=== PATIENT | female | born 1935 | race Hispanic/Latino ===

== ENCOUNTER 2018-08-10 13:44 | Inpatient (IN) | payer MEDICARE ==
[2018-08-10] MEDS ORDERED: NACL 0.9% 250ML 500 ML IV ONE (14:09)
[2018-08-10] MEDS ORDERED: TYLENOL PO PRN ×2 (14:09→17:42)
[2018-08-10 14:39] LABS: Basophils # (Auto) 0.1 K/mm3 (0.0-0.1); Basophils % (Auto) 0.7 % (0.0-1.8); Eosinophils # (Auto) 0.1 K/mm3 (0.0-0.4); Eosinophils % (Auto) 1.4 % (0.0-4.3); Hematocrit 38.5 % (30.3-42.9); Hemoglobin 13.3 gm/dl (10.1-14.3); Lymphocytes % (Auto) 10.5 % (13.4-35.0); Mean Corpuscular HGB Conc 35 % (30-34); Mean Corpuscular Volume 94 fl (79-97); Monocytes # (Auto) 1.1 K/mm3 (0.0-0.8); Platelet Count 375 K/mm3 (140-440); Red Blood Count 4.09 M/mm3 (3.65-5.03); Red Cell Distribution Width 13.7 % (13.2-15.2)
[2018-08-10 15:06] LABS: Bacteria,Urine 3+ /HPF (Negative); Bilirubin,Urine NEG (Negative); Blood,Urine SM (Negative); Color,Urine Yellow (Yellow); Mucus,Urine FEW /HPF; Protein,Urine <15 mg/dL mg/dL (Negative); Urobilinogen,Urine < 2.0 mg/dL (<2.0)
[2018-08-10 15:07] LABS: Alanine Aminotransferase 7 units/L (7-56); BUN/Creatinine Ratio 10; Blood Urea Nitrogen 9 mg/dL (7-17); Calcium 8.5 mg/dL (8.4-10.2); Hemolysis Index 13
--- NOTE | 2018-08-10 15:22 | XRay Report ---
CHEST 1 VIEW 08/10/2018 2:40 PM INDICATION / CLINICAL INFORMATION: hypoxia fever. COMPARISON: None available. FINDINGS: SUPPORT DEVICES: None. HEART / MEDIASTINUM: No significant abnormality. LUNGS / PLEURA: Bilateral increased interstitial prominence likely secondary to interstitial fibrosis . No pneumothorax. ADDITIONAL FINDINGS: No significant additional findings. IMPRESSION: 1. No acute findings. 2. Probable chronic interstitial fibrosis. Signer Name: Armando Barriga MD Signed: 08/10/2018 2:18 PM Workstation Name: [id number]
--- NOTE | 2018-08-10 15:23 | XRay Report ---
AP PELVIS INDICATION / CLINICAL INFORMATION: fall weak. COMPARISON: None available. FINDINGS: No fracture or dislocation is seen within the pelvis or either hip. Moderate left and advanced right hip degenerative arthrosis is present. Signer Name: Armando Barriga MD Signed: 08/10/2018 2:19 PM Workstation Name: [id number]
[2018-08-10] MEDS ORDERED: PROVENTIL IH ONE (15:58)
[2018-08-10] MEDS ORDERED: K-DUR PO ONE (15:59)
[2018-08-10] MEDS ORDERED: LEVAQUIN 500MG/100ML 500 MG/100 ML BAG IV ONE (15:59)
[2018-08-10] MEDS ORDERED: SOLU-Medrol IV ONE (16:00)
--- NOTE | 2018-08-10 16:00 | Emergency Department Report ---
ED General Adult HPI - General Chief complaint: Weakness Stated complaint: WEAKNESS Time Seen by Provider: 08/10/18 14:02 Source: patient, EMS (ems notes not available at time of chart dictation), RN notes reviewed Mode of arrival: Stretcher Limitations: Physical Limitation - History of Present Illness Initial comments: This is a pleasant 82-year-old female. The patient is not known to this provider previously. Apparently has a past history of obesity, diabetes, and indicates that her primary care doctor is Dr. Miller She also indicates that she has chronic lower extremity lymphedema, and probable venous stasis. Patient presents to the ER today with a complaint of weakness. Apparently, she fell, and could not get up. She endorses a dry cough, and shortness of breath, malaise and fatigue. Symptoms are constant, worse with physical exertion and decreased with rest. She does not have physical pain at this time that she is aware of. She is unable to describe exacerbating or relieving factors. -: unknown Severity scale (0 -10): 0 Consistency: constant Improves with: none Worsens with: none - Related Data Home Medications Medication Instructions Recorded Confirmed Last Taken Anastrozole 1 mg PO DAILY 06/19/14 06/22/14 06/21/14 Brimonidine Tartrate [Brimonidine 1 drop OU BID 06/19/14 06/22/14 06/21/14 Tartrate 0.15%] Epinastine HCl 1 drop OU BID 06/19/14 06/22/14 06/21/14 Glimepiride 4 mg PO DAILY 06/19/14 06/22/14 06/21/14 LORazepam [Ativan] 0.5 mg PO QHS 06/19/14 06/22/14 06/21/14 Latanoprost 1 drop OU HS 06/19/14 06/22/14 06/21/14 Levothyroxine [Synthroid] 125 mcg PO QAM 06/19/14 06/22/14 06/22/14 Melatonin/Pyridoxine HCl (B6) 1 each PO HS 06/19/14 06/22/14 06/21/14 [Melatonin 1 mg Tablet] Metformin HCl 500 mg PO BID 06/19/14 06/22/14 06/21/14 Potassium Chloride [K-Tab ER] 10 meq PO DAILY 06/19/14 06/22/14 06/21/14 Valsartan/Hydrochlorothiazide 1 tab PO DAILY 06/19/14 06/22/14 06/22/14 [Valsartan-Hctz 80-12.5 mg] Allergies Allergy/AdvReac Type Severity Reaction Status Date / Time cefaclor [From [facility]] Allergy Hives Verified 06/19/14 11:51 BLOOD PRESSURE MED AdvReac Itching Uncoded 06/19/14 11:51 ED Review of Systems ROS: Stated complaint: WEAKNESS Other details as noted in HPI Constitutional: malaise, weakness Eyes: denies: other ENT: denies: epistaxis Respiratory: denies: wheezing Cardiovascular: denies: syncope Gastrointestinal: denies: abdominal pain, nausea, vomiting Genitourinary: denies: dysuria Musculoskeletal: arthralgia, myalgia Skin: rash, lesions Neurological: weakness. denies: headache ED Past Medical Hx - Past Medical History Previous Medical History?: Yes Hx Hypertension: Yes Hx Diabetes: Yes Hx Renal Disease: No - Surgical History Past Surgical History?: Yes Hx Breast Surgery: Yes (RIGHT LUMPECTOMY) - Social History Smoking Status: Former Smoker Substance Use Type: None - Medications Home Medications: Home Medications Medication Instructions Recorded Confirmed Last Taken Type Anastrozole 1 mg PO DAILY 06/19/14 06/22/14 06/21/14 History Brimonidine Tartrate [Brimonidine 1 drop OU BID 06/19/14 06/22/14 06/21/14 History Tartrate 0.15%] Epinastine HCl 1 drop OU BID 06/19/14 06/22/14 06/21/14 History Glimepiride 4 mg PO DAILY 06/19/14 06/22/14 06/21/14 History LORazepam [Ativan] 0.5 mg PO QHS 06/19/14 06/22/14 06/21/14 History Latanoprost 1 drop OU HS 06/19/14 06/22/14 06/21/14 History Levothyroxine [Synthroid] 125 mcg PO QAM 06/19/14 06/22/14 06/22/14 History Melatonin/Pyridoxine HCl (B6) 1 each PO HS 06/19/14 06/22/14 06/21/14 History [Melatonin 1 mg Tablet] Metformin HCl 500 mg PO BID 06/19/14 06/22/14 06/21/14 History Potassium Chloride [K-Tab ER] 10 meq PO DAILY 06/19/14 06/22/14 06/21/14 History Valsartan/Hydrochlorothiazide 1 tab PO DAILY 06/19/14 06/22/14 06/22/14 History [Valsartan-Hctz 80-12.5 mg] ED Physical Exam - General Limitations: Physical Limitation General appearance: alert, in no apparent distress - Head Head exam: Present: atraumatic, normocephalic - Eye Eye exam: Present: normal appearance, EOMI. Absent: nystagmus - ENT ENT exam: Present: normal exam, normal orophraynx, mucous membranes dry, normal external ear exam - Neck Neck exam: Present: normal inspection, full ROM. Absent: tenderness, meningismus - Respiratory Respiratory exam: Present: rhonchi. Absent: respiratory distress, wheezes, rales, chest wall tenderness, accessory muscle use - Cardiovascular Cardiovascular Exam: Present: regular rate, normal rhythm, normal heart sounds. Absent: bradycardia, tachycardia, irregular rhythm, systolic murmur, diastolic murmur, rubs, gallop - GI/Abdominal GI/Abdominal exam: Present: soft. Absent: distended, tenderness, guarding, rebound, rigid, pulsatile mass - Extremities Exam Extremities exam: Present: full ROM, pedal edema, other (2+ pulses noted in the bilateral upper, lower extremities. Compartments soft. No long bony tenderness. The pelvis is stable.). Absent: normal inspection (chronic appearing circumferential nontender erythema noted on the bilateral lower extremity is. This is likely venous stasis. Also has encrusted lesions, chronic appearing, with no tenderness.), tenderness, calf tenderness - Back Exam Back exam: Present: normal inspection, full ROM. Absent: tenderness, CVA tenderness (R), CVA tenderness (L), paraspinal tenderness, vertebral tenderness - Neurological Exam Neurological exam: Present: alert, oriented X3, other (Extraocular movements intact. Tongue midline. No facial droop. Facial sensation intact to light touch in the V1, V2, V3 distribution bilaterally. 5 and 5 strength in 4 extremities.. Sensation is intact to light touch in 4 extremities.). Absent: motor sensory deficit - Psychiatric Psychiatric exam: Present: normal affect, normal mood - Skin Skin exam: Present: warm. Absent: rash ED Course Vital Signs 08/10/18 08/10/18 08/10/18 13:57 14:00 14:03 Temperature 99.3 F Pulse Rate 84 Respiratory 20 Rate Blood Pressure 157/44 154/44 O2 Sat by Pulse 85 90 85 Oximetry 08/10/18 08/10/18 08/10/18 14:16 14:30 14:46 Temperature Pulse Rate 80 84 77 Respiratory 10 L 25 H 32 H Rate Blood Pressure 157/44 157/44 157/44 O2 Sat by Pulse 94 88 96 Oximetry 08/10/18 08/10/18 08/10/18 14:49 14:52 15:00 Temperature 99.5 F Pulse Rate 79 Respiratory 32 H 19 Rate Blood Pressure 148/52 O2 Sat by Pulse 96 92 Oximetry 08/10/18 16:00 Temperature Pulse Rate Respiratory Rate Blood Pressure 157/44 O2 Sat by Pulse 94 Oximetry - Reevaluation(s) Reevaluation #1: 08/10/18 16:05 Differential diagnosis, including but not limited to: Intracranial injury, cervical spine injury, pneumonia, reactive airway disease, COPD, interstitial lung disease, urinary tract infection, physical deconditioning Assessment and plan: 82-year-old female with low-grade temperature, rhonchi, hypoxic on room air, arterial blood gas confirms hypoxemic respiratory failure, CT scan of the chest looks suspicious for interstitial lung disease, question pneumonia, and urinalysis suggests urinary tract infection. Patient will be treated with nebulizers, steroids, antibiotics and IV fluids. Hospital physician has been paged to arrange admission. Reevaluation #2: 08/10/18 16:29 CT scan of the brain and cervical spine negative for acute traumatic disease. Age related expected findings are noted. CT scan of the chest suggests multi lobar pneumonia. The Hospital physician, Dr. Richardson, has accepted the patient to his service. ED Medical Decision Making - Lab Data Result diagrams: 08/10/18 14:20 08/10/18 14:20 Vital Signs 08/10/18 08/10/18 08/10/18 13:57 14:00 14:03 Temperature 99.3 F Pulse Rate 84 Respiratory 20 Rate Blood Pressure 157/44 154/44 O2 Sat by Pulse 85 90 85 Oximetry 08/10/18 08/10/18 08/10/18 14:16 14:30 14:46 Temperature Pulse Rate 80 84 77 Respiratory 10 L 25 H 32 H Rate Blood Pressure 157/44 157/44 157/44 O2 Sat by Pulse 94 88 96 Oximetry 08/10/18 08/10/18 08/10/18 14:49 14:52 15:00 Temperature 99.5 F Pulse Rate 79 Respiratory 32 H 19 Rate Blood Pressure 148/52 O2 Sat by Pulse 96 92 Oximetry Lab Results 08/10/18 08/10/18 08/10/18 Range/Units 14:20 14:20 14:20 WBC 9.5 (4.5-11.0) K/mm3 RBC 4.09 (3.65-5.03) M/mm3 Hgb 13.3 (10.1-14.3) gm/dl Hct 38.5 (30.3-42.9) % MCV 94 (79-97) fl MCH 33 H (28-32) pg MCHC 35 H (30-34) % RDW 13.7 (13.2-15.2) % Plt Count 375 (140-440) K/mm3 Lymph % (Auto) 10.5 L (13.4-35.0) % Mayes % (Auto) 11.0 H (0.0-7.3) % Eos % (Auto) 1.4 (0.0-4.3) % Baso % (Auto) 0.7 (0.0-1.8) % Lymph # 1.0 L (1.2-5.4) K/mm3 Mayes # 1.1 H (0.0-0.8) K/mm3 Eos # 0.1 (0.0-0.4) K/mm3 Baso # 0.1 (0.0-0.1) K/mm3 Seg Neutrophils % 76.4 H (40.0-70.0) % Seg Neutrophils # 7.3 (1.8-7.7) K/mm3 APTT 43.6 H (24.2-36.6) Sec. POC ABG pH (7.35-7.45) POC ABG pCO2 (35-45) POC ABG pO2 (80-105) POC ABG HCO3 (22-26 mml/L) POC ABG Total CO2 (23-27mmol/L) POC ABG O2 Sat POC ABG Base Excess ((-2) - (+3)mmol/L) FiO2 % Sodium 144 (137-145) mmol/L Potassium 2.9 L* (3.6-5.0) mmol/L Chloride 102.6 (98-107) mmol/L Carbon Dioxide 28 (22-30) mmol/L Anion Gap 16 mmol/L BUN 9 (7-17) mg/dL Creatinine 0.9 (0.7-1.2) mg/dL Estimated GFR > 60 ml/min BUN/Creatinine Ratio 10 % Glucose 131 H (65-100) mg/dL Lactic Acid (0.7-2.0) mmol/L Calcium 8.5 (8.4-10.2) mg/dL Magnesium (1.7-2.3) mg/dL Total Bilirubin 1.00 (0.1-1.2) mg/dL AST 16 (5-40) units/L ALT 7 (7-56) units/L Alkaline Phosphatase 87 (35-129) units/L Total Creatine Kinase (30-135) units/L Troponin T < 0.010 (0.00-0.029) ng/mL NT-Pro-B Natriuret Pep (0-900) pg/mL Total Protein 6.5 (6.3-8.2) g/dL Albumin 3.0 L (3.9-5) g/dL Albumin/Globulin Ratio 0.9 % TSH (0.270-4.200) mlU/mL Urine Color (Yellow) Urine Turbidity (Clear) Urine pH (5.0-7.0) Ur Specific [place] (1.003-1.030) Urine Protein (Negative) mg/dL Urine Glucose (UA) (Negative) mg/dL Urine Ketones (Negative) mg/dL Urine Blood (Negative) Urine Nitrite (Negative) Urine Bilirubin (Negative) Urine Urobilinogen (<2.0) mg/dL Ur Leukocyte Esterase (Negative) Urine WBC (Auto) (0.0-6.0) /HPF Urine RBC (Auto) (0.0-6.0) /HPF U Epithel Cells (Auto) (0-13.0) /HPF Urine Bacteria (Auto) (Negative) /HPF Urine Mucus /HPF 08/10/18 08/10/18 08/10/18 Range/Units 14:20 14:20 14:20 WBC (4.5-11.0) K/mm3 RBC (3.65-5.03) M/mm3 Hgb (10.1-14.3) gm/dl Hct (30.3-42.9) % MCV (79-97) fl MCH (28-32) pg MCHC (30-34) % RDW (13.2-15.2) % Plt Count (140-440) K/mm3 Lymph % (Auto) (13.4-35.0) % Mayes % (Auto) (0.0-7.3) % Eos % (Auto) (0.0-4.3) % Baso % (Auto) (0.0-1.8) % Lymph # (1.2-5.4) K/mm3 Mayes # (0.0-0.8) K/mm3 Eos # (0.0-0.4) K/mm3 Baso # (0.0-0.1) K/mm3 Seg Neutrophils % (40.0-70.0) % Seg Neutrophils # (1.8-7.7) K/mm3 APTT (24.2-36.6) Sec. POC ABG pH (7.35-7.45) POC ABG pCO2 (35-45) POC ABG pO2 (80-105) POC ABG HCO3 (22-26 mml/L) POC ABG Total CO2 (23-27mmol/L) POC ABG O2 Sat POC ABG Base Excess ((-2) - (+3)mmol/L) FiO2 % Sodium (137-145) mmol/L Potassium (3.6-5.0) mmol/L Chloride (98-107) mmol/L Carbon Dioxide (22-30) mmol/L Anion Gap mmol/L BUN (7-17) mg/dL Creatinine (0.7-1.2) mg/dL Estimated GFR ml/min BUN/Creatinine Ratio % Glucose (65-100) mg/dL Lactic Acid 1.30 (0.7-2.0) mmol/L Calcium (8.4-10.2) mg/dL Magnesium 2.00 (1.7-2.3) mg/dL Total Bilirubin (0.1-1.2) mg/dL AST (5-40) units/L ALT (7-56) units/L Alkaline Phosphatase (35-129) units/L Total Creatine Kinase 78 (30-135) units/L Troponin T (0.00-0.029) ng/mL NT-Pro-B Natriuret Pep 598.3 (0-900) pg/mL Total Protein (6.3-8.2) g/dL Albumin (3.9-5) g/dL Albumin/Globulin Ratio % TSH 1.380 (0.270-4.200) mlU/mL Urine Color (Yellow) Urine Turbidity (Clear) Urine pH (5.0-7.0) Ur Specific [place] (1.003-1.030) Urine Protein (Negative) mg/dL Urine Glucose (UA) (Negative) mg/dL Urine Ketones (Negative) mg/dL Urine Blood (Negative) Urine Nitrite (Negative) Urine Bilirubin (Negative) Urine Urobilinogen (<2.0) mg/dL Ur Leukocyte Esterase (Negative) Urine WBC (Auto) (0.0-6.0) /HPF Urine RBC (Auto) (0.0-6.0) /HPF U Epithel Cells (Auto) (0-13.0) /HPF Urine Bacteria (Auto) (Negative) /HPF Urine Mucus /HPF 08/10/18 08/10/18 08/10/18 Range/Units 14:30 14:49 15:06 WBC (4.5-11.0) K/mm3 RBC (3.65-5.03) M/mm3 Hgb (10.1-14.3) gm/dl Hct (30.3-42.9) % MCV (79-97) fl MCH (28-32) pg MCHC (30-34) % RDW (13.2-15.2) % Plt Count (140-440) K/mm3 Lymph % (Auto) (13.4-35.0) % Mayes % (Auto) (0.0-7.3) % Eos % (Auto) (0.0-4.3) % Baso % (Auto) (0.0-1.8) % Lymph # (1.2-5.4) K/mm3 Mayes # (0.0-0.8) K/mm3 Eos # (0.0-0.4) K/mm3 Baso # (0.0-0.1) K/mm3 Seg Neutrophils % (40.0-70.0) % Seg Neutrophils # (1.8-7.7) K/mm3 APTT (24.2-36.6) Sec. POC ABG pH 7.483 H (7.35-7.45) POC ABG pCO2 38.2 (35-45) POC ABG pO2 50 L (80-105) POC ABG HCO3 28.6 (22-26 mml/L) POC ABG Total CO2 30 (23-27mmol/L) POC ABG O2 Sat 88 POC ABG Base Excess 5 ((-2) - (+3)mmol/L) FiO2 21 % Sodium (137-145) mmol/L Potassium (3.6-5.0) mmol/L Chloride (98-107) mmol/L Carbon Dioxide (22-30) mmol/L Anion Gap mmol/L BUN (7-17) mg/dL Creatinine (0.7-1.2) mg/dL Estimated GFR ml/min BUN/Creatinine Ratio % Glucose (65-100) mg/dL Lactic Acid (0.7-2.0) mmol/L Calcium (8.4-10.2) mg/dL Magnesium (1.7-2.3) mg/dL Total Bilirubin (0.1-1.2) mg/dL AST (5-40) units/L ALT (7-56) units/L Alkaline Phosphatase (35-129) units/L Total Creatine Kinase (30-135) units/L Troponin T (0.00-0.029) ng/mL NT-Pro-B Natriuret Pep 571.8 (0-900) pg/mL Total Protein (6.3-8.2) g/dL Albumin (3.9-5) g/dL Albumin/Globulin Ratio % TSH (0.270-4.200) mlU/mL Urine Color Yellow (Yellow) Urine Turbidity Slightly-cloudy (Clear) Urine pH 7.0 (5.0-7.0) Ur Specific [place] 1.016 (1.003-1.030) Urine Protein <15 mg/dl (Negative) mg/dL Urine Glucose (UA) Neg (Negative) mg/dL Urine Ketones Neg (Negative) mg/dL Urine Blood Sm (Negative) Urine Nitrite Pos (Negative) Urine Bilirubin Neg (Negative) Urine Urobilinogen < 2.0 (<2.0) mg/dL Ur Leukocyte Esterase Tr (Negative) Urine WBC (Auto) 19.0 H (0.0-6.0) /HPF Urine RBC (Auto) 4.0 (0.0-6.0) /HPF U Epithel Cells (Auto) 3.0 (0-13.0) /HPF Urine Bacteria (Auto) 3+ (Negative) /HPF Urine Mucus Few /HPF - EKG Data -: EKG Interpreted by Nm EKG shows normal: sinus rhythm Rate: normal - EKG Data When compared to previous EKG there are: previous EKG unavailable 08/10/18 16:07 This is a sinus rhythm, 80 beats per minute, normal axis, QTC prolonged, low voltage, motion artifact, axis, abnormal EKG, no prior for comparison, this EKG is not consistent with ST elevation myocardial infarction - Radiology Data Radiology results: pending, report reviewed, image reviewed X-ray the chest shows no traumatic findings. Chronic probable interstitial fibrosis is suggested. X-ray of the pelvis negative for acute disease. Chronic arthritic changes suggestive. Report Referring Physician: ELIUD MEDRANO Patient Name: JUNIOR SADLER Date of : 1935 Sex: Female Report Date: 2018-08-10 Report Status: [place] [address] Cat Scan Report Signed Patient: JUNIOR SADLER MR#: [id number] : 1935 Acct:[id number] Age/Sex: 82 / F ADM Date: 08/10/18 Loc: ED Attending Dr: Ordering Physician: ELIUD MEDRANO MD Date of Service: 08/10/18 Procedure(s): CT head/brain wo con Accession Number(s): [id number] cc: ELIUD MEDRANO MD CT HEAD WITHOUT CONTRAST HISTORY: Acute head trauma, pain, fall today. TECHNIQUE: Axial imaging performed from the skull apex through the skull base without the use of contrast. All CT scans at this location are performed using CT dose reduction for ALARA by means of automated exposure control. COMPARISON: None FINDINGS: Parenchyma: No acute intracranial hemorrhage or parenchymal abnormality. Mild chronic ischemic changes are noted in the white matter. Ventricles: There is mild diffuse brain atrophy with commensurate ventricular enlargement which is likely age appropriate. Soft tissues: Soft tissues including the orbits appear normal. Bones: No acute osseous abnormality. Sinuses: Sinuses and mastoid air cells are clear. IMPRESSION: No acute abnormality. Volume loss and chronic ischemic changes in the white matter. CT CERVICAL SPINE WITHOUT CONTRAST INDICATION: Acute neck pain, trauma, fall today. TECHNIQUE: Axial imaging performed through the cervical without the use of contrast. Sagittal and coronal reconstructed images were also reviewed. All CT scans at this location are performed using CT dose reduction for ALARA by means of automated exposure control. COMPARISON: None FINDINGS: Alignment: Spinal alignment is normal. Bones: There is no acute osseous abnormality. Mild multilevel discogenic DJD is present. Minimal diffuse facet arthropathy is appreciated. Mild osteopenia is noted. Soft tissues: No acute or significant incidental soft tissue abnormality. IMPRESSION: No acute abnormality. Mild multilevel cervical spondylosis. Mild osteopenia. CT CHEST WITHOUT CONTRAST INDICATION : Hypoxia, right-sided rhonchi, status post fall today, productive cough for 2 weeks. TECHNIQUE: Axial imaging performed through the chest without the use of intravenous contrast. All CT scans at this location are performed us ing CT dose reduction for ALARA by means of automated exposure control. COMPARISON: None FINDINGS: The thyroid gland is atrophic. The tracheobronchial tree and esophagus are within normal limits. Heart size is borderline with moderate coronary artery calcifications. The aorta is normal caliber. Normal pericardium. Mild underlying diffuse groundglass infiltration is present in both lungs. There is patchy airspace disease in the posterior right upper lobe and superior right lower lobe. An infectious infiltrate could be considered. There is no evidence for consolidation, mass, pleural effusion or pneumothorax. The bony structures are demineralized but intact. Moderate multilevel thoracic spondylosis is noted. IMPRESSION: Patchy infiltrate in the right lung as described. Correlate for pneumonia. Borderline to mild cardiomegaly. Degenerative changes in the spine. Signer Name: Quang Conn Jr, MD Signed: 08/10/2018 3:22 PM Workstation Name: [id number] Transcribed By: REF Dictated By: MOE ATKINSON MD Electronically Authenticated By: MOE ATKINSON MD Signed Date/Time: 08/10/18 1522 Critical care attestation.: If time is entered above; I have spent that time in minutes in the direct care of this critically ill patient, excluding procedure time. ED Disposition Clinical Impression: Acute respiratory failure with hypoxemia, Debility Urinary tract infection Qualifiers: Indwelling urinary catheter type: unspecified Encounter type: initial encounter Disposition: OP ADMIT IP TO THIS HOSP Is pt being admited?: Yes Condition: Fair Referrals: JESSICA WAYNE [Other] - 3-5 Days
--- NOTE | 2018-08-10 16:26 | Cat Scan Report ---
CT HEAD WITHOUT CONTRAST HISTORY: Acute head trauma, pain, fall today. TECHNIQUE: Axial imaging performed from the skull apex through the skull base without the use of con trast. All CT scans at this location are performed using CT dose reduction for ALARA by means of aut omated exposure control. COMPARISON: None FINDINGS: Parenchyma: No acute intracranial hemorrhage or parenchymal abnormality. Mild chronic ischemic ho es are noted in the white matter. Ventricles: There is mild diffuse brain atrophy with commensurate ventricular enlargement which is l ikely age appropriate. Soft tissues: Soft tissues including the orbits appear normal. Bones: No acute osseous abnormality. Sinuses: Sinuses and mastoid air cells are clear. IMPRESSION: No acute abnormality. Volume loss and chronic ischemic changes in the white matter. CT CERVICAL SPINE WITHOUT CONTRAST INDICATION: Acute neck pain, trauma, fall today. TECHNIQUE: Axial imaging performed through the cervical without the use of contrast. Sagittal and c oronal reconstructed images were also reviewed. All CT scans at this location are performed using CT dose reduction for ALARA by means of automated exposure control. COMPARISON: None FINDINGS: Alignment: Spinal alignment is normal. Bones: There is no acute osseous abnormality. Mild multilevel discogenic DJD is present. Minimal d iffuse facet arthropathy is appreciated. Mild osteopenia is noted. Soft tissues: No acute or significant incidental soft tissue abnormality. IMPRESSION: No acute abnormality. Mild multilevel cervical spondylosis. Mild osteopenia. CT CHEST WITHOUT CONTRAST INDICATION : Hypoxia, right-sided rhonchi, status post fall today, productive cough for 2 weeks. TECHNIQUE: Axial imaging performed through the chest without the use of intravenous contrast. All C T scans at this location are performed using CT dose reduction for ALARA by means of automated exposu re control. COMPARISON: None FINDINGS: The thyroid gland is atrophic. The tracheobronchial tree and esophagus are within normal l imits. Heart size is borderline with moderate coronary artery calcifications. The aorta is normal shaina iber. Normal pericardium. Mild underlying diffuse groundglass infiltration is present in both lungs. There is patchy airspace d isease in the posterior right upper lobe and superior right lower lobe. An infectious infiltrate coul d be considered. There is no evidence for consolidation, mass, pleural effusion or pneumothorax. The bony structures are demineralized but intact. Moderate multilevel thoracic spondylosis is noted. IMPRESSION: Patchy infiltrate in the right lung as described. Correlate for pneumonia. Borderline to mild cardiomegaly. Degenerative changes in the spine. Signer Name: Quang Conn Jr, MD Signed: 08/10/2018 3:22 PM Workstation Name: [id number]
[2018-08-10] MEDS ORDERED: NACL 0.9% 500 ML 500 ML IV ONE (16:30)
[2018-08-10] MEDS: KCL 10MEQ/100ML 10 MEQ/100 ML BAG IV SCH ×5 (16:52→21:39)
[2018-08-10] MEDS ORDERED: PROVENTIL IH PRN (17:41)
[2018-08-10] MEDS ORDERED: IBUPROFEN PO PRN (17:42)
[2018-08-10] MEDS ORDERED: SODIUM CHLORIDE FLUSH SYRINGE 10 ML IV PRN (17:42)
[2018-08-10] MEDS ORDERED: DILAUDID IV PRN (17:42)
[2018-08-10] MEDS ORDERED: ZOFRAN IV PRN (17:42)
[2018-08-10] MEDS ORDERED: KCL 10MEQ/100ML 10 MEQ/100 ML BAG IV ONE (17:46)
[2018-08-10] MEDS ORDERED: NON-FORMULARY (Levothyroxine Sodium [Synthroid] 137 MCG) PO SCH (18:00)
[2018-08-10] MEDS ORDERED: NON-FORMULARY (Potassium Chloride [K-Tab Er] 10 MEQ) PO SCH (18:00)
[2018-08-10] MEDS ORDERED: NON-FORMULARY (Telmisartan [Telmisartan] 40 MG) PO SCH (18:00)
--- NOTE | 2018-08-10 18:23 | History and Physical Report ---
History of Present Illness Date of examination: 08/10/18 Date of admission: 08/10/18 16:30 Chief complaint: Fall with the neck pain and weakness and difficulty getting up Cough and shortness of breath for 3 days. History of present illness: 82-year-old female with history of type 2 diabetes hypothyroidism and hypertension comes in for a fall from which she could not get up. Patient has some neck pain. Patient also has been coughing and short of breath for the last 3-4 days. Dry cough. Nonproductive. No fever or chills. Becomes short of breath with very minimal exertion. Also some wheezing present. Patient also has swelling of the of both lower extremities. No pain. No recent travel. No exacerbating or relieving factors. No history of COPD in the past. Past Medical History Previous Medical History?: Yes Hypertension: Yes Diabetes: Yes Hypothyroidism Glaucoma Breast cancer by history Recurrent hypokalemia Surgical History Past Surgical History?: Yes Breast Surgery: Yes (RIGHT LUMPECTOMY) Social History Smoking Status: Former Smoker Substance Use Type: None Family history Htn Medications Home Medications: Home Medications Medication Instructions Recorded Confirmed Last Taken Type Anastrozole 1 mg PO DAILY 06/19/14 06/22/14 06/21/14 History Brimonidine Tartrate [Brimonidine 1 drop OU BID 06/19/14 06/22/14 06/21/14 History Tartrate 0.15%] Epinastine HCl 1 drop OU BID 06/19/14 06/22/14 06/21/14 History Glimepiride 4 mg PO DAILY 06/19/14 06/22/14 06/21/14 History LORazepam [Ativan] 0.5 mg PO QHS 06/19/14 06/22/14 06/21/14 History Latanoprost 1 drop OU HS 06/19/14 06/22/14 06/21/14 History Levothyroxine [Synthroid] 125 mcg PO QAM 06/19/14 06/22/14 06/22/14 History Melatonin/Pyridoxine HCl (B6) 1 each PO HS 06/19/14 06/22/14 06/21/14 History [Melatonin 1 mg Tablet] Metformin HCl 500 mg PO BID 06/19/14 06/22/14 06/21/14 History Potassium Chloride [K-Tab ER] 10 meq PO DAILY 06/19/14 06/22/14 06/21/14 History Valsartan/Hydrochlorothiazide 1 tab PO DAILY 06/19/14 06/22/14 06/22/14 History [Valsartan-Hctz 80-12.5 mg] Review of systems ROS: Stated complaint: WEAKNESS Other details as noted in HPI Constitutional: malaise, weakness Eyes: denies: other ENT: denies: epistaxis Respiratory: wheezing, cough and shortness of breath Cardiovascular: denies: syncope Gastrointestinal: denies: abdominal pain, nausea, vomiting Genitourinary: denies: dysuria Musculoskeletal: arthralgia, myalgia Skin: rash, lesions Neurological: weakness. denies: headache 14 point review of systems done--- otherwise negative Medications and Allergies Allergies Allergy/AdvReac Type Severity Reaction Status Date / Time cefaclor [From Ceclor] Allergy Hives Verified 06/19/14 11:51 ciprofloxacin [From Cipro] Allergy Unknown Verified 08/10/18 16:56 levofloxacin [From Levaquin] Allergy Unknown Verified 08/10/18 16:56 Sulfa (Sulfonamide Allergy Unknown Verified 08/10/18 16:56 Antibiotics) lisinopril AdvReac Unknown Verified 08/10/18 16:56 usinadol Allergy Unknown Uncoded 08/10/18 16:56 BLOOD PRESSURE MED AdvReac Itching Uncoded 06/19/14 11:51 Home Medications Medication Instructions Recorded Confirmed Last Taken Type Latanoprost 1 drop OU HS 06/19/14 08/10/18 06/21/14 History Potassium Chloride [K-Tab ER] 10 meq PO DAILY 06/19/14 08/10/18 06/21/14 History Levothyroxine Sodium [Synthroid] 137 mcg PO QDAY 08/10/18 08/10/18 Unknown History Telmisartan 40 mg PO QDAY 08/10/18 08/10/18 Unknown History metFORMIN XR [Glucophage XR] 500 mg PO BID 08/10/18 08/10/18 Unknown History Active Meds: Active Medications Acetaminophen (Tylenol) 650 mg PO Q6H PRN PRN Reason: Pain, Mild (1-3) Acetaminophen (Tylenol) 650 mg PO Q4H PRN PRN Reason: Pain MILD(1-3)/Fever >100.5/BAKER Albuterol (Proventil) 2.5 mg IH Q4HRT PRN PRN Reason: Shortness Of Breath Albuterol/Ipratropium (Duoneb *Not For Prn Use*) 1 ampul IH QIDRT [facility] Famotidine (Pepcid) 20 mg IV BID [facility] Hydromorphone HCl (Dilaudid) 0.5 mg IV Q3H PRN PRN Reason: Pain , Severe (7-10) Ceftriaxone Sodium (Rocephin/Ns 2 Gm/100 Ml) 2 gm in 100 mls @ 200 mls/hr IV Q24HR [facility]; Protocol Azithromycin 500 mg/ Sodium (Chloride) 250 mls @ 250 mls/hr IV Q24HR [facility]; Protocol Potassium Chloride (Kcl 10meq/100ml) 10 meq in 100 mls @ 100 mls/hr IV Q1H [facility] Stop: 08/10/18 21:59 Ibuprofen (Ibuprofen) 600 mg PO Q6H PRN PRN Reason: Pain, Mild (1-3) Insulin Human Lispro (Humalog) 0 unit SUB-Q ACHS [facility]; Protocol Latanoprost (Latanoprost 0.005%) 1 drops OU HS [facility] Levothyroxine Sodium (Synthroid) 112 mcg PO DAILY@0600 [facility] Levothyroxine Sodium (Synthroid) 25 mcg PO DAILY@0600 [facility] Losartan Potassium (Cozaar) 50 mg PO QDAY [facility] Metformin HCl (Glucophage Xr) 500 mg PO BID [facility] Methylprednisolone Sodium Succinate (Solu-Medrol) 80 mg IV Q8HR [facility] Ondansetron HCl (Zofran) 4 mg IV Q8H PRN PRN Reason: Nausea And Vomiting Potassium Chloride (K-Dur) 10 meq PO QDAY [facility] Sodium Chloride (Sodium Chloride Flush Syringe 10 Ml) 10 ml IV BID [facility] Sodium Chloride (Sodium Chloride Flush Syringe 10 Ml) 10 ml IV PRN PRN PRN Reason: LINE FLUSH Exam - Constitutional Vitals: Temp Pulse Resp BP Pulse Ox 99.5 F 87 11 L 145/59 91 08/10/18 14:49 08/10/18 18:00 08/10/18 18:00 08/10/18 18:00 08/10/18 18:00 General appearance: Present: severe distress, well-nourished - EENT Eyes: Present: PERRL ENT: hearing intact, clear oral mucosa - Neck Neck: Present: supple, normal ROM - Respiratory Respiratory effort: normal Respiratory: bilateral: diminished, rhonchi - Cardiovascular Heart rate: 78 Rhythm: regular Heart Sounds: Present: S1 & S2. Absent: rub, click - Extremities Extremities: no ischemia, pulses intact, pulses symmetrical, No edema Peripheral Pulses: within normal limits - Abdominal General gastrointestinal: Present: soft, non-tender, non-distended, normal bowel sounds Female genitourinary: Present: normal - Rectal Rectal Exam: deferred - Integumentary Integumentary: Present: clear, warm, dry - Musculoskeletal Musculoskeletal: gait normal, strength equal bilaterally - Psychiatric Psychiatric: appropriate mood/affect, intact judgment & insight - Neurologic Neurologic: CNII-XII intact, moves all extremities - Allied Health Allied health notes reviewed: nursing, case management Results - Labs CBC & Chem 7: 08/10/18 14:20 08/10/18 14:20 Labs: Laboratory Last Values WBC 9.5 K/mm3 (4.5-11.0) 08/10/18 14:20 RBC 4.09 M/mm3 (3.65-5.03) 08/10/18 14:20 Hgb 13.3 gm/dl (10.1-14.3) 08/10/18 14:20 Hct 38.5 % (30.3-42.9) 08/10/18 14:20 MCV 94 fl (79-97) 08/10/18 14:20 MCH 33 pg (28-32) H 08/10/18 14:20 MCHC 35 % (30-34) H 08/10/18 14:20 RDW 13.7 % (13.2-15.2) 08/10/18 14:20 Plt Count 375 K/mm3 (140-440) 08/10/18 14:20 Lymph % (Auto) 10.5 % (13.4-35.0) L 08/10/18 14:20 [place] % (Auto) 11.0 % (0.0-7.3) H 08/10/18 14:20 Eos % (Auto) 1.4 % (0.0-4.3) 08/10/18 14:20 Baso % (Auto) 0.7 % (0.0-1.8) 08/10/18 14:20 Lymph # 1.0 K/mm3 (1.2-5.4) L 08/10/18 14:20 [place] # 1.1 K/mm3 (0.0-0.8) H 08/10/18 14:20 Eos # 0.1 K/mm3 (0.0-0.4) 08/10/18 14:20 Baso # 0.1 K/mm3 (0.0-0.1) 08/10/18 14:20 Seg Neutrophils % 76.4 % (40.0-70.0) H 08/10/18 14:20 Seg Neutrophils # 7.3 K/mm3 (1.8-7.7) 08/10/18 14:20 APTT 43.6 Sec. (24.2-36.6) H 08/10/18 14:20 POC ABG pH 7.483 (7.35-7.45) H 08/10/18 15:06 POC ABG pCO2 38.2 (35-45) 08/10/18 15:06 POC ABG pO2 50 (80-105) L 08/10/18 15:06 POC ABG HCO3 28.6 (22-26 mml/L) 08/10/18 15:06 POC ABG Total CO2 30 (23-27mmol/L) 08/10/18 15:06 POC ABG O2 Sat 88 08/10/18 15:06 POC ABG Base Excess 5 ((-2) - (+3)mmol/L) 08/10/18 15:06 21 % 08/10/18 15:06 Sodium 144 mmol/L (137-145) 08/10/18 14:20 Potassium 2.9 mmol/L (3.6-5.0) L* 08/10/18 14:20 Chloride 102.6 mmol/L (98-107) 08/10/18 14:20 Carbon Dioxide 28 mmol/L (22-30) 08/10/18 14:20 16 mmol/L 08/10/18 14:20 BUN 9 mg/dL (7-17) 08/10/18 14:20 0.9 mg/dL (0.7-1.2) 08/10/18 14:20 Estimated GFR > 60 ml/min 08/10/18 14:20 10 % 08/10/18 14:20 Glucose 131 mg/dL (65-100) H 08/10/18 14:20 Lactic Acid 1.30 mmol/L (0.7-2.0) 08/10/18 14:20 Calcium 8.5 mg/dL (8.4-10.2) 08/10/18 14:20 Magnesium 2.00 mg/dL (1.7-2.3) 08/10/18 14:20 1.00 mg/dL (0.1-1.2) 08/10/18 14:20 AST 16 units/L (5-40) 08/10/18 14:20 ALT 7 units/L (7-56) 08/10/18 14:20 87 units/L (35-129) 08/10/18 14:20 78 units/L (30-135) 08/10/18 14:20 < 0.010 ng/mL (0.00-0.029) 08/10/18 14:20 NT-Pro-B Natriuret Pep 571.8 pg/mL (0-900) 08/10/18 14:30 6.5 g/dL (6.3-8.2) 08/10/18 14:20 3.0 g/dL (3.9-5) L 08/10/18 14:20 0.9 % 08/10/18 14:20 TSH 1.380 mlU/mL (0.270-4.200) 08/10/18 14:20 Yellow (Yellow) 08/10/18 14:49 Slightly-cloudy (Clear) 08/10/18 14:49 7.0 (5.0-7.0) 08/10/18 14:49 Ur Specific [place] 1.016 (1.003-1.030) 08/10/18 14:49 <15 mg/dl mg/dL (Negative) 08/10/18 14:49 Neg mg/dL (Negative) 08/10/18 14:49 Neg mg/dL (Negative) 08/10/18 14:49 Sm (Negative) 08/10/18 14:49 Pos (Negative) 08/10/18 14:49 Neg (Negative) 08/10/18 14:49 < 2.0 mg/dL (<2.0) 08/10/18 14:49 Ur Leukocyte Esterase Tr (Negative) 08/10/18 14:49 19.0 /HPF (0.0-6.0) H 08/10/18 14:49 4.0 /HPF (0.0-6.0) 08/10/18 14:49 U Epithel Cells (Auto) 3.0 /HPF (0-13.0) 08/10/18 14:49 3+ /HPF (Negative) 08/10/18 14:49 Few /HPF 08/10/18 14:49 Short CBC 08/10/18 Range/Units 14:20 WBC 9.5 (4.5-11.0) K/mm3 Hgb 13.3 (10.1-14.3) gm/dl Hct 38.5 (30.3-42.9) % Plt Count 375 (140-440) K/mm3 BMP 08/10/18 14:20 Sodium 144 Potassium 2.9 L* Chloride 102.6 Carbon Dioxide 28 BUN 9 Creatinine 0.9 Glucose 131 H Calcium 8.5 Cardiac Enzymes 08/10/18 08/10/18 Range/Units 14:20 14:20 Total Creatine Kinase 78 (30-135) units/L Troponin T < 0.010 (0.00-0.029) ng/mL Liver Function 08/10/18 Range/Units 14:20 Total Bilirubin 1.00 (0.1-1.2) mg/dL AST 16 (5-40) units/L ALT 7 (7-56) units/L Alkaline Phosphatase 87 (35-129) units/L Albumin 3.0 L (3.9-5) g/dL Urine 08/10/18 Range/Units 14:49 Urine Color Yellow (Yellow) Urine pH 7.0 (5.0-7.0) Ur Specific [place] 1.016 (1.003-1.030) Urine Protein <15 mg/dl (Negative) mg/dL Urine Glucose (UA) Neg (Negative) mg/dL - Imaging and Cardiology EKG: report reviewed Chest x-ray: report reviewed CT scan - chest: report reviewed CT Scan - head: report reviewed CT scan - pelvis: report reviewed Imaging and Cardiology: CXR IMPRESSION: 1. No acute findings. 2. Probable chronic interstitial fibrosis. Pelvic x-rays FINDINGS: No fracture or dislocation is seen within the pelvis or either hip. Moderate left and advanced right hip degenerative arthrosis is present. Chest CT IMPRESSION: Patchy infiltrate in the right lung as described. Correlate for pneumonia. Borderline to mild cardiomegaly. Degenerative changes in the spine. Head CT and C-spine CT IMPRESSION: No acute abnormality. Volume loss and chronic ischemic changes in the white matter. CT CERVICAL SPINE WITHOUT CONTRAST INDICATION: Acute neck pain, trauma, fall today. FINDINGS: Alignment: Spinal alignment is normal. Bones: There is no acute osseous abnormality. Mild multilevel discogenic DJD is present. Minimal diffuse facet arthropathy is appreciated. Mild osteopenia is noted. Soft tissues: No acute or significant incidental soft tissue abnormality IMPRESSION: No acute abnormality. Mild multilevel cervical spondylosis. Mild osteopenia. Assessment and Plan Advance Directives: Yes (full code) VTE prophylaxis?: Chemical Plan of care discussed with patient/family: Yes - Patient Problems (1) Acute respiratory failure with hypoxemia Current Visit: Yes Status: Acute Plan to address problem: Patient is hypoxic Patient may be having underlying pulmonary fibrosis Pulmonary consultation requested Continue high flow oxygen and BiPAP if necessary Duonebs [id number] IV Solu-Medrol IV Rocephin and Zithromax Patient is allergic to quinolones and cefaclor (2) Hypokalemia Current Visit: Yes Status: Acute Plan to address problem: Etiology unclear Patient not on any diuretics Potassium being supplemented by intravenous and orally Check potassium level (3) Interstitial lung disease Current Visit: Yes Status: Chronic Plan to address problem: Highly possible We will defer to pulmonary consult (4) Right lower lobe pneumonia Current Visit: Yes Status: Acute Qualifiers: Aspiration pneumonia type: unspecified Plan to address problem: Patchy infiltrate on the CT chest IV antibiotics for now Aspiration unlikely (5) Type 2 diabetes mellitus Current Visit: Yes Status: Chronic Qualifiers: Diabetes mellitus director long term care insulin use: without half-way use Plan to address problem: Check hemoglobin A1c Continue metformin Insulin coverage for now (6) Glaucoma Current Visit: Yes Status: Chronic Qualifiers: Glaucoma type: unspecified Laterality: bilateral Qualified Code(s): H40.9 - Unspecified glaucoma Plan to address problem: Continue latanoprost eyedrops (7) Hypothyroidism Current Visit: Yes Status: Chronic Qualifiers: Hypothyroidism type: acquired Qualified Code(s): E03.9 - Hypothyroidism, unspecified Plan to address problem: Check TSH Continue Synthroid (8) Urinary tract infection Current Visit: Yes Status: Acute Qualifiers: Indwelling urinary catheter type: unspecified Encounter type: initial encounter Plan to address problem: Patient on ceftriaxone for pneumonia which should cover the urinary tract infection (9) Hypertension Current Visit: Yes Status: Chronic Qualifiers: Hypertension type: essential hypertension Qualified Code(s): I10 - Essential (primary) hypertension Plan to address problem: Hypertension well controlled Continue antihypertensives Monitor blood pressure every shift (10) Fall Current Visit: Yes Status: Acute Qualifiers: Encounter type: initial encounter Qualified Code(s): W19.XXXA - Unspecified fall, initial encounter Plan to address problem: Probably secondary to hypokalemia and debility Physical therapy consulted (11) Advanced care planning/counseling discussion Current Visit: Yes Status: Acute Plan to address problem: Discussed No decision made (12) DVT prophylaxis Current Visit: Yes Status: Acute Plan to address problem: Patient on Lovenox and GI prophylaxis
[2018-08-10] MEDS: ZITHROMAX 500 MG in NACL 0.9% 250ML 250 ML IV SCH (20:55)
[2018-08-10] MEDS: DUONEB *Not for PRN Use IH SCH (21:04)
[2018-08-10] MEDS: PEPCID IV SCH (21:34)
[2018-08-10] MEDS: SOLU-Medrol IV SCH ×3 (21:34→21:41)
[2018-08-10] MEDS: LOVENOX SUB-Q SCH (21:34)
[2018-08-10] MEDS: COZAAR PO SCH (21:35)
[2018-08-10] MEDS: GLUCOPHAGE XR PO SCH (21:35)
[2018-08-10] MEDS: SYNTHROID PO SCH ×2 (21:35)
[2018-08-10] MEDS: K-DUR PO SCH (21:35)
[2018-08-10] MEDS: ROCEPHIN/NS 2 GM/100 ML 2 GM/100 ML BAG IV SCH (21:36)
[2018-08-10] MEDS: LATANOPROST 0.005% OU SCH (21:36)
[2018-08-10] MEDS: SODIUM CHLORIDE FLUSH SYRINGE 10 ML IV SCH (21:36)
[2018-08-10] MEDS: HumaLOG SUB-Q SCH (21:42)
[2018-08-11] MEDS: KCL 10MEQ/100ML 10 MEQ/100 ML BAG IV SCH (00:08)
--- NOTE | 2018-08-11 05:02 | Consultation ---
History of Present Illness Consult date: 08/11/18 Requesting physician: JESSY CRUZ Reason for consult: pneumonia, other (Acute Hypoxemic Resp Failure) History of present illness: PULMONARY CONSULT NOTE (Full dictation # [id number]) Please see dictated notes for full details Medications and Allergies Allergies Allergy/AdvReac Type Severity Reaction Status Date / Time cefaclor [From Ceclor] Allergy Hives Verified 06/19/14 11:51 ciprofloxacin [From Cipro] Allergy Unknown Verified 08/10/18 16:56 levofloxacin [From Levaquin] Allergy Unknown Verified 08/10/18 16:56 Sulfa (Sulfonamide Allergy Unknown Verified 08/10/18 16:56 Antibiotics) lisinopril AdvReac Unknown Verified 08/10/18 16:56 usinadol Allergy Unknown Uncoded 08/10/18 16:56 BLOOD PRESSURE MED AdvReac Itching Uncoded 06/19/14 11:51 Home Medications Medication Instructions Recorded Confirmed Last Taken Type Latanoprost 1 drop OU HS 06/19/14 08/10/18 06/21/14 History Potassium Chloride [K-Tab ER] 10 meq PO DAILY 06/19/14 08/10/18 06/21/14 History Levothyroxine Sodium [Synthroid] 137 mcg PO QDAY 08/10/18 08/10/18 Unknown History Telmisartan 40 mg PO QDAY 08/10/18 08/10/18 Unknown History metFORMIN XR [Glucophage XR] 500 mg PO BID 08/10/18 08/10/18 Unknown History Active Meds: Active Medications Acetaminophen (Tylenol) 650 mg PO Q6H PRN PRN Reason: Pain, Mild (1-3) Last Admin: 08/11/18 02:38 Dose: 650 mg Documented by: Acetaminophen (Tylenol) 650 mg PO Q4H PRN PRN Reason: Pain MILD(1-3)/Fever >100.5/BAKER Albuterol (Proventil) 2.5 mg IH Q4HRT PRN PRN Reason: Shortness Of Breath Albuterol/Ipratropium (Duoneb *Not For Prn Use*) 1 ampul IH QIDRT [facility] Last Admin: 08/10/18 21:04 Dose: Not Given Documented by: Enoxaparin Sodium (Lovenox) 40 mg SUB-Q QDAY@2200 [facility] Last Admin: 08/10/18 21:34 Dose: 40 mg Documented by: Famotidine (Pepcid) 20 mg IV BID [facility] Last Admin: 08/10/18 21:34 Dose: 20 mg Documented by: Hydromorphone HCl (Dilaudid) 0.5 mg IV Q3H PRN PRN Reason: Pain , Severe (7-10) Ceftriaxone Sodium (Rocephin/Ns 2 Gm/100 Ml) 2 gm in 100 mls @ 200 mls/hr IV Q24HR [facility]; Protocol Last Admin: 08/10/18 21:36 Dose: 200 mls/hr Documented by: Azithromycin 500 mg/ Sodium (Chloride) 250 mls @ 250 mls/hr IV Q24HR [facility]; Protocol Last Admin: 08/10/18 20:55 Dose: 250 mls/hr Documented by: Ibuprofen (Ibuprofen) 600 mg PO Q6H PRN PRN Reason: Pain, Mild (1-3) Insulin Human Lispro (Humalog) 0 unit SUB-Q ACHS [facility]; Protocol Last Admin: 08/10/18 21:42 Dose: Not Given Documented by: Latanoprost (Latanoprost 0.005%) 1 drops OU HS [facility] Last Admin: 08/10/18 21:36 Dose: 1 drops Documented by: Levothyroxine Sodium (Synthroid) 112 mcg PO DAILY@0600 [facility] Last Admin: 08/10/18 21:35 Dose: 112 mcg Documented by: Levothyroxine Sodium (Synthroid) 25 mcg PO DAILY@0600 [facility] Last Admin: 08/10/18 21:35 Dose: 25 mcg Documented by: Losartan Potassium (Cozaar) 50 mg PO QDAY [facility] Last Admin: 08/10/18 21:35 Dose: 50 mg Documented by: Metformin HCl (Glucophage Xr) 500 mg PO BID [facility] Last Admin: 08/10/18 21:35 Dose: 500 mg Documented by: Methylprednisolone Sodium Succinate (Solu-Medrol) 80 mg IV Q8HR [facility] Last Admin: 08/10/18 21:41 Dose: Not Given Documented by: Ondansetron HCl (Zofran) 4 mg IV Q8H PRN PRN Reason: Nausea And Vomiting Potassium Chloride (K-Dur) 10 meq PO QDAY [facility] Last Admin: 08/10/18 21:35 Dose: 10 meq Documented by: Sodium Chloride (Sodium Chloride Flush Syringe 10 Ml) 10 ml IV BID [facility] Last Admin: 08/10/18 21:36 Dose: 10 ml Documented by: Sodium Chloride (Sodium Chloride Flush Syringe 10 Ml) 10 ml IV PRN PRN PRN Reason: LINE FLUSH Physical Examination Vital signs: Vital Signs Pulse Ox 85 08/10/18 13:57 Results - Laboratory Findings CBC and BMP: 08/11/18 04:09 08/11/18 04:09 ABG POC ABG pH 7.483 (7.35-7.45) H 08/10/18 15:06 POC ABG pCO2 38.2 (35-45) 08/10/18 15:06 POC ABG pO2 50 (80-105) L 08/10/18 15:06 POC ABG HCO3 28.6 (22-26 mml/L) 08/10/18 15:06 POC ABG Total CO2 30 (23-27mmol/L) 08/10/18 15:06 POC ABG O2 Sat 88 08/10/18 15:06 Abnormal lab findings: Abnormal Labs 08/10/18 08/10/18 08/10/18 14:20 14:20 14:20 MCH 33 H MCHC 35 H Lymph % (Auto) 10.5 L [place] % (Auto) 11.0 H Lymph # 1.0 L [place] # 1.1 H Seg Neutrophils % 76.4 H APTT 43.6 H POC ABG pH POC ABG pO2 Potassium 2.9 L* Glucose 131 H POC Glucose Lactic Acid Albumin 3.0 L Urine WBC (Auto) 08/10/18 08/10/18 08/10/18 14:49 15:06 20:41 MCH MCHC Lymph % (Auto) [place] % (Auto) Lymph # [place] # Seg Neutrophils % APTT POC ABG pH 7.483 H POC ABG pO2 50 L Potassium Glucose POC Glucose Lactic Acid 2.20 H* Albumin Urine WBC (Auto) 19.0 H 08/10/18 21:43 MCH MCHC Lymph % (Auto) [place] % (Auto) Lymph # [place] # Seg Neutrophils % APTT POC ABG pH POC ABG pO2 Potassium Glucose POC Glucose 236 H Lactic Acid Albumin Urine WBC (Auto)
[2018-08-11] MEDS: SYNTHROID PO SCH ×2 (05:11)
[2018-08-11] MEDS: SOLU-Medrol IV SCH ×3 (05:16→22:44)
[2018-08-11 05:34] LABS: Hematocrit 37.3 % (30.3-42.9); Hemoglobin 12.9 gm/dl (10.1-14.3); Mean Corpuscular HGB Conc 35 % (30-34); Mean Corpuscular Volume 94 fl (79-97); Platelet Count 376 K/mm3 (140-440); Red Blood Count 3.96 M/mm3 (3.65-5.03); Red Cell Distribution Width 13.9 % (13.2-15.2)
[2018-08-11 05:57] LABS: Alanine Aminotransferase 8 units/L (7-56); Albumin 3.1 g/dL (3.9-5); BUN/Creatinine Ratio 11; Blood Urea Nitrogen 10 mg/dL (7-17); Calcium 8.5 mg/dL (8.4-10.2); Hemolysis Index 0
[2018-08-11 06:33] LABS: Band Neutrophils # (Manual) 0.1 K/mm3; Basophils % (Manual) 0 % (0.0-1.8); Eosinophils % (Manual) 0 % (0.0-4.3); Monocytes % (Manual) 0 % (0.0-7.3); Total Cells Counted 100
[2018-08-11 06:38] LABS: Anisocytosis 1+; Platelet Estimate Consistent w Auto
[2018-08-11] MEDS: HumaLOG SUB-Q SCH ×4 (08:49→23:08)
[2018-08-11] MEDS: DUONEB *Not for PRN Use IH SCH ×4 (09:05→19:49)
[2018-08-11] MEDS: K-DUR PO SCH (10:35)
[2018-08-11] MEDS: PEPCID IV SCH ×2 (10:35→22:44)
[2018-08-11] MEDS: COZAAR PO SCH (10:36)
[2018-08-11] MEDS: ROCEPHIN/NS 2 GM/100 ML 2 GM/100 ML BAG IV SCH (10:36)
[2018-08-11] MEDS: ZITHROMAX 500 MG in NACL 0.9% 250ML 250 ML IV SCH (10:37)
[2018-08-11] MEDS: GLUCOPHAGE XR PO SCH (10:37)
[2018-08-11] MEDS: SODIUM CHLORIDE FLUSH SYRINGE 10 ML IV SCH ×2 (10:37→22:45)
[2018-08-11] MEDS: LASIX IV SCH (14:44)
--- NOTE | 2018-08-11 15:07 | Progress Note ---
Assessment and Plan Assessment and plan: Patient is 82 yo lady with a history of Chronic BLE venous leg stasis with lymphedema, Glaucoma, NIDDM, hypothyroidism, hypertension, COPD who presented to [facility] ED after a mechanical fall at home with inability to get up due to generalized weakness. Brother David and sister Juliana helped with the history. * pCXR IMPRESSION: 1. No acute findings. 2. Probable chronic interstitial fibrosis. * Pelvic x-rays FINDINGS: No fracture or dislocation is seen within the pelvis or either hip. Moderate left and advanced right hip degenerative arthrosis is present. * Chest CT without IMPRESSION: Patchy infiltrate in the right lung as described. Correlate for pneumonia. Borderline to mild cardiomegaly. Degenerative changes in the spine. * Head CT and C-spine CT: IMPRESSION: No acute abnormality. Volume loss and chronic ischemic changes in the white matter. * CT CERVICAL SPINE WITHOUT CONTRAST INDICATION: Acute neck pain, trauma, fall today. FINDINGS: Alignment: Spinal alignment is normal. Bones: There is no acute osseous abnormality. Mild multilevel discogenic DJD is present. Minimal diffuse facet arthropathy is appreciated. Mild osteopenia is noted. Soft tissues: No acute or significant incidental soft tissue abnormality, IMPRESSION: No acute abnormality. Mild multilevel cervical spondylosis. Mild osteopenia. Acute hypoxic respiratory failure: treat with O2 and pneumonia AE COPD: treat with steroids, abx, nebs Hypokalemia: replete and monitor bmp closely ILD suspected: consulted Pulmonology RLL Aspiration pneumonia: treat with abx Type 2 diabetes mellitus: SSI, ada Glaucoma: continue eye drops Hypothyroidism: Continue Synthroid Urinary tract infection: Patient on ceftriaxone for pneumonia which should cover the urinary tract infection Hypertension: Continue antihypertensives, Monitor blood pressure every shift Fall: Probably secondary to underlying illness Physical therapy consulted Advanced care planning/counseling discussion DVT prophylaxis: Patient on Lovenox and GI prophylaxis Elevated D-Dimer==> get CTA chest History Interval history: Patient was seen and examined. Follow-up on current diagnosis of PNA. No overnight events reported to me. Patient denies any chest pain, shortness breath, nausea/vomiting or severe headaches. Imaging, nursing note, chart, labs and old chart reviewed. Discussed with patient. Hospitalist Physical - Physical exam Narrative exam: Gen: WDWN, NAD, Awake, Alert, Orientated HEENT: NCAT, EOMI, PERRL, OP Clear Neck: supple, no adenopathy, no thyromegaly, no JVD CVS/Heart: RRR, normal S1S2, pulses present bilaterally Chest/Lungs: diminished bs, rhonchi bilaterally, coarse bs on rll, Symmetrical chest expansion, good air entry bilaterally GI/Abdomen: soft, NTND, good bowel sounds, no guarding or rebound /Bladder: no suprapubic tenderness, no CVA or paraspinal tenderness Extermity/Skin: chronic appearing circumferential nontender erythema noted on the bilateral lower extremity is. This is likely venous stasis. Also has encrusted lesions, chronic appearing, with no tenderness MSK: FROM x 4 Neuro: CN 2-12 grossly intact, no new focal deficits Psych: calm - Constitutional Vitals: Temp Pulse Resp BP Pulse Ox 97.7 F 78 20 156/82 94 08/11/18 09:45 08/11/18 09:45 08/11/18 09:45 08/11/18 09:45 08/11/18 09:10 General appearance: Present: well-nourished. Absent: severe distress Results - Labs CBC & Chem 7: 08/11/18 04:09 08/11/18 04:09 Labs: Laboratory Last Values WBC 8.4 K/mm3 (4.5-11.0) 08/11/18 04:09 RBC 3.96 M/mm3 (3.65-5.03) 08/11/18 04:09 Hgb 12.9 gm/dl (10.1-14.3) 08/11/18 04:09 Hct 37.3 % (30.3-42.9) 08/11/18 04:09 MCV 94 fl (79-97) 08/11/18 04:09 MCH 33 pg (28-32) H 08/11/18 04:09 MCHC 35 % (30-34) H 08/11/18 04:09 RDW 13.9 % (13.2-15.2) 08/11/18 04:09 Plt Count 376 K/mm3 (140-440) 08/11/18 04:09 Lymph % (Auto) 10.5 % (13.4-35.0) L 08/10/18 14:20 [place] % (Auto) 11.0 % (0.0-7.3) H 08/10/18 14:20 Eos % (Auto) 1.4 % (0.0-4.3) 08/10/18 14:20 Baso % (Auto) 0.7 % (0.0-1.8) 08/10/18 14:20 Lymph # 1.0 K/mm3 (1.2-5.4) L 08/10/18 14:20 [place] # 1.1 K/mm3 (0.0-0.8) H 08/10/18 14:20 Eos # 0.1 K/mm3 (0.0-0.4) 08/10/18 14:20 Baso # 0.1 K/mm3 (0.0-0.1) 08/10/18 14:20 Add Manual Diff Complete 08/11/18 04:09 Total Counted 100 08/11/18 04:09 Seg Neutrophils % 76.4 % (40.0-70.0) H 08/10/18 14:20 Seg Neuts % (Manual) 95.0 % (40.0-70.0) H 08/11/18 04:09 1.0 % 08/11/18 04:09 3.0 % (13.4-35.0) L 08/11/18 04:09 Reactive Lymphs % (Man) 0 % 08/11/18 04:09 0 % (0.0-7.3) 08/11/18 04:09 0 % (0.0-4.3) 08/11/18 04:09 0 % (0.0-1.8) 08/11/18 04:09 1.0 % 08/11/18 04:09 0 % 08/11/18 04:09 0 % 08/11/18 04:09 0 % 08/11/18 04:09 Nucleated RBC % Not Reportable 08/11/18 04:09 Seg Neutrophils # 7.3 K/mm3 (1.8-7.7) 08/10/18 14:20 Seg Neutrophils # Man 8.0 K/mm3 (1.8-7.7) H 08/11/18 04:09 Band Neutrophils # 0.1 K/mm3 08/11/18 04:09 0.3 K/mm3 (1.2-5.4) L 08/11/18 04:09 Abs React Lymphs (Man) 0.0 K/mm3 08/11/18 04:09 0.0 K/mm3 (0.0-0.8) 08/11/18 04:09 0.0 K/mm3 (0.0-0.4) 08/11/18 04:09 0.0 K/mm3 (0.0-0.1) 08/11/18 04:09 0.1 K/mm3 08/11/18 04:09 0.0 K/mm3 08/11/18 04:09 0.0 K/mm3 08/11/18 04:09 Blast Cells # 0.0 K/mm3 08/11/18 04:09 WBC Morphology Not Reportable 08/11/18 04:09 Hypersegmented Neuts Not Reportable 08/11/18 04:09 Hyposegmented Neuts Not Reportable 08/11/18 04:09 Hypogranular Neuts Not Reportable 08/11/18 04:09 Not Reportable 08/11/18 04:09 Not Reportable 08/11/18 04:09 Not Reportable 08/11/18 04:09 Not Reportable 08/11/18 04:09 Not Reportable 08/11/18 04:09 Not Reportable 08/11/18 04:09 Consistent w auto 08/11/18 04:09 Not Reportable 08/11/18 04:09 Plt Clumps, EDTA Not Reportable 08/11/18 04:09 Not Reportable 08/11/18 04:09 Not Reportable 08/11/18 04:09 Not Reportable 08/11/18 04:09 Plt Morphology Comment Not Reportable 08/11/18 04:09 RBC Morphology Not Reportable 08/11/18 04:09 Dimorphic RBCs Not Reportable 08/11/18 04:09 Not Reportable 08/11/18 04:09 Not Reportable 08/11/18 04:09 Not Reportable 08/11/18 04:09 1+ 08/11/18 04:09 Not Reportable 08/11/18 04:09 Not Reportable 08/11/18 04:09 Not Reportable 08/11/18 04:09 Not Reportable 08/11/18 04:09 Not Reportable 08/11/18 04:09 Not Reportable 08/11/18 04:09 Not Reportable 08/11/18 04:09 Not Reportable 08/11/18 04:09 Not Reportable 08/11/18 04:09 Not Reportable 08/11/18 04:09 Not Reportable 08/11/18 04:09 Not Reportable 08/11/18 04:09 Not Reportable 08/11/18 04:09 Not Reportable 08/11/18 04:09 Not Reportable 08/11/18 04:09 Acanthocytes (Spur) Not Reportable 08/11/18 04:09 Rouleaux Not Reportable 08/11/18 04:09 Not Reportable 08/11/18 04:09 Not Reportable 08/11/18 04:09 Not Reportable 08/11/18 04:09 Not Reportable 08/11/18 04:09 Hem Pathologist Commnt No 08/11/18 04:09 APTT 43.6 Sec. (24.2-36.6) H 08/10/18 14:20 624.38 ng/mlDDU (0-234) H 08/11/18 13:08 POC ABG pH 7.483 (7.35-7.45) H 08/10/18 15:06 POC ABG pCO2 38.2 (35-45) 08/10/18 15:06 POC ABG pO2 50 (80-105) L 08/10/18 15:06 POC ABG HCO3 28.6 (22-26 mml/L) 08/10/18 15:06 POC ABG Total CO2 30 (23-27mmol/L) 08/10/18 15:06 POC ABG O2 Sat 88 08/10/18 15:06 POC ABG Base Excess 5 ((-2) - (+3)mmol/L) 08/10/18 15:06 21 % 08/10/18 15:06 Sodium 146 mmol/L (137-145) H 08/11/18 04:09 Potassium 3.9 mmol/L (3.6-5.0) D 08/11/18 04:09 Chloride 107.9 mmol/L (98-107) H 08/11/18 04:09 Carbon Dioxide 25 mmol/L (22-30) 08/11/18 04:09 17 mmol/L 08/11/18 04:09 BUN 10 mg/dL (7-17) 08/11/18 04:09 0.9 mg/dL (0.7-1.2) 08/11/18 04:09 Estimated GFR > 60 ml/min 08/11/18 04:09 11 % 08/11/18 04:09 Glucose 152 mg/dL (65-100) H 08/11/18 04:09 POC Glucose 210 (70-105) H 08/11/18 11:46 5.9 % (4-6) 08/10/18 20:41 Lactic Acid 2.80 mmol/L (0.7-2.0) H* 08/11/18 11:32 Calcium 8.5 mg/dL (8.4-10.2) 08/11/18 04:09 Magnesium 2.00 mg/dL (1.7-2.3) 08/10/18 14:20 0.60 mg/dL (0.1-1.2) 08/11/18 04:09 AST 17 units/L (5-40) 08/11/18 04:09 ALT 8 units/L (7-56) 08/11/18 04:09 88 units/L (35-129) 08/11/18 04:09 78 units/L (30-135) 08/10/18 14:20 < 0.010 ng/mL (0.00-0.029) 08/10/18 14:20 NT-Pro-B Natriuret Pep 571.8 pg/mL (0-900) 08/10/18 14:30 5.6 g/dL (6.3-8.2) L 08/11/18 04:09 3.1 g/dL (3.9-5) L 08/11/18 04:09 1.2 % 08/11/18 04:09 TSH 1.380 mlU/mL (0.270-4.200) 08/10/18 14:20 Yellow (Yellow) 08/10/18 14:49 Slightly-cloudy (Clear) 08/10/18 14:49 7.0 (5.0-7.0) 08/10/18 14:49 Ur Specific [place] 1.016 (1.003-1.030) 08/10/18 14:49 <15 mg/dl mg/dL (Negative) 08/10/18 14:49 Neg mg/dL (Negative) 08/10/18 14:49 Neg mg/dL (Negative) 08/10/18 14:49 Sm (Negative) 08/10/18 14:49 Pos (Negative) 08/10/18 14:49 Neg (Negative) 08/10/18 14:49 < 2.0 mg/dL (<2.0) 08/10/18 14:49 Ur Leukocyte Esterase Tr (Negative) 08/10/18 14:49 19.0 /HPF (0.0-6.0) H 08/10/18 14:49 4.0 /HPF (0.0-6.0) 08/10/18 14:49 U Epithel Cells (Auto) 3.0 /HPF (0-13.0) 08/10/18 14:49 3+ /HPF (Negative) 08/10/18 14:49 Few /HPF 08/10/18 14:49 Active Medications - Current Medications Current Medications: Generic Name Dose Route Start Last Admin Trade Name Freq PRN Reason Stop Dose Admin Acetaminophen 650 mg 08/10/18 17:42 Tylenol PO Q4H PRN Pain MILD(1-3)/Fever >100.5/BAKER Albuterol 2.5 mg 08/10/18 17:41 Proventil IH Q4HRT PRN Shortness Of Breath Albuterol/Ipratropium 1 ampul 08/10/18 20:00 08/11/18 09:05 Duoneb *Not For Prn Use* IH 1 ampul QIDRT LOVE Administration Arformoterol Tartrate 15 mcg 08/11/18 20:00 Brovana Nebu Q12HRT LOVE Budesonide 0.5 mg 08/11/18 20:00 Pulmicort IH Q12HRT LOVE Enoxaparin Sodium 40 mg 08/10/18 22:00 08/10/18 21:34 Lovenox SUB-Q 40 mg QDAY@2200 LOVE Administration Famotidine 20 mg 08/10/18 22:00 08/11/18 10:35 Pepcid IV 20 mg BID LOVE Administration Furosemide 20 mg 08/11/18 13:00 08/11/18 14:44 Lasix IV 08/12/18 10:01 20 mg QDAY LOVE Administration Hydromorphone HCl 0.5 mg 08/10/18 17:42 Dilaudid IV Q3H PRN Pain , Severe (7-10) Ceftriaxone Sodium 2 gm in 100 mls @ 200 mls/hr 08/10/18 18:00 08/11/18 10:36 Rocephin/Ns 2 Gm/100 Ml IV 200 mls/hr Q24HR LOVE Administration Protocol Azithromycin 500 mg/ Sodium 250 mls @ 250 mls/hr 08/10/18 18:00 08/11/18 10:37 Chloride IV 250 mls/hr Q24HR LOVE Administration Protocol Ibuprofen 600 mg 08/10/18 17:42 Ibuprofen PO Q6H PRN Pain, Mild (1-3) Insulin Human Lispro 0 unit 08/10/18 22:00 08/11/18 14:31 Humalog SUB-Q Not Given ACHS LOVE Protocol Latanoprost 1 drops 08/10/18 22:00 08/10/18 21:36 Latanoprost 0.005% OU 1 drops HS LOVE Administration Levothyroxine Sodium 112 mcg 08/10/18 18:00 08/11/18 05:11 Synthroid PO 112 mcg DAILY@0600 LOVE Administration Levothyroxine Sodium 25 mcg 08/10/18 18:00 08/11/18 05:11 Synthroid PO 25 mcg DAILY@0600 LOVE Administration Losartan Potassium 50 mg 08/10/18 18:00 08/11/18 10:36 Cozaar PO 50 mg QDAY LOVE Administration Metformin HCl 500 mg 08/10/18 22:00 08/11/18 10:37 Glucophage Xr PO 500 mg BID LOVE Administration Methylprednisolone Sodium Succinate 80 mg 08/10/18 18:00 08/11/18 14:44 Solu-Medrol IV 80 mg Q8HR LOVE Administration Ondansetron HCl 4 mg 08/10/18 17:42 Zofran IV Q8H PRN Nausea And Vomiting Potassium Chloride 10 meq 08/10/18 18:00 08/11/18 10:35 K-Dur PO 10 meq QDAY LOVE Administration Sodium Chloride 10 ml 08/10/18 22:00 08/11/18 10:37 Sodium Chloride Flush Syringe 10 Ml IV 10 ml BID LOVE Administration Sodium Chloride 10 ml 08/10/18 17:42 Sodium Chloride Flush Syringe 10 Ml IV PRN PRN LINE FLUSH
--- NOTE | 2018-08-11 16:31 | Vascular Lab Report ---
DUPLEX DOPPLER BILATERAL LOWER EXTREMITY VEINS INDICATION: leg swelling and SOB FINDINGS: There is no thrombus within the deep veins of either lower extremity from the common femoral to the c correction veins. There is normal compression and augmentation on spectral analysis. IMPRESSION: No sonographic evidence for DVT in either lower extremity. Signer Name: Todd Ann MD Signed: 08/11/2018 4:27 PM Workstation Name: [id number]
[2018-08-11] MEDS: PULMICORT IH SCH (19:44)
[2018-08-11] MEDS: BROVANA NEBU IH SCH (19:44)
[2018-08-11] MEDS ORDERED: NACL 0.9% 1000 ML 1,000 ML IV SCH (21:00)
[2018-08-11] MEDS: LATANOPROST 0.005% OU SCH (22:44)
[2018-08-11] MEDS: LOVENOX SUB-Q SCH (22:45)
--- NOTE | 2018-08-11 23:34 | Consultation ---
CONSULTING PHYSICIAN: Dr. Richardson. REASON FOR CONSULTATION: Acute respiratory failure. CHIEF COMPLAINT AND HISTORY OF PRESENT ILLNESS: The patient is a pleasant 82-year-old female with past medical history of perhaps most significant amongst other things for a 10+ pack year tobacco smoking history, but quit smoking over the past few years, but also a history of breast cancer that was treated with radiation therapy, right breast cancer about 6 years ago according to the patient and family in the room, who according to her sister has really been having trouble with shortness of breath, dyspnea on exertion, but she just never could get her to come to the hospital. On the day of presentation, she stated that she was walking around in the dark apartment and she fell down. She denies loss of consciousness. She denies prior headaches. She denies prior focal weakness or any neurological type symptoms. She fell and she ultimately got herself up according to her, although the records say she could not get up. She denied any pain anywhere, but she ended up in the hospital. As part of the evaluation, she was found to be hypoxemic and amongst other things, essentially with an element of failure to thrive. We are asked to assist with management. When I stopped by to see her, she was sitting up in a chair. She was on supplemental oxygen off about 3 liters nasal cannula with O2 sats around 95%. She denied any chest pain. She admitted to chronic phlegm production and in particular in the preceding days to her presentation, she denies any gross or streaky hemoptysis. It has really been clear phlegm according to her. She denies any known history of congestive heart failure, never used any diuretics. She has chronic bilateral lower extremity edema that has been going on for a while according to her. She denied any sick contacts. She denied any prodromal flu type symptoms. She denies any rash. She denied any sore throat. She denied any diarrhea. She denied any blood loss that she could notice, denied melena. Denies hematochezia. Denied hematemesis. This really is as much of the history of presentation as I have. PAST MEDICAL HISTORY: Obesity, diabetes, and breast cancer. PAST SURGICAL HISTORY: She has had a right lumpectomy. MEDICATIONS: She was on at the time I stopped by to see were reviewed. Pertinent medications include the following: Tylenol 650 mg p.o. q. 4 hours p.r.n. mild pain or fevers, DuoNeb nebulizer treatments q.i.d. p.r.n., albuterol 2.5 mg nebulized q. 4 hours, azithromycin 500 mg IV daily, Rocephin 2 g IV daily, Lovenox 40 mg subcutaneous daily, Pepcid 20 mg IV b.i.d., Dilaudid 0.5 mg IV q. 3 hours p.r.n. severe pain, ibuprofen 600 mg p.o. q. 6 hours p.r.n. mild pain, insulin via sliding scale, latanoprost 0.005% eye drops to both eyes, Levoxyl 112 mcg p.o. daily as well as 25 mcg p.o. daily for a total of 137 mcg p.o. daily, Cozaar 50 mg p.o. daily, metformin 500 mg p.o. b.i.d., Solu-Medrol 80 mg IV q. 8 hours scheduled, Zofran 4 mg IV q. 8 hours p.r.n. nausea and vomiting, potassium chloride 10 mEq p.o. daily. ALLERGIES: CEFACLOR, CIPROFLOXACIN, LEVOFLOXACIN. Nature of this allergy is unknown. DIET: Obese lady. Denies acute weight loss or gain in the preceding few weeks to months. FAMILY AND SOCIAL HISTORY: Lives in the community, has a 10+ pack year tobacco smoking history, quit smoking over 5 years ago. Denies alcohol, illicit drug use or abuse. Family history is otherwise noncontributory. REVIEW OF SYSTEMS: She did have loss of consciousness/syncopal episode. Denied gross hematochezia. Denies any new onset focal weakness. Denies any new onset seizures. She denies any new onset numbness. She denies any polydipsia or polyuria. Denies heat or cold intolerance. She admits to nonrestorative sleep. She is not sure if she snores at night. She denied any new rash on her body. Complete 13-system review of systems obtained. Pertinent positives and/or negatives as in body of history above, otherwise they are noncontributory. PHYSICAL EXAMINATION: VITAL SIGNS: On examination at presentation, she had a low-grade fever, temperature 99.3 degrees Fahrenheit, respiratory rate initially was 0/10, pulse 84, blood pressure 157/44, O2 sats were 90%, inspired oxygen concentration at that time was not recorded. When I saw her, she was 95% on 3 liters nasal cannula. GENERAL: Elderly looking obese female, normocephalic atraumatic, talking to me in slightly interrupted sentences with mildly increased respiratory effort at rest. HEAD, EYES, EARS, NOSE AND THROAT: She is anicteric. No conjunctival erythema. Oropharynx is moist, is a Mallampati #3 oropharynx. No gross jugular venous distention, no thyromegaly. Grossly, no palpable lymph nodes in the supraclavicular, submandibular, or axillary lymph node chains. LUNGS: Auscultation of both lung ortiz, diminished bilateral breath sounds. Inspiratory bilateral rales in the bases. No wheezing. HEART: Heart sounds 1 and 2 are heard. Regular rate and rhythm at time of my evaluation without overt rubs or murmurs. ABDOMEN: Soft, full, bowel sounds are positive, nontender. No palpable hepatosplenomegaly. EXTREMITIES: Without overt digital clubbing, no cyanosis. She has 1-2+ bipedal pedal edema, no significant digital clubbing or cyanosis. Pedal pulses are palpable bilaterally 2+. NEUROLOGIC: Pupils are equal, round, about 4 mm, reactive to light. Extraocular muscle movements are intact. She moves all 4 extremities spontaneously. The skin is of poor turgor. She has stasis dermatitis type rash to both lower extremities, the legs. No overt cellulitis or rash. PSYCHIATRY: Mood was normal. Affect was appropriate. LABORATORY DATA: From my review are as follows: Admission white cell count 9500, hemoglobin 13.3, hematocrit 38.5, platelet count was 375. No manual differential. No band forms. Arterial blood gas showed a pH of 7.48, pCO2 of 38, and pO2 of 50 that was on room air. Serum sodium was 144 at presentation. Potassium was 2.9, chloride 103, bicarbonate 28, BUN 9, creatinine 0.9, glucose 131. Lactic acid level was within normal limits at initial presentation, it did go as high as 2.2, is back to normal range. Liver function tests essentially within normal limits. Albumin was low at 3.1. TSH within normal limits. Urinalysis positive for nitrites as well as leukocyte esterase, white cells 19 per high power field. Urine bacteria 3+. Urine culture growing gram-negative rods at this time. Blood cultures no growth to date. Radiographic studies have been reviewed. I have also reviewed the radiologist's interpretation. A CT scan of the head was done without contrast, no acute abnormality, just chronic changes. CT of the spine showed a normal spinal alignment without acute fracture. X-ray of the pelvis was done and it was negative for any fracture or dislocation in either of the hips. A chest x-ray done at presentation showed hyperinflation with flattening of the right hemidiaphragm, borderline to gross cardiomegaly, increased bilateral interstitial markings consistent with mild interstitial edema, perhaps chronic component to the right lung ortiz, the film appears to be slightly rotated to the right. No gross pneumothorax, no gross bony fracture that I can see and then a CT scan of the chest was done, noncontrast, no significant mediastinal adenopathy that I can see. Bilateral ground glass opacification bullous emphysema, particularly involving the upper lobes, patchy alveolar type infiltrate and areas of likely fibrotic change involving mostly the right lung and no pleural effusions that I can see. ASSESSMENT AND PLAN: 1. Acute hypoxemic respiratory failure. 2. Likely acute chronic obstructive pulmonary disease exacerbation. 3. Probable pulmonary edema. 4. Pneumonia. 5. Pulmonary fibrotic or post-radiation changes in the right lung. 6. Diabetes type 2. 7. Syncope. 8. Hypokalemia at presentation 9. Adult failure to thrive. 10. Urinary tract infection. PLAN: I do feel that there is a chronic component to her that her pulmonary pathology; however, this certainly does seem to be an acute component. I will go ahead and get sputum cultures and send it for cultures and sensitivities. I do feel there may be an element of pulmonary edema also play here with some of the ground glass opacifications that I do see with her BUN and creatinine level. I do feel she would tolerate gentle diuresis. I will go ahead and give her 20 mg of Lasix IV and do that daily for about 3 days, reevaluate. Continue to wean supplemental oxygen to keep O2 sats greater than or equal to about 90%. Continue empiric antibiotics, Rocephin and Zithromax to cover community-acquired pneumonia. A 2D echocardiogram will be in order in this lady. Troponin was within normal limits at presentation as was the BNP, but again, like I said, I would just do a trial of diuretics. I will give her just 20 IV x 1 and reevaluate in the morning. The lactic acidosis is noted. 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 She is appropriately on GI and DVT prophylaxis. Having said that much, D-dimer will be done in this lady, who is relatively sedentary and had a syncopal episode. I would also get bilateral lower extremity Dopplers. If the D-dimer is elevated and the lower extremity Dopplers are negative, I will go ahead and shoot for either a V/Q scan tomorrow post-diuresis today or just get a CT angiogram to better evaluate the mediastinum, especially with her history of breast cancer. She is appropriately like I said on GI and DVT prophylaxis. Flu and pneumonia vaccination will be addressed per protocol. I will also add Brovana and Pulmicort with a tentative diagnosis of chronic COPD. Thank you very much for the consult. We will follow along. We will make further recommendations as picture progresses/becomes clearer. I should say finally she will benefit from Sleep Clinic evaluation. JOB# [id number] IVÁN/LISA WELDON
[2018-08-12] MEDS: SOLU-Medrol IV SCH ×3 (05:16→22:19)
[2018-08-12] MEDS: SYNTHROID PO SCH ×2 (05:18)
[2018-08-12 05:52] LABS: Hematocrit 36.9 % (30.3-42.9); Hemoglobin 12.6 gm/dl (10.1-14.3); Mean Corpuscular HGB Conc 34 % (30-34); Mean Corpuscular Volume 95 fl (79-97); Platelet Count 403 K/mm3 (140-440); Red Cell Distribution Width 13.9 % (13.2-15.2)
[2018-08-12 06:16] LABS: BUN/Creatinine Ratio 18; Blood Urea Nitrogen 16 mg/dL (7-17); Calcium 9.1 mg/dL (8.4-10.2); Hemolysis Index 2
--- NOTE | 2018-08-12 08:09 | Progress Note ---
Assessment and Plan Acute hypoxic respiratory failure -differentials include post radiation lung disease, pneumonia, AE-COPD, ILD AE COPD Hypokalemia RLL Aspiration pneumonia Type 2 diabetes mellitus Glaucoma Hypothyroidism Urinary tract infection Hypertension Fall -Reviewed CT chest and CXR, evidence of GGO with small pleural effusions. No pulmonary embolism, the radiographic findings are not consistent with radiation pneumonitis. The echocardiogram shows grade 1 diastolic dysfunction, otherwise preserved EF without documentation of pulmonary HTN. Will recommend to continue with bronchodilators,gentle diuresis as tolerated by renal function and her hemodynamics and a short course of steroids. - Blood pressure control -PT/OT/Mobility -Bronchodilaotrs -Supplemental oxygen to keep O2 sats>90% -Outpatient sleep study -Out patient follow up of imaging post antibiotic therapy and diuresis. If the GGO persist may need further evaluation to r/o metastatic breast disease Subjective Date of service: 08/12/18 Interval history: Patient is 82 yo lady with a history of Chronic BLE venous leg stasis with lymphedema, Glaucoma, NIDDM, hypothyroidism, hypertension, COPD who presented to [facility] ED after a mechanical fall at home with inability to get up due to generalized weakness Patient is seen today for: Pneumonia, Dyspnea, ILD Seen and examined at bedside; 24hour events reviewed; nursing and respiratory care staff consulted; no adverse overnight events reported to me; No acute overnight events, getting ready to get CT scan of the chest. On 3L supplemental oxygen. She denies any chest pain, no fevers or chills, no nausea or vomiting, no jessica rrhea. On going exertional dyspnea Objective - Exam Narrative Exam: Gen: WDWN, NAD, Awake, Alert, Orientated HEENT: NCAT, EOMI, PERRL, OP Clear Neck: supple, no adenopathy, no thyromegaly, no JVD CVS/Heart: RRR, normal S1S2, pulses present bilaterally Chest/Lungs: diminished bs, rhonchi bilaterally, coarse bs on rll, Symmetrical chest expansion, good air entry bilaterally GI/Abdomen: soft, NTND, good bowel sounds, no guarding or rebound /Bladder: no suprapubic tenderness, no CVA or paraspinal tenderness Extermity/Skin: chronic appearing circumferential non tender erythema noted on the bilateral lower extremity This is likely venous stasis. Also has encrusted lesions, chronic appearing, with no tenderness MSK: FROM x 4 Neuro: CN 2-12 grossly intact, no new focal deficits Psych: calm Vital Signs - 12hr 08/11/18 08/12/18 22:00 01:46 Temperature 95.3 F L Pulse Rate 92 H Respiratory 18 18 Rate Blood Pressure 161/80 O2 Sat by Pulse 96 96 Oximetry CBC and BMP: 08/13/18 06:13 08/13/18 06:13 ABG, PT/INR, D-dimer: ABG POC ABG pH 7.483 (7.35-7.45) H 08/10/18 15:06 POC ABG pCO2 38.2 (35-45) 08/10/18 15:06 POC ABG pO2 50 (80-105) L 08/10/18 15:06 POC ABG HCO3 28.6 (22-26 mml/L) 08/10/18 15:06 POC ABG Total CO2 30 (23-27mmol/L) 08/10/18 15:06 POC ABG O2 Sat 88 08/10/18 15:06 PT/INR, D-dimer 624.38 ng/mlDDU (0-234) H 08/11/18 13:08 Abnormal lab findings: Abnormal Labs 08/10/18 08/10/18 08/10/18 14:20 14:20 14:20 WBC MCH 33 H MCHC 35 H Lymph % (Auto) 10.5 L Greene % (Auto) 11.0 H Lymph # 1.0 L Greene # 1.1 H Seg Neutrophils % 76.4 H Seg Neuts % (Manual) Lymphocytes % (Manual) Seg Neutrophils # Man Lymphocytes # (Manual) APTT 43.6 H D-Dimer POC ABG pH POC ABG pO2 Sodium Potassium 2.9 L* Chloride Glucose 131 H POC Glucose Lactic Acid Total Protein Albumin 3.0 L Urine WBC (Auto) 08/10/18 08/10/18 08/10/18 14:49 15:06 20:41 WBC MCH MCHC Lymph % (Auto) Greene % (Auto) Lymph # Greene # Seg Neutrophils % Seg Neuts % (Manual) Lymphocytes % (Manual) Seg Neutrophils # Man Lymphocytes # (Manual) APTT D-Dimer POC ABG pH 7.483 H POC ABG pO2 50 L Sodium Potassium Chloride Glucose POC Glucose Lactic Acid 2.20 H* Total Protein Albumin Urine WBC (Auto) 19.0 H 08/10/18 08/11/18 08/11/18 21:43 04:09 04:09 WBC MCH 33 H MCHC 35 H Lymph % (Auto) Greene % (Auto) Lymph # Greene # Seg Neutrophils % Seg Neuts % (Manual) 95.0 H Lymphocytes % (Manual) 3.0 L Seg Neutrophils # Man 8.0 H Lymphocytes # (Manual) 0.3 L APTT D-Dimer POC ABG pH POC ABG pO2 Sodium Potassium Chloride Glucose POC Glucose 236 H Lactic Acid 2.10 H* Total Protein Albumin Urine WBC (Auto) 08/11/18 08/11/18 08/11/18 04:09 08:11 11:32 WBC MCH MCHC Lymph % (Auto) Greene % (Auto) Lymph # Greene # Seg Neutrophils % Seg Neuts % (Manual) Lymphocytes % (Manual) Seg Neutrophils # Man Lymphocytes # (Manual) APTT D-Dimer POC ABG pH POC ABG pO2 Sodium 146 H Potassium Chloride 107.9 H Glucose 152 H POC Glucose 174 H Lactic Acid 2.80 H* Total Protein 5.6 L Albumin 3.1 L Urine WBC (Auto) 08/11/18 08/11/18 08/11/18 11:46 13:08 15:42 WBC MCH MCHC Lymph % (Auto) Greene % (Auto) Lymph # Greene # Seg Neutrophils % Seg Neuts % (Manual) Lymphocytes % (Manual) Seg Neutrophils # Man Lymphocytes # (Manual) APTT D-Dimer 624.38 H POC ABG pH POC ABG pO2 Sodium Potassium Chloride Glucose POC Glucose 210 H Lactic Acid 4.00 H* Total Protein Albumin Urine WBC (Auto) 08/11/18 08/11/18 08/11/18 16:38 19:34 21:09 WBC MCH MCHC Lymph % (Auto) Greene % (Auto) Lymph # Greene # Seg Neutrophils % Seg Neuts % (Manual) Lymphocytes % (Manual) Seg Neutrophils # Man Lymphocytes # (Manual) APTT D-Dimer POC ABG pH POC ABG pO2 Sodium Potassium Chloride Glucose POC Glucose 213 H 270 H Lactic Acid 4.70 H* Total Protein Albumin Urine WBC (Auto) 08/11/18 08/11/18 08/12/18 21:56 23:41 05:29 WBC 15.3 H MCH MCHC Lymph % (Auto) Greene % (Auto) Lymph # Greene # Seg Neutrophils % Seg Neuts % (Manual) Lymphocytes % (Manual) Seg Neutrophils # Man Lymphocytes # (Manual) APTT D-Dimer POC ABG pH POC ABG pO2 Sodium Potassium Chloride Glucose POC Glucose Lactic Acid 5.20 H* 4.40 H* Total Protein Albumin Urine WBC (Auto) 08/12/18 08/12/18 05:29 05:29 WBC MCH MCHC Lymph % (Auto) Greene % (Auto) Lymph # Greene # Seg Neutrophils % Seg Neuts % (Manual) Lymphocytes % (Manual) Seg Neutrophils # Man Lymphocytes # (Manual) APTT D-Dimer POC ABG pH POC ABG pO2 Sodium Potassium 3.3 L Chloride Glucose 178 H POC Glucose Lactic Acid 2.40 H* Total Protein Albumin Urine WBC (Auto) Chest x-ray: image reviewed CT scan - chest: image reviewed Allied health notes reviewed: RT
[2018-08-12] MEDS: HumaLOG SUB-Q SCH ×4 (08:40→22:19)
[2018-08-12] MEDS: PULMICORT IH SCH ×2 (09:41→20:33)
[2018-08-12] MEDS: BROVANA NEBU IH SCH ×2 (09:41→20:33)
[2018-08-12] MEDS: DUONEB *Not for PRN Use IH SCH ×3 (09:41→20:36)
--- NOTE | 2018-08-12 10:05 | Cat Scan Report ---
CTA of the chest with 3D Reconstruction Indication: ,hypoxic rule in PE Technique: TECHNIQUE: Axial CT images were obtained through the chest after injection of [ ] IV contrast. 3 petey ne MIP reconstructions were produced. All CT scans at this location are performed using CT dose reduc tion for ALARA by means of automated exposure control. COMPARISON: CT scan dated 08/10/2018 Automatic exposure control was utilized in an attempt to reduce radiation dose. Findings: Pulmonary arteries: The main pulmonary artery and right and left pulmonary artery branches fill satis factorily with contrast. No pulmonary embolus is seen. Lungs: There is diffuse groundglass opacity appears unchanged. There are patchy bilateral airspace op acities similar to the prior study. Mediastinum: Unchanged Aorta: Normal in diameter. No dissection seen within limits of this exam. There is a very small right pleural effusion. Impression: No pulmonary embolus is seen There is a very small right pleural effusion. Lungs appear similar to the recent chest CT There is some narrowing of the trachea on today's exam suggesting tracheomalacia. Signer Name: Sang Connors MD Signed: 08/12/2018 10:01 AM Workstation Name: [id number]
[2018-08-12] MEDS: ZITHROMAX 500 MG in NACL 0.9% 250ML 250 ML IV SCH (10:45)
[2018-08-12] MEDS: ROCEPHIN/NS 2 GM/100 ML 2 GM/100 ML BAG IV SCH (10:56)
[2018-08-12] MEDS: SODIUM CHLORIDE FLUSH SYRINGE 10 ML IV SCH ×2 (10:57→22:19)
[2018-08-12] MEDS: PEPCID IV SCH ×2 (11:02→22:18)
[2018-08-12] MEDS: K-DUR PO SCH (11:02)
[2018-08-12] MEDS: COZAAR PO SCH (11:26)
[2018-08-12] MEDS: LASIX IV SCH (11:26)
[2018-08-12] MEDS ORDERED: POTASSIUM CHLORIDE PO ONE ×2 (12:16→15:12)
--- NOTE | 2018-08-12 12:16 | Progress Note ---
Assessment and Plan Assessment and plan: Patient is 82 yo lady with a history of Chronic BLE venous leg stasis with lymphedema, Glaucoma, NIDDM, hypothyroidism, hypertension, COPD who presented to [facility] ED after a mechanical fall at home with inability to get up due to generalized weakness. Brother David and sister Juliana helped with the history. * pCXR IMPRESSION: 1. No acute findings. 2. Probable chronic interstitial fibrosis. * Pelvic x-rays FINDINGS: No fracture or dislocation is seen within the pelvis or either hip. Moderate left and advanced right hip degenerative arthrosis is present. * Chest CT without IMPRESSION: Patchy infiltrate in the right lung as described. Correlate for pneumonia. Borderline to mild cardiomegaly. Degenerative changes in the spine. * Head CT and C-spine CT: IMPRESSION: No acute abnormality. Volume loss and chronic ischemic changes in the white matter. * CT CERVICAL SPINE WITHOUT CONTRAST INDICATION: Acute neck pain, trauma, fall today. FINDINGS: Alignment: Spinal alignment is normal. Bones: There is no acute osseous abnormality. Mild multilevel discogenic DJD is present. Minimal diffuse facet arthropathy is appreciated. Mild osteopenia is noted. Soft tissues: No acute or significant incidental soft tissue abnormality, IMPRESSION: No acute abnormality. Mild multilevel cervical spondylosis. Mild osteopenia. * CTA chest Impression: No pulmonary embolus is seen. There is a very small right pleural effusion. Lungs appear similar to the recent chest CT (without contrast). There is some narrowing of the trachea on today's exam suggesting tracheomalacia Acute hypoxic respiratory failure: treat with O2 and pneumonia AE COPD: treat with steroids, abx, nebs Hypokalemia: replete and monitor bmp closely ILD suspected: consulted Pulmonology RLL Aspiration pneumonia: treat with abx Type 2 diabetes mellitus: SSI, ada Glaucoma: continue eye drops Hypothyroidism: Continue Synthroid Urinary tract infection: Patient on ceftriaxone for pneumonia which should cover the urinary tract infection Hypertension: Continue antihypertensives, Monitor blood pressure every shift Fall: Probably secondary to underlying illness Physical therapy consulted Advanced care planning/counseling discussion DVT prophylaxis: Patient on Lovenox and GI prophylaxis Elevated D-Dimer, CTA chest negative for PE Leukocytosis most likely from steroids. History Interval history: Patient was seen and examined. Follow-up on current diagnosis of PNA. No overnight events reported to me. Patient denies any chest pain, shortness b reath, nausea/vomiting or severe headaches. Imaging, nursing note, chart, labs and old chart reviewed. Discussed with patient. Brother David and his Karol at bedside. She is on 3 liters O3 with pulse ox of 93% at rest. Hospitalist Physical - Physical exam Narrative exam: Gen: WDWN, NAD, Awake, Alert, Orientated HEENT: NCAT, EOMI, PERRL, OP Clear Neck: supple, no adenopathy, no thyromegaly, no JVD CVS/Heart: RRR, normal S1S2, pulses present bilaterally Chest/Lungs: diminished bs, rhonchi bilaterally, coarse bs on rll, Symmetrical chest expansion, good air entry bilaterally GI/Abdomen: soft, NTND, good bowel sounds, no guarding or rebound /Bladder: no suprapubic tenderness, no CVA or paraspinal tenderness Extermity/Skin: chronic appearing circumferential nontender erythema noted on the bilateral lower extremity is. This is likely venous stasis. Also has encrusted lesions, chronic appearing, with no tenderness MSK: FROM x 4 Neuro: CN 2-12 grossly intact, no new focal deficits Psych: calm - Constitutional Vitals: Temp Pulse Resp BP Pulse Ox 97.7 F 81 20 143/98 96 08/12/18 11:05 08/12/18 11:26 08/12/18 11:05 08/12/18 11:26 08/12/18 11:05 General appearance: Present: well-nourished. Absent: severe distress Results - Labs CBC & Chem 7: 08/12/18 05:29 08/12/18 05:29 Labs: Laboratory Last Values WBC 15.3 K/mm3 (4.5-11.0) H 08/12/18 05:29 RBC 3.90 M/mm3 (3.65-5.03) 08/12/18 05:29 Hgb 12.6 gm/dl (10.1-14.3) 08/12/18 05:29 Hct 36.9 % (30.3-42.9) 08/12/18 05:29 MCV 95 fl (79-97) 08/12/18 05:29 MCH 32 pg (28-32) 08/12/18 05:29 MCHC 34 % (30-34) 08/12/18 05:29 RDW 13.9 % (13.2-15.2) 08/12/18 05:29 Plt Count 403 K/mm3 (140-440) 08/12/18 05:29 Lymph % (Auto) 10.5 % (13.4-35.0) L 08/10/18 14:20 [place] % (Auto) 11.0 % (0.0-7.3) H 08/10/18 14:20 Eos % (Auto) 1.4 % (0.0-4.3) 08/10/18 14:20 Baso % (Auto) 0.7 % (0.0-1.8) 08/10/18 14:20 Lymph # 1.0 K/mm3 (1.2-5.4) L 08/10/18 14:20 [place] # 1.1 K/mm3 (0.0-0.8) H 08/10/18 14:20 Eos # 0.1 K/mm3 (0.0-0.4) 08/10/18 14:20 Baso # 0.1 K/mm3 (0.0-0.1) 08/10/18 14:20 Add Manual Diff Complete 08/11/18 04:09 Total Counted 100 08/11/18 04:09 Seg Neutrophils % 76.4 % (40.0-70.0) H 08/10/18 14:20 Seg Neuts % (Manual) 95.0 % (40.0-70.0) H 08/11/18 04:09 1.0 % 08/11/18 04:09 3.0 % (13.4-35.0) L 08/11/18 04:09 Reactive Lymphs % (Man) 0 % 08/11/18 04:09 0 % (0.0-7.3) 08/11/18 04:09 0 % (0.0-4.3) 08/11/18 04:09 0 % (0.0-1.8) 08/11/18 04:09 1.0 % 08/11/18 04:09 0 % 08/11/18 04:09 0 % 08/11/18 04:09 0 % 08/11/18 04:09 Nucleated RBC % Not Reportable 08/11/18 04:09 Seg Neutrophils # 7.3 K/mm3 (1.8-7.7) 08/10/18 14:20 Seg Neutrophils # Man 8.0 K/mm3 (1.8-7.7) H 08/11/18 04:09 Band Neutrophils # 0.1 K/mm3 08/11/18 04:09 0.3 K/mm3 (1.2-5.4) L 08/11/18 04:09 Abs React Lymphs (Man) 0.0 K/mm3 08/11/18 04:09 0.0 K/mm3 (0.0-0.8) 08/11/18 04:09 0.0 K/mm3 (0.0-0.4) 08/11/18 04:09 0.0 K/mm3 (0.0-0.1) 08/11/18 04:09 0.1 K/mm3 08/11/18 04:09 0.0 K/mm3 08/11/18 04:09 0.0 K/mm3 08/11/18 04:09 Blast Cells # 0.0 K/mm3 08/11/18 04:09 WBC Morphology Not Reportable 08/11/18 04:09 Hypersegmented Neuts Not Reportable 08/11/18 04:09 Hyposegmented Neuts Not Reportable 08/11/18 04:09 Hypogranular Neuts Not Reportable 08/11/18 04:09 Not Reportable 08/11/18 04:09 Not Reportable 08/11/18 04:09 Not Reportable 08/11/18 04:09 Not Reportable 08/11/18 04:09 Not Reportable 08/11/18 04:09 Not Reportable 08/11/18 04:09 Consistent w auto 08/11/18 04:09 Not Reportable 08/11/18 04:09 Plt Clumps, EDTA Not Reportable 08/11/18 04:09 Not Reportable 08/11/18 04:09 Not Reportable 08/11/18 04:09 Not Reportable 08/11/18 04:09 Plt Morphology Comment Not Reportable 08/11/18 04:09 RBC Morphology Not Reportable 08/11/18 04:09 Dimorphic RBCs Not Reportable 08/11/18 04:09 Not Reportable 08/11/18 04:09 Not Reportable 08/11/18 04:09 Not Reportable 08/11/18 04:09 1+ 08/11/18 04:09 Not Reportable 08/11/18 04:09 Not Reportable 08/11/18 04:09 Not Reportable 08/11/18 04:09 Not Reportable 08/11/18 04:09 Not Reportable 08/11/18 04:09 Not Reportable 08/11/18 04:09 Not Reportable 08/11/18 04:09 Not Reportable 08/11/18 04:09 Not Reportable 08/11/18 04:09 Not Reportable 08/11/18 04:09 Not Reportable 08/11/18 04:09 Not Reportable 08/11/18 04:09 Not Reportable 08/11/18 04:09 Not Reportable 08/11/18 04:09 Not Reportable 08/11/18 04:09 Acanthocytes (Spur) Not Reportable 08/11/18 04:09 Rouleaux Not Reportable 08/11/18 04:09 Not Reportable 08/11/18 04:09 Not Reportable 08/11/18 04:09 Not Reportable 08/11/18 04:09 Not Reportable 08/11/18 04:09 Hem Pathologist Commnt No 08/11/18 04:09 APTT 43.6 Sec. (24.2-36.6) H 08/10/18 14:20 624.38 ng/mlDDU (0-234) H 08/11/18 13:08 POC ABG pH 7.483 (7.35-7.45) H 08/10/18 15:06 POC ABG pCO2 38.2 (35-45) 08/10/18 15:06 POC ABG pO2 50 (80-105) L 08/10/18 15:06 POC ABG HCO3 28.6 (22-26 mml/L) 08/10/18 15:06 POC ABG Total CO2 30 (23-27mmol/L) 08/10/18 15:06 POC ABG O2 Sat 88 08/10/18 15:06 POC ABG Base Excess 5 ((-2) - (+3)mmol/L) 08/10/18 15:06 21 % 08/10/18 15:06 Sodium 145 mmol/L (137-145) 08/12/18 05:29 Potassium 3.3 mmol/L (3.6-5.0) L 08/12/18 05:29 Chloride 106.4 mmol/L (98-107) 08/12/18 05:29 Carbon Dioxide 27 mmol/L (22-30) 08/12/18 05:29 15 mmol/L 08/12/18 05:29 BUN 16 mg/dL (7-17) 08/12/18 05:29 0.9 mg/dL (0.7-1.2) 08/12/18 05:29 Estimated GFR > 60 ml/min 08/12/18 05:29 18 % 08/12/18 05:29 Glucose 178 mg/dL (65-100) H 08/12/18 05:29 POC Glucose 182 (70-105) H 08/12/18 08:07 5.9 % (4-6) 08/10/18 20:41 Lactic Acid 2.90 mmol/L (0.7-2.0) H* 08/12/18 09:57 Calcium 9.1 mg/dL (8.4-10.2) 08/12/18 05:29 Magnesium 2.00 mg/dL (1.7-2.3) 08/10/18 14:20 0.60 mg/dL (0.1-1.2) 08/11/18 04:09 AST 17 units/L (5-40) 08/11/18 04:09 ALT 8 units/L (7-56) 08/11/18 04:09 88 units/L (35-129) 08/11/18 04:09 78 units/L (30-135) 08/10/18 14:20 < 0.010 ng/mL (0.00-0.029) 08/10/18 14:20 NT-Pro-B Natriuret Pep 571.8 pg/mL (0-900) 08/10/18 14:30 5.6 g/dL (6.3-8.2) L 08/11/18 04:09 3.1 g/dL (3.9-5) L 08/11/18 04:09 1.2 % 08/11/18 04:09 TSH 1.380 mlU/mL (0.270-4.200) 08/10/18 14:20 Yellow (Yellow) 08/10/18 14:49 Slightly-cloudy (Clear) 08/10/18 14:49 7.0 (5.0-7.0) 08/10/18 14:49 Ur Specific [place] 1.016 (1.003-1.030) 08/10/18 14:49 <15 mg/dl mg/dL (Negative) 08/10/18 14:49 Neg mg/dL (Negative) 08/10/18 14:49 Neg mg/dL (Negative) 08/10/18 14:49 Sm (Negative) 08/10/18 14:49 Pos (Negative) 08/10/18 14:49 Neg (Negative) 08/10/18 14:49 < 2.0 mg/dL (<2.0) 08/10/18 14:49 Ur Leukocyte Esterase Tr (Negative) 08/10/18 14:49 19.0 /HPF (0.0-6.0) H 08/10/18 14:49 4.0 /HPF (0.0-6.0) 08/10/18 14:49 U Epithel Cells (Auto) 3.0 /HPF (0-13.0) 08/10/18 14:49 3+ /HPF (Negative) 08/10/18 14:49 Few /HPF 08/10/18 14:49 Active Medications - Current Medications Current Medications: Generic Name Dose Route Start Last Admin Trade Name Freq PRN Reason Stop Dose Admin Acetaminophen 650 mg 08/10/18 17:42 Tylenol PO Q4H PRN Pain MILD(1-3)/Fever >100.5/BAKER Albuterol 2.5 mg 08/10/18 17:41 Proventil IH Q4HRT PRN Shortness Of Breath Albuterol/Ipratropium 1 ampul 08/10/18 20:00 08/12/18 09:41 Duoneb *Not For Prn Use* IH Not Given QIDRT LOVE Arformoterol Tartrate 15 mcg 08/11/18 20:00 08/12/18 09:41 Brovana Nebu IH Not Given Q12HRT LOVE Budesonide 0.5 mg 08/11/18 20:00 08/12/18 09:41 Pulmicort IH Not Given Q12HRT LOVE Enoxaparin Sodium 40 mg 08/10/18 22:00 08/11/18 22:45 Lovenox SUB-Q 40 mg QDAY@2200 LOVE Administration Famotidine 20 mg 08/10/18 22:00 08/12/18 11:02 Pepcid IV 20 mg BID LOVE Administration Hydromorphone HCl 0.5 mg 08/10/18 17:42 Dilaudid IV Q3H PRN Pain , Severe (7-10) Ceftriaxone Sodium 2 gm in 100 mls @ 200 mls/hr 08/10/18 18:00 08/12/18 10:56 Rocephin/Ns 2 Gm/100 Ml IV 200 mls/hr Q24HR LOVE Administration Protocol Azithromycin 500 mg/ Sodium 250 mls @ 250 mls/hr 08/10/18 18:00 08/12/18 10:45 Chloride IV 250 mls/hr Q24HR LOVE Administration Protocol Insulin Human Lispro 0 unit 08/10/18 22:00 08/12/18 11:57 Humalog SUB-Q 2 unit ACHS LOVE Administration Protocol Latanoprost 1 drops 08/10/18 22:00 08/11/18 22:44 Latanoprost 0.005% OU 1 drops HS LOVE Administration Levothyroxine Sodium 112 mcg 08/10/18 18:00 08/12/18 05:18 Synthroid PO 112 mcg DAILY@0600 LOVE Administration Levothyroxine Sodium 25 mcg 08/10/18 18:00 08/12/18 05:18 Synthroid PO 25 mcg DAILY@0600 LOVE Administration Losartan Potassium 50 mg 08/10/18 18:00 08/12/18 11:26 Cozaar PO 50 mg QDAY LOVE Administration Methylprednisolone Sodium Succinate 80 mg 08/10/18 18:00 08/12/18 05:16 Solu-Medrol IV 80 mg Q8HR LOVE Administration Ondansetron HCl 4 mg 08/10/18 17:42 Zofran IV Q8H PRN Nausea And Vomiting Potassium Chloride 10 meq 08/10/18 18:00 08/12/18 11:02 K-Dur PO 10 meq QDAY LOVE Administration Sodium Chloride 10 ml 08/10/18 22:00 08/12/18 10:57 Sodium Chloride Flush Syringe 10 Ml IV 10 ml BID LOVE Administration Sodium Chloride 10 ml 08/10/18 17:42 Sodium Chloride Flush Syringe 10 Ml IV PRN PRN LINE FLUSH
[2018-08-12] MEDS: LOVENOX SUB-Q SCH (22:18)
[2018-08-12] MEDS: LATANOPROST 0.005% OU SCH (22:18)
[2018-08-13] MEDS: SYNTHROID PO SCH ×2 (05:43)
[2018-08-13] MEDS: SOLU-Medrol IV SCH ×3 (05:43→23:01)
[2018-08-13 07:06] LABS: Hematocrit 37.5 % (30.3-42.9); Hemoglobin 12.9 gm/dl (10.1-14.3); Mean Corpuscular HGB Conc 34 % (30-34); Mean Corpuscular Volume 95 fl (79-97); Platelet Count 383 K/mm3 (140-440); Red Blood Count 3.95 M/mm3 (3.65-5.03); Red Cell Distribution Width 13.8 % (13.2-15.2)
[2018-08-13 07:12] LABS: Calcium 8.5 mg/dL (8.4-10.2)
[2018-08-13] MEDS: BROVANA NEBU IH SCH ×2 (07:58→19:44)
[2018-08-13] MEDS: DUONEB *Not for PRN Use IH SCH ×4 (07:59→19:57)
[2018-08-13] MEDS: PULMICORT IH SCH ×2 (07:59→19:45)
[2018-08-13] MEDS: HumaLOG SUB-Q SCH ×4 (10:13→23:09)
[2018-08-13] MEDS: K-DUR PO SCH (10:14)
[2018-08-13] MEDS: COZAAR PO SCH (10:14)
[2018-08-13] MEDS: ZITHROMAX 500 MG in NACL 0.9% 250ML 250 ML IV SCH (10:14)
[2018-08-13] MEDS: PEPCID IV SCH ×2 (10:14→22:59)
[2018-08-13] MEDS: SODIUM CHLORIDE FLUSH SYRINGE 10 ML IV SCH ×2 (10:15→23:06)
[2018-08-13] MEDS: ROCEPHIN/NS 2 GM/100 ML 2 GM/100 ML BAG IV SCH (10:15)
--- NOTE | 2018-08-13 11:47 | Progress Note ---
Assessment and Plan Acute hypoxic respiratory failure -differentials include post radiation lung disease, pneumonia, AE-COPD, ILD AE COPD Hypokalemia RLL Aspiration pneumonia Type 2 diabetes mellitus Glaucoma Hypothyroidism Urinary tract infection Hypertension Fall -Reviewed CT chest and CXR, evidence of GGO with small pleural effusions. No pulmonary embolism, the radiographic findings are not consistent with radiation pneumonitis. The echocardiogram shows grade 1 diastolic dysfunction, otherwise preserved EF without documentation of pulmonary HTN. Will recommend to continue with bronchodilators,gentle diuresis as tolerated by renal function and her hemodynamics and a short course of steroids. - Blood pressure control -PT/OT/Mobility -Bronchodilaotrs -Supplemental oxygen to keep O2 sats>90% -Outpatient sleep study -Out patient follow up of imaging post antibiotic therapy and diuresis. If the GGO persist may need further evaluation to r/o metastatic breast disease Subjective Date of service: 08/13/18 Interval history: Patient is 82 yo lady with a history of Chronic BLE venous leg stasis with lymphedema, Glaucoma, NIDDM, hypothyroidism, hypertension, COPD who presented to [facility] ED after a mechanical fall at home with inability to get up due to generalized weakness Patient is seen today for: Pneumonia, Dyspnea, ILD Seen and examined at bedside; 24hour events reviewed; nursing and respiratory care staff consulted; no adverse overnight events reported to me; No acute overnight events, On 3L supplemental oxygen, states she is feeling better She denies any chest pain, no fevers or chills, no nausea or vomiting, no diarrhea. On going exertional dyspnea Objective - Exam Narrative Exam: Gen: WDWN, NAD, Awake, Alert, Orientated x 2, on supplemental oxygen at 3L/min HEENT: NCAT, EOMI, PERRL, OP Clear Neck: supple, no adenopathy, no thyromegaly, no JVD , short neck CVS/Heart: RRR, normal S1S2, pulses present bilaterally Chest/Lungs: improving diminished BS, rhonchi bilaterally, coarse BS on RLL, Symmetrical chest expansion, good air entry bilaterally GI/Abdomen: soft, NTND, good bowel sounds, no guarding or rebound /Bladder: no suprapubic tenderness, no CVA or paraspinal tenderness Extermity/Skin: chronic appearing circumferential non tender erythema noted on the bilateral lower extremity Also has encrusted lesions, chronic appearing, with no tenderness MSK: FROM x 4 Neuro: CN 2-12 grossly intact, no new focal deficits Psych: calm Vital Signs - 12hr 08/13/18 08/13/18 08/13/18 02:49 02:55 07:25 Temperature 97.8 F 98.1 F 98.6 F Pulse Rate 80 83 78 Pulse Rate [ Anterior Bilateral] Respiratory 18 18 20 Rate Respiratory Rate [Anterior Bilateral] Blood Pressure 159/89 122/51 166/80 O2 Sat by Pulse 94 99 90 Oximetry 08/13/18 08/13/18 07:59 10:14 Temperature Pulse Rate 78 Pulse Rate [ 86 Anterior Bilateral] Respiratory Rate Respiratory 20 Rate [Anterior Bilateral] Blood Pressure 166/80 O2 Sat by Pulse 93 Oximetry CBC and BMP: 08/15/18 03:31 08/15/18 03:31 ABG, PT/INR, D-dimer: ABG POC ABG pH 7.483 (7.35-7.45) H 08/10/18 15:06 POC ABG pCO2 38.2 (35-45) 08/10/18 15:06 POC ABG pO2 50 (80-105) L 08/10/18 15:06 POC ABG HCO3 28.6 (22-26 mml/L) 08/10/18 15:06 POC ABG Total CO2 30 (23-27mmol/L) 08/10/18 15:06 POC ABG O2 Sat 88 08/10/18 15:06 PT/INR, D-dimer 624.38 ng/mlDDU (0-234) H 08/11/18 13:08 Abnormal lab findings: Abnormal Labs 08/10/18 08/10/18 08/10/18 14:20 14:20 14:20 WBC MCH 33 H MCHC 35 H Lymph % (Auto) 10.5 L [place] % (Auto) 11.0 H Lymph # 1.0 L [place] # 1.1 H Seg Neutrophils % 76.4 H Seg Neuts % (Manual) Lymphocytes % (Manual) Seg Neutrophils # Man Lymphocytes # (Manual) APTT 43.6 H D-Dimer POC ABG pH POC ABG pO2 Sodium Potassium 2.9 L* Chloride BUN Glucose 131 H POC Glucose Lactic Acid Total Protein Albumin 3.0 L Urine WBC (Auto) 08/10/18 08/10/18 08/10/18 14:49 15:06 20:41 WBC MCH MCHC Lymph % (Auto) [place] % (Auto) Lymph # [place] # Seg Neutrophils % Seg Neuts % (Manual) Lymphocytes % (Manual) Seg Neutrophils # Man Lymphocytes # (Manual) APTT D-Dimer POC ABG pH 7.483 H POC ABG pO2 50 L Sodium Potassium Chloride BUN Glucose POC Glucose Lactic Acid 2.20 H* Total Protein Albumin Urine WBC (Auto) 19.0 H 08/10/18 08/11/18 08/11/18 21:43 04:09 04:09 WBC MCH 33 H MCHC 35 H Lymph % (Auto) [place] % (Auto) Lymph # [place] # Seg Neutrophils % Seg Neuts % (Manual) 95.0 H Lymphocytes % (Manual) 3.0 L Seg Neutrophils # Man 8.0 H Lymphocytes # (Manual) 0.3 L APTT D-Dimer POC ABG pH POC ABG pO2 Sodium Potassium Chloride BUN Glucose POC Glucose 236 H Lactic Acid 2.10 H* Total Protein Albumin Urine WBC (Auto) 08/11/18 08/11/18 08/11/18 04:09 08:11 11:32 WBC MCH MCHC Lymph % (Auto) [place] % (Auto) Lymph # [place] # Seg Neutrophils % Seg Neuts % (Manual) Lymphocytes % (Manual) Seg Neutrophils # Man Lymphocytes # (Manual) APTT D-Dimer POC ABG pH POC ABG pO2 Sodium 146 H Potassium Chloride 107.9 H BUN Glucose 152 H POC Glucose 174 H Lactic Acid 2.80 H* Total Protein 5.6 L Albumin 3.1 L Urine WBC (Auto) 08/11/18 08/11/18 08/11/18 11:46 13:08 15:42 WBC MCH MCHC Lymph % (Auto) [place] % (Auto) Lymph # [place] # Seg Neutrophils % Seg Neuts % (Manual) Lymphocytes % (Manual) Seg Neutrophils # Man Lymphocytes # (Manual) APTT D-Dimer 624.38 H POC ABG pH POC ABG pO2 Sodium Potassium Chloride BUN Glucose POC Glucose 210 H Lactic Acid 4.00 H* Total Protein Albumin Urine WBC (Auto) 08/11/18 08/11/18 08/11/18 16:38 19:34 21:09 WBC MCH MCHC Lymph % (Auto) [place] % (Auto) Lymph # [place] # Seg Neutrophils % Seg Neuts % (Manual) Lymphocytes % (Manual) Seg Neutrophils # Man Lymphocytes # (Manual) APTT D-Dimer POC ABG pH POC ABG pO2 Sodium Potassium Chloride BUN Glucose POC Glucose 213 H 270 H Lactic Acid 4.70 H* Total Protein Albumin Urine WBC (Auto) 08/11/18 08/11/18 08/12/18 21:56 23:41 05:29 WBC 15.3 H MCH MCHC Lymph % (Auto) [place] % (Auto) Lymph # [place] # Seg Neutrophils % Seg Neuts % (Manual) Lymphocytes % (Manual) Seg Neutrophils # Man Lymphocytes # (Manual) APTT D-Dimer POC ABG pH POC ABG pO2 Sodium Potassium Chloride BUN Glucose POC Glucose Lactic Acid 5.20 H* 4.40 H* Total Protein Albumin Urine WBC (Auto) 08/12/18 08/12/18 08/12/18 05:29 05:29 08:07 WBC MCH MCHC Lymph % (Auto) [place] % (Auto) Lymph # [place] # Seg Neutrophils % Seg Neuts % (Manual) Lymphocytes % (Manual) Seg Neutrophils # Man Lymphocytes # (Manual) APTT D-Dimer POC ABG pH POC ABG pO2 Sodium Potassium 3.3 L Chloride BUN Glucose 178 H POC Glucose 182 H Lactic Acid 2.40 H* Total Protein Albumin Urine WBC (Auto) 08/12/18 08/12/18 08/12/18 09:57 11:34 17:01 WBC MCH MCHC Lymph % (Auto) [place] % (Auto) Lymph # [place] # Seg Neutrophils % Seg Neuts % (Manual) Lymphocytes % (Manual) Seg Neutrophils # Man Lymphocytes # (Manual) APTT D-Dimer POC ABG pH POC ABG pO2 Sodium Potassium Chloride BUN Glucose POC Glucose 191 H 136 H Lactic Acid 2.90 H* Total Protein Albumin Urine WBC (Auto) 08/12/18 08/13/18 08/13/18 21:17 06:13 06:13 WBC 13.1 H MCH 33 H MCHC Lymph % (Auto) [place] % (Auto) Lymph # [place] # Seg Neutrophils % Seg Neuts % (Manual) Lymphocytes % (Manual) Seg Neutrophils # Man Lymphocytes # (Manual) APTT D-Dimer POC ABG pH POC ABG pO2 Sodium Potassium 3.5 L Chloride BUN 20 H Glucose 168 H POC Glucose 175 H Lactic Acid Total Protein Albumin Urine WBC (Auto) 08/13/18 07:32 WBC MCH MCHC Lymph % (Auto) [place] % (Auto) Lymph # [place] # Seg Neutrophils % Seg Neuts % (Manual) Lymphocytes % (Manual) Seg Neutrophils # Man Lymphocytes # (Manual) APTT D-Dimer POC ABG pH POC ABG pO2 Sodium Potassium Chloride BUN Glucose POC Glucose 165 H Lactic Acid Total Protein Albumin Urine WBC (Auto) Chest x-ray: image reviewed Allied health notes reviewed: RT
--- NOTE | 2018-08-13 12:43 | Progress Note ---
Assessment and Plan Assessment and plan: Patient is 82 yo lady with a history of Chronic BLE venous leg stasis with lymphedema, Glaucoma, NIDDM, hypothyroidism, hypertension, COPD who presented to [facility] ED after a mechanical fall at home with inability to get up due to generalized weakness. Brother David and sister Juliana helped with the history. * pCXR IMPRESSION: 1. No acute findings. 2. Probable chronic interstitial fibrosis. * Pelvic x-rays FINDINGS: No fracture or dislocation is seen within the pelvis or either hip. Moderate left and advanced right hip degenerative arthrosis is present. * Chest CT without IMPRESSION: Patchy infiltrate in the right lung as described. Correlate for pneumonia. Borderline to mild cardiomegaly. Degenerative changes in the spine. * Head CT and C-spine CT: IMPRESSION: No acute abnormality. Volume loss and chronic ischemic changes in the white matter. * CT CERVICAL SPINE WITHOUT CONTRAST INDICATION: Acute neck pain, trauma, fall today. FINDINGS: Alignment: Spinal alignment is normal. Bones: There is no acute osseous abnormality. Mild multilevel discogenic DJD is present. Minimal diffuse facet arthropathy is appreciated. Mild osteopenia is noted. Soft tissues: No acute or significant incidental soft tissue abnormality, IMPRESSION: No acute abnormality. Mild multilevel cervical spondylosis. Mild osteopenia. * CTA chest Impression: No pulmonary embolus is seen. There is a very small right pleural effusion. Lungs appear similar to the recent chest CT (without contrast). There is some narrowing of the trachea on today's exam suggesting tracheomalacia Acute hypoxic respiratory failure: treat with O2 and pneumonia AE COPD: treat with steroids, abx, nebs Hypokalemia: replete and monitor bmp closely ILD suspected: consulted Pulmonology Acute metabolic encephalopathy, poa: treat the pneumonia RLL Aspiration pneumonia: treat with abx Type 2 diabetes mellitus: SSI, ada Glaucoma: continue eye drops Hypothyroidism: Continue Synthroid Urinary tract infection: Patient on ceftriaxone for pneumonia which should cover the urinary tract infection Hypertension: Continue antihypertensives, Monitor blood pressure every shift Fall: Probably secondary to underlying illness Physical therapy consulted Advanced care planning/counseling discussion DVT prophylaxis: Patient on Lovenox and GI prophylaxis Elevated D-Dimer, CTA chest negative for PE Leukocytosis most likely from steroids. Patient request Dementia workup, patient will be discharge to family member home. d/w sister Juliana, brother David and his Karol at bedside. History Interval history: Patient was seen and examined. Follow-up on current diagnosis of PNA. No overnight events reported to me. Patient denies any chest pain, shortness breath, nausea/vomiting or severe headaches. Imaging, nursing note, chart, labs and old chart reviewed. Discussed with patient. Brother David and his Karol at bedside. She is on 3 liters O3 with pulse ox of 93% at rest. Hospitalist Physical - Physical exam Narrative exam: Gen: WDWN, NAD, Awake, Alert, Orientated HEENT: NCAT, EOMI, PERRL, OP Clear Neck: supple, no adenopathy, no thyromegaly, no JVD CVS/Heart: RRR, normal S1S2, pulses present bilaterally Chest/Lungs: diminished bs, rhonchi bilaterally, coarse bs on rll, Symmetrical chest expansion, good air entry bilaterally GI/Abdomen: soft, NTND, good bowel sounds, no guarding or rebound /Bladder: no suprapubic tenderness, no CVA or paraspinal tenderness Extermity/Skin: chronic appearing circumferential nontender erythema noted on the bilateral lower extremity is. This is likely venous stasis. Also has encrusted lesions, chronic appearing, with no tenderness MSK: FROM x 4 Neuro: CN 2-12 grossly intact, no new focal deficits Psych: calm - Constitutional Vitals: Temp Pulse Resp BP Pulse Ox 98.6 F 78 20 166/80 93 08/13/18 07:25 08/13/18 10:14 08/13/18 07:59 08/13/18 10:14 08/13/18 07:59 General appearance: Present: well-nourished. Absent: severe distress Results - Labs CBC & Chem 7: 08/13/18 06:13 08/13/18 06:13 Labs: Laboratory Last Values WBC 13.1 K/mm3 (4.5-11.0) H 08/13/18 06:13 RBC 3.95 M/mm3 (3.65-5.03) 08/13/18 06:13 Hgb 12.9 gm/dl (10.1-14.3) 08/13/18 06:13 Hct 37.5 % (30.3-42.9) 08/13/18 06:13 MCV 95 fl (79-97) 08/13/18 06:13 MCH 33 pg (28-32) H 08/13/18 06:13 MCHC 34 % (30-34) 08/13/18 06:13 RDW 13.8 % (13.2-15.2) 08/13/18 06:13 Plt Count 383 K/mm3 (140-440) 08/13/18 06:13 Lymph % (Auto) 10.5 % (13.4-35.0) L 08/10/18 14:20 [place] % (Auto) 11.0 % (0.0-7.3) H 08/10/18 14:20 Eos % (Auto) 1.4 % (0.0-4.3) 08/10/18 14:20 Baso % (Auto) 0.7 % (0.0-1.8) 08/10/18 14:20 Lymph # 1.0 K/mm3 (1.2-5.4) L 08/10/18 14:20 [place] # 1.1 K/mm3 (0.0-0.8) H 08/10/18 14:20 Eos # 0.1 K/mm3 (0.0-0.4) 08/10/18 14:20 Baso # 0.1 K/mm3 (0.0-0.1) 08/10/18 14:20 Add Manual Diff Complete 08/11/18 04:09 Total Counted 100 08/11/18 04:09 Seg Neutrophils % 76.4 % (40.0-70.0) H 08/10/18 14:20 Seg Neuts % (Manual) 95.0 % (40.0-70.0) H 08/11/18 04:09 1.0 % 08/11/18 04:09 3.0 % (13.4-35.0) L 08/11/18 04:09 Reactive Lymphs % (Man) 0 % 08/11/18 04:09 0 % (0.0-7.3) 08/11/18 04:09 0 % (0.0-4.3) 08/11/18 04:09 0 % (0.0-1.8) 08/11/18 04:09 1.0 % 08/11/18 04:09 0 % 08/11/18 04:09 0 % 08/11/18 04:09 0 % 08/11/18 04:09 Nucleated RBC % Not Reportable 08/11/18 04:09 Seg Neutrophils # 7.3 K/mm3 (1.8-7.7) 08/10/18 14:20 Seg Neutrophils # Man 8.0 K/mm3 (1.8-7.7) H 08/11/18 04:09 Band Neutrophils # 0.1 K/mm3 08/11/18 04:09 0.3 K/mm3 (1.2-5.4) L 08/11/18 04:09 Abs React Lymphs (Man) 0.0 K/mm3 08/11/18 04:09 0.0 K/mm3 (0.0-0.8) 08/11/18 04:09 0.0 K/mm3 (0.0-0.4) 08/11/18 04:09 0.0 K/mm3 (0.0-0.1) 08/11/18 04:09 0.1 K/mm3 08/11/18 04:09 0.0 K/mm3 08/11/18 04:09 0.0 K/mm3 08/11/18 04:09 Blast Cells # 0.0 K/mm3 08/11/18 04:09 WBC Morphology Not Reportable 08/11/18 04:09 Hypersegmented Neuts Not Reportable 08/11/18 04:09 Hyposegmented Neuts Not Reportable 08/11/18 04:09 Hypogranular Neuts Not Reportable 08/11/18 04:09 Not Reportable 08/11/18 04:09 Not Reportable 08/11/18 04:09 Not Reportable 08/11/18 04:09 Not Reportable 08/11/18 04:09 Not Reportable 08/11/18 04:09 Not Reportable 08/11/18 04:09 Consistent w auto 08/11/18 04:09 Not Reportable 08/11/18 04:09 Plt Clumps, EDTA Not Reportable 08/11/18 04:09 Not Reportable 08/11/18 04:09 Not Reportable 08/11/18 04:09 Not Reportable 08/11/18 04:09 Plt Morphology Comment Not Reportable 08/11/18 04:09 RBC Morphology Not Reportable 08/11/18 04:09 Dimorphic RBCs Not Reportable 08/11/18 04:09 Not Reportable 08/11/18 04:09 Not Reportable 08/11/18 04:09 Not Reportable 08/11/18 04:09 1+ 08/11/18 04:09 Not Reportable 08/11/18 04:09 Not Reportable 08/11/18 04:09 Not Reportable 08/11/18 04:09 Not Reportable 08/11/18 04:09 Not Reportable 08/11/18 04:09 Not Reportable 08/11/18 04:09 Not Reportable 08/11/18 04:09 Not Reportable 08/11/18 04:09 Not Reportable 08/11/18 04:09 Not Reportable 08/11/18 04:09 Not Reportable 08/11/18 04:09 Not Reportable 08/11/18 04:09 Not Reportable 08/11/18 04:09 Not Reportable 08/11/18 04:09 Not Reportable 08/11/18 04:09 Acanthocytes (Spur) Not Reportable 08/11/18 04:09 Rouleaux Not Reportable 08/11/18 04:09 Not Reportable 08/11/18 04:09 Not Reportable 08/11/18 04:09 Not Reportable 08/11/18 04:09 Not Reportable 08/11/18 04:09 Hem Pathologist Commnt No 08/11/18 04:09 APTT 43.6 Sec. (24.2-36.6) H 08/10/18 14:20 624.38 ng/mlDDU (0-234) H 08/11/18 13:08 POC ABG pH 7.483 (7.35-7.45) H 08/10/18 15:06 POC ABG pCO2 38.2 (35-45) 08/10/18 15:06 POC ABG pO2 50 (80-105) L 08/10/18 15:06 POC ABG HCO3 28.6 (22-26 mml/L) 08/10/18 15:06 POC ABG Total CO2 30 (23-27mmol/L) 08/10/18 15:06 POC ABG O2 Sat 88 08/10/18 15:06 POC ABG Base Excess 5 ((-2) - (+3)mmol/L) 08/10/18 15:06 21 % 08/10/18 15:06 Sodium 144 mmol/L (137-145) 08/13/18 06:13 Potassium 3.5 mmol/L (3.6-5.0) L 08/13/18 06:13 Chloride 104.1 mmol/L (98-107) 08/13/18 06:13 Carbon Dioxide 27 mmol/L (22-30) 08/13/18 06:13 16 mmol/L 08/13/18 06:13 BUN 20 mg/dL (7-17) H 08/13/18 06:13 1.0 mg/dL (0.7-1.2) 08/13/18 06:13 Estimated GFR 53 ml/min 08/13/18 06:13 20 % 08/13/18 06:13 Glucose 168 mg/dL (65-100) H 08/13/18 06:13 POC Glucose 240 (70-105) H 08/13/18 11:55 5.9 % (4-6) 08/10/18 20:41 Lactic Acid 2.90 mmol/L (0.7-2.0) H* 08/12/18 09:57 Calcium 8.5 mg/dL (8.4-10.2) 08/13/18 06:13 Magnesium 2.00 mg/dL (1.7-2.3) 08/10/18 14:20 0.60 mg/dL (0.1-1.2) 08/11/18 04:09 AST 17 units/L (5-40) 08/11/18 04:09 ALT 8 units/L (7-56) 08/11/18 04:09 88 units/L (35-129) 08/11/18 04:09 78 units/L (30-135) 08/10/18 14:20 < 0.010 ng/mL (0.00-0.029) 08/10/18 14:20 NT-Pro-B Natriuret Pep 571.8 pg/mL (0-900) 08/10/18 14:30 5.6 g/dL (6.3-8.2) L 08/11/18 04:09 3.1 g/dL (3.9-5) L 08/11/18 04:09 1.2 % 08/11/18 04:09 TSH 1.380 mlU/mL (0.270-4.200) 08/10/18 14:20 Yellow (Yellow) 08/10/18 14:49 Slightly-cloudy (Clear) 08/10/18 14:49 7.0 (5.0-7.0) 08/10/18 14:49 Ur Specific [place] 1.016 (1.003-1.030) 08/10/18 14:49 <15 mg/dl mg/dL (Negative) 08/10/18 14:49 Neg mg/dL (Negative) 08/10/18 14:49 Neg mg/dL (Negative) 08/10/18 14:49 Sm (Negative) 08/10/18 14:49 Pos (Negative) 08/10/18 14:49 Neg (Negative) 08/10/18 14:49 < 2.0 mg/dL (<2.0) 08/10/18 14:49 Ur Leukocyte Esterase Tr (Negative) 08/10/18 14:49 19.0 /HPF (0.0-6.0) H 08/10/18 14:49 4.0 /HPF (0.0-6.0) 08/10/18 14:49 U Epithel Cells (Auto) 3.0 /HPF (0-13.0) 08/10/18 14:49 3+ /HPF (Negative) 08/10/18 14:49 Few /HPF 08/10/18 14:49 Active Medications - Current Medications Current Medications: Generic Name Dose Route Start Last Admin Trade Name Freq PRN Reason Stop Dose Admin Acetaminophen 650 mg 08/10/18 17:42 Tylenol PO Q4H PRN Pain MILD(1-3)/Fever >100.5/BAKER Albuterol 2.5 mg 08/10/18 17:41 Proventil IH Q4HRT PRN Shortness Of Breath Albuterol/Ipratropium 1 ampul 08/10/18 20:00 08/13/18 07:59 Duoneb *Not For Prn Use* IH 1 ampul QIDRT LOVE Administration Arformoterol Tartrate 15 mcg 08/11/18 20:00 08/13/18 07:58 Brovana Nebu IH 15 mcg Q12HRT LOVE Administration Budesonide 0.5 mg 08/11/18 20:00 08/13/18 07:59 Pulmicort IH 0.5 mg Q12HRT LOVE Administration Enoxaparin Sodium 40 mg 08/10/18 22:00 08/12/18 22:18 Lovenox SUB-Q 40 mg QDAY@2200 LOVE Administration Famotidine 20 mg 08/10/18 22:00 08/13/18 10:14 Pepcid IV 20 mg BID LOVE Administration Hydromorphone HCl 0.5 mg 08/10/18 17:42 Dilaudid IV Q3H PRN Pain , Severe (7-10) Ceftriaxone Sodium 2 gm in 100 mls @ 200 mls/hr 08/10/18 18:00 08/13/18 10:15 Rocephin/Ns 2 Gm/100 Ml IV 200 mls/hr Q24HR LOVE Administration Protocol Azithromycin 500 mg/ Sodium 250 mls @ 250 mls/hr 08/10/18 18:00 08/13/18 10:14 Chloride IV 250 mls/hr Q24HR LOVE Administration Protocol Insulin Human Lispro 0 unit 08/10/18 22:00 08/13/18 12:27 Humalog SUB-Q 3 unit ACHS LOVE Administration Protocol Latanoprost 1 drops 08/10/18 22:00 08/12/18 22:18 Latanoprost 0.005% OU 1 drops HS LOVE Administration Levothyroxine Sodium 112 mcg 08/10/18 18:00 08/13/18 05:43 Synthroid PO 112 mcg DAILY@0600 LOVE Administration Levothyroxine Sodium 25 mcg 08/10/18 18:00 08/13/18 05:43 Synthroid PO 25 mcg DAILY@0600 LOVE Administration Losartan Potassium 50 mg 08/10/18 18:00 08/13/18 10:14 Cozaar PO 50 mg QDAY LOVE Administration Methylprednisolone Sodium Succinate 80 mg 08/10/18 18:00 08/13/18 05:43 Solu-Medrol IV 80 mg Q8HR LOVE Administration Ondansetron HCl 4 mg 08/10/18 17:42 Zofran IV Q8H PRN Nausea And Vomiting Potassium Chloride 10 meq 08/10/18 18:00 08/13/18 10:14 K-Dur PO 10 meq QDAY LOVE Administration Sodium Chloride 10 ml 08/10/18 22:00 08/13/18 10:15 Sodium Chloride Flush Syringe 10 Ml IV 10 ml BID LOVE Administration Sodium Chloride 10 ml 08/10/18 17:42 Sodium Chloride Flush Syringe 10 Ml IV PRN PRN LINE FLUSH
--- NOTE | 2018-08-13 16:23 | Consultation ---
History of Present Illness - Reason for Consult Consult date: 08/13/18 Reason for consult: Mental Health Evaluation Requesting physician: SWAPNA JAMES - Chief Complaint Chief complaint: "I am doing okay" - History of Present Psychiatric Illness 82 y.o. white female who presented to the ER for generalized weakness. Psychiatry was consulted to see the patient for dementia. Today the patient was calm, but confused during the assessment. She could ID the current [place] President, but could not state her current location. She only could recall 1/3 numbers within 5 mins. She was asked about her home medications and why was she brought to hospital, some of her answers were not logical. Per collateral information from her brother David, he stated that his sister's "memories issues and confusion" just started the past couple of days prior to her hospitalization. He stated that she wasn't confused a week ago. He denies that the patient has a mental health dx. David acknowledged erratic sleep by the patient (difficulty starting/staying sleep). David stated that this isn't his sister's baseline. The patient denies SI/HI's and AVH's. She denies a poor appetite. She denies recreational drug use and alcohol consumption (etoh). Medications and Allergies Allergies Allergy/AdvReac Type Severity Reaction Status Date / Time cefaclor [From Ceclor] Allergy Hives Verified 06/19/14 11:51 ciprofloxacin [From Cipro] Allergy Unknown Verified 08/10/18 16:56 levofloxacin [From Levaquin] Allergy Unknown Verified 08/10/18 16:56 Sulfa (Sulfonamide Allergy Unknown Verified 08/10/18 16:56 Antibiotics) lisinopril AdvReac Unknown Verified 08/10/18 16:56 usinadol Allergy Unknown Uncoded 08/10/18 16:56 BLOOD PRESSURE MED AdvReac Itching Uncoded 06/19/14 11:51 Home Medications Medication Instructions Recorded Confirmed Last Taken Type Latanoprost 1 drop OU HS 06/19/14 08/10/18 06/21/14 History Potassium Chloride [K-Tab ER] 10 meq PO DAILY 06/19/14 08/10/18 06/21/14 History Levothyroxine Sodium [Synthroid] 137 mcg PO QDAY 08/10/18 08/10/18 Unknown History Telmisartan 40 mg PO QDAY 08/10/18 08/10/18 Unknown History metFORMIN XR [Glucophage XR] 500 mg PO BID 08/10/18 08/10/18 Unknown History Active Meds: Active Medications Acetaminophen (Tylenol) 650 mg PO Q4H PRN PRN Reason: Pain MILD(1-3)/Fever >100.5/BAKER Albuterol (Proventil) 2.5 mg IH Q4HRT PRN PRN Reason: Shortness Of Breath Albuterol/Ipratropium (Duoneb *Not For Prn Use*) 1 ampul IH QIDRT [facility] Last Admin: 08/13/18 13:26 Dose: 1 ampul Documented by: Arformoterol Tartrate (Brovana Nebu) 15 mcg IH Q12HRT [facility] Last Admin: 08/13/18 07:58 Dose: 15 mcg Documented by: Budesonide (Pulmicort) 0.5 mg IH Q12HRT [facility] Last Admin: 08/13/18 07:59 Dose: 0.5 mg Documented by: Enoxaparin Sodium (Lovenox) 40 mg SUB-Q QDAY@2200 [facility] Last Admin: 08/12/18 22:18 Dose: 40 mg Documented by: Famotidine (Pepcid) 20 mg IV BID [facility] Last Admin: 08/13/18 10:14 Dose: 20 mg Documented by: Hydromorphone HCl (Dilaudid) 0.5 mg IV Q3H PRN PRN Reason: Pain , Severe (7-10) Hydrophilic Ointment (Aquaphor) 1 applic TP Q12H [facility] Ceftriaxone Sodium (Rocephin/Ns 2 Gm/100 Ml) 2 gm in 100 mls @ 200 mls/hr IV Q24HR [facility]; Protocol Last Admin: 08/13/18 10:15 Dose: 200 mls/hr Documented by: Azithromycin 500 mg/ Sodium (Chloride) 250 mls @ 250 mls/hr IV Q24HR [facility]; Protocol Last Admin: 08/13/18 10:14 Dose: 250 mls/hr Documented by: Insulin Human Lispro (Humalog) 0 unit SUB-Q ACHS [facility]; Protocol Last Admin: 08/13/18 12:27 Dose: 3 unit Documented by: Latanoprost (Latanoprost 0.005%) 1 drops OU HS [facility] Last Admin: 08/12/18 22:18 Dose: 1 drops Documented by: Levothyroxine Sodium (Synthroid) 112 mcg PO DAILY@0600 [facility] Last Admin: 08/13/18 05:43 Dose: 112 mcg Documented by: Levothyroxine Sodium (Synthroid) 25 mcg PO DAILY@0600 [facility] Last Admin: 08/13/18 05:43 Dose: 25 mcg Documented by: Losartan Potassium (Cozaar) 50 mg PO QDAY [facility] Last Admin: 08/13/18 10:14 Dose: 50 mg Documented by: Methylprednisolone Sodium Succinate (Solu-Medrol) 80 mg IV Q8HR [facility] Last Admin: 08/13/18 14:26 Dose: 80 mg Documented by: Ondansetron HCl (Zofran) 4 mg IV Q8H PRN PRN Reason: Nausea And Vomiting Potassium Chloride (K-Dur) 10 meq PO QDAY [facility] Last Admin: 08/13/18 10:14 Dose: 10 meq Documented by: Sodium Chloride (Sodium Chloride Flush Syringe 10 Ml) 10 ml IV BID [facility] Last Admin: 08/13/18 10:15 Dose: 10 ml Documented by: Sodium Chloride (Sodium Chloride Flush Syringe 10 Ml) 10 ml IV PRN PRN PRN Reason: LINE FLUSH Past psychiatric history - Past Medical History Past Medical History: hypertension, hypothyroidism Past Surgical History: No surgical history - past Psychiatric treatment and history psychiatric treatment history: Denies a psy hx and a fam psy hx. - Social History Social history: Lives alone Mental Status Exam - Vital signs Last Vital Signs Temp 98.0 F 08/13/18 13:37 Pulse 88 08/13/18 13:38 Resp 18 08/13/18 13:38 BP 148/65 08/13/18 13:37 Pulse Ox 93 08/13/18 13:37 Results Result Diagrams: 08/13/18 06:13 08/13/18 06:13 Abnormal lab results 08/12/18 08/12/18 08/13/18 Range/Units 17:01 21:17 06:13 WBC 13.1 H (4.5-11.0) K/mm3 MCH 33 H (28-32) pg Potassium (3.6-5.0) mmol/L BUN (7-17) mg/dL Glucose (65-100) mg/dL POC Glucose 136 H 175 H (70-105) 08/13/18 08/13/18 08/13/18 Range/Units 06:13 07:32 11:55 WBC (4.5-11.0) K/mm3 MCH (28-32) pg Potassium 3.5 L (3.6-5.0) mmol/L BUN 20 H (7-17) mg/dL Glucose 168 H (65-100) mg/dL POC Glucose 165 H 240 H (70-105) All other labs normal. Assessment and Plan Assessment and plan: Impression: Delirium. Insomnia. Today the patient was calm with some confusion during the assessment. Medical: PNA, UTI, WBC 13.1 trending up Recommendation/Plan: Start Meatonin 5 mg PO HS for sleep. I will follow up with the patient in 24 hours. Recommend Delirium precautions below: 1. Frequently reorient patient and involve him/her in their care (simple explanations of procedures, tests, medications). 2. Lights on and shades open during daytime hours. 3. Write date and goals of care in a visible place. 4. Try to avoid unnecessary interruptions to sleep during nighttime hours. 5. Obtain glasses, hearing aids from home if patient uses these at baseline. 6. Avoid medications that may exacerbate delirium (especially narcotics, benzodi azepines, barbiturates, ambien, lunesta, and medications with excessive anticholinergic propert. The patient has Dilaudid for pain. Recommend Tylenol or an NSAID if not contraindicated for pain. Will staff with Dr Sumi silva.
[2018-08-13] MEDS: AQUAPHOR TP SCH (20:08)
[2018-08-13] MEDS: LOVENOX SUB-Q SCH (22:58)
[2018-08-13] MEDS: MELATONIN PO SCH (23:02)
[2018-08-13] MEDS: LATANOPROST 0.005% OU SCH (23:06)
[2018-08-14] MEDS: SYNTHROID PO SCH ×2 (06:03)
[2018-08-14] MEDS: SOLU-Medrol IV SCH ×3 (06:05→21:58)
[2018-08-14] MEDS: DUONEB *Not for PRN Use IH SCH ×4 (08:08→20:24)
[2018-08-14] MEDS: PULMICORT IH SCH ×2 (08:08→20:21)
[2018-08-14] MEDS: BROVANA NEBU IH SCH ×2 (08:17→20:21)
[2018-08-14] MEDS: ZITHROMAX 500 MG in NACL 0.9% 250ML 250 ML IV SCH (09:16)
[2018-08-14] MEDS: COZAAR PO SCH (09:17)
[2018-08-14] MEDS: HumaLOG SUB-Q SCH ×4 (09:17→21:58)
[2018-08-14] MEDS: ROCEPHIN/NS 2 GM/100 ML 2 GM/100 ML BAG IV SCH (09:17)
[2018-08-14] MEDS: AQUAPHOR TP SCH ×2 (09:18→20:24)
[2018-08-14] MEDS: K-DUR PO SCH (09:18)
[2018-08-14] MEDS: PEPCID IV SCH (09:18)
[2018-08-14] MEDS: SODIUM CHLORIDE FLUSH SYRINGE 10 ML IV SCH ×2 (09:18→21:59)
--- NOTE | 2018-08-14 11:28 | Progress Note ---
Subjective - Reason for Consult Consult date: 08/14/18 Reason for consult: Psychiatry Follow-up - Chief Complaint Chief complaint: "Hello" 82 y.o. white female who presented to the ER for generalized weakness. Psychiatry was consulted to see the patient for dementia. Today the patient was calm and cooperative, but still slightly confused during the assessment. She was able state her location and ID her family members at the bedside.Also, she remembered speaking with me the provider yesterday. Per her [id number] who stayed overnight with the patient, she stated that the patient slept last night. The patient denies SI/HI's and AVH's. No indications of side effects of her medication. Mental Status Exam - Vital signs Last Vital Signs Temp 98.4 F 08/14/18 07:12 Pulse 78 08/14/18 09:17 Resp 18 08/14/18 08:21 BP 184/79 08/14/18 09:17 Pulse Ox 95 08/14/18 08:19 - Exam Narrative exam: MSE: Appearance: calm, cooperative Behavior: regular eye contact Speech: regular rate and tone Mood: "well" Affect: congruent to mood Thought Process: slight confusion Thought Content: denies SI/HI's and AVH's Motor Activity: sitting up in bed Cognition: A/O x 2 Insight: variable Judgment: fair Assessment and Plan Impression: Delirium. Insomnia. Today the patient was calm and cooperative, but still slightly confused during the assessment. Medical: PNA, UTI, WBC 13.1 trending up Recommendation/Plan: Continue Melatonin 5 mg PO HS for sleep. Recommend Delirium precautions below: 1. Frequently reorient patient and involve him/her in their care (simple explanations of procedures, tests, medications). 2. Lights on and shades open during daytime hours. 3. Write date and goals of care in a visible place. 4. Try to avoid unnecessary interruptions to sleep during nighttime hours. 5. Obtain glasses, hearing aids from home if patient uses these at baseline. 6. Avoid medications that may exacerbate delirium (especially narcotics, benzodiazepines, barbiturates, ambien, lunesta, and medications with excessive anticholinergic propert. The patient has Dilaudid for pain. Recommend Tylenol or an NSAID if not contraindicated for pain. Will staff with Dr Sumi silva.
--- NOTE | 2018-08-14 12:52 | Progress Note ---
Assessment and Plan Acute hypoxemic respiratory failure. Likely acute chronic obstructive pulmonary disease exacerbation. Probable pulmonary edema. Pneumonia. Pulmonary fibrotic or post-radiation changes in the right lung (radiology not classic) Diabetes type 2. Syncope. Hypokalemia Adult failure to thrive. Urinary tract infection - CTA negative for P.E. (GGO's and bilateral effusions more consistent with CHF/pulm edema) - 2D ECHO confirms diastolic dysfunction - continue bronchodilators with pulmonary hygiene per RT - continue gentle diuresis as tolerated by renal function and her hemodynamics - continue systemic steroids tapering - continue supplemental oxygen to keep O2 sats>90% - Blood pressure control - PT/OT/Mobility - Outpatient sleep study - Out patient follow up of imaging post antibiotic therapy and diuresis. - (If the GGO persist may need further evaluation to r/o metastatic breast disease) - continue other care per attending / other case consultant's .... re-evaluate in am & prn Subjective Date of service: 08/14/18 Principal diagnosis: Ac hypoxemic resp failure; Likely AE-COPD; Pneumonia; DM II; Syncope; UTI. Interval history: Patient is seen today for: Acute hypoxemic respiratory failure; Likely Acute COPD exacerbation; Probable Pulm edema; Pneumonia; Pulmonary fibrotic or post- radiation changes in the right lung; Diabetes type 2; Syncope; Hypokalemia; Adult failure to thrive; Urinary tract infection. Seen and examined at bedside; 24hour events reviewed; nursing and respiratory care staff consulted; no adverse overnight events reported to me; resting peacefully in bed; remains on supplemental oxygen; caregiver in room and all his questions were answered; she denies acute chest pains or palpitations; NO N/V/F/C Objective Vital Signs - 12hr 08/14/18 08/14/18 08/14/18 03:26 07:12 08:19 Temperature 97.5 F L 98.4 F Pulse Rate 79 78 Pulse Rate [ Anterior Bilateral] Respiratory 22 20 Rate Respiratory Rate [Anterior Bilateral] Blood Pressure 170/85 184/79 O2 Sat by Pulse 85 87 95 Oximetry 08/14/18 08/14/18 08:21 09:17 Temperature Pulse Rate 78 Pulse Rate [ 76 Anterior Bilateral] Respiratory Rate Respiratory 18 Rate [Anterior Bilateral] Blood Pressure 184/79 O2 Sat by Pulse Oximetry Constitutional: no acute distress, other (elderly looking obese CF, normocephalic and atraumatic with normal respiratory effort at rest) Eyes: non-icteric ENT: oropharynx moist, other (Mallampati 3) Neck: supple, no lymphadenopathy, no JVD, other (large neck circumference) Effort: normal Ascultation: Bilateral: diminished breath sounds, rhonchi Percussion: Bilateral: not dull Cardiovascular: regular rate and rhythm, other (No R/M) Gastrointestinal: normoactive bowel sounds, soft, non-tender, non-distended Integumentary: rash (stasis) Extremities: no cyanosis, pink and warm, pulses normal, no ischemia or petechiae, edema (trace) Neurologic: normal mental status, non-focal exam (grossly), pupils equal and round, motor strength normal and Psychiatric: mood appropriate, affect normal CBC and BMP: 08/15/18 03:31 08/15/18 03:31 ABG, PT/INR, D-dimer: ABG POC ABG pH 7.483 (7.35-7.45) H 08/10/18 15:06 POC ABG pCO2 38.2 (35-45) 08/10/18 15:06 POC ABG pO2 50 (80-105) L 08/10/18 15:06 POC ABG HCO3 28.6 (22-26 mml/L) 08/10/18 15:06 POC ABG Total CO2 30 (23-27mmol/L) 08/10/18 15:06 POC ABG O2 Sat 88 08/10/18 15:06 PT/INR, D-dimer 624.38 ng/mlDDU (0-234) H 08/11/18 13:08 Abnormal lab findings: Abnormal Labs 08/10/18 08/10/18 08/10/18 14:20 14:20 14:20 WBC MCH 33 H MCHC 35 H Lymph % (Auto) 10.5 L [place] % (Auto) 11.0 H Lymph # 1.0 L [place] # 1.1 H Seg Neutrophils % 76.4 H Seg Neuts % (Manual) Lymphocytes % (Manual) Seg Neutrophils # Man Lymphocytes # (Manual) APTT 43.6 H D-Dimer POC ABG pH POC ABG pO2 Sodium Potassium 2.9 L* Chloride BUN Glucose 131 H POC Glucose Lactic Acid Total Protein Albumin 3.0 L Urine WBC (Auto) 08/10/18 08/10/18 08/10/18 14:49 15:06 20:41 WBC MCH MCHC Lymph % (Auto) [place] % (Auto) Lymph # [place] # Seg Neutrophils % Seg Neuts % (Manual) Lymphocytes % (Manual) Seg Neutrophils # Man Lymphocytes # (Manual) APTT D-Dimer POC ABG pH 7.483 H POC ABG pO2 50 L Sodium Potassium Chloride BUN Glucose POC Glucose Lactic Acid 2.20 H* Total Protein Albumin Urine WBC (Auto) 19.0 H 08/10/18 08/11/18 08/11/18 21:43 04:09 04:09 WBC MCH 33 H MCHC 35 H Lymph % (Auto) [place] % (Auto) Lymph # [place] # Seg Neutrophils % Seg Neuts % (Manual) 95.0 H Lymphocytes % (Manual) 3.0 L Seg Neutrophils # Man 8.0 H Lymphocytes # (Manual) 0.3 L APTT D-Dimer POC ABG pH POC ABG pO2 Sodium Potassium Chloride BUN Glucose POC Glucose 236 H Lactic Acid 2.10 H* Total Protein Albumin Urine WBC (Auto) 08/11/18 08/11/18 08/11/18 04:09 08:11 11:32 WBC MCH MCHC Lymph % (Auto) [place] % (Auto) Lymph # [place] # Seg Neutrophils % Seg Neuts % (Manual) Lymphocytes % (Manual) Seg Neutrophils # Man Lymphocytes # (Manual) APTT D-Dimer POC ABG pH POC ABG pO2 Sodium 146 H Potassium Chloride 107.9 H BUN Glucose 152 H POC Glucose 174 H Lactic Acid 2.80 H* Total Protein 5.6 L Albumin 3.1 L Urine WBC (Auto) 08/11/18 08/11/18 08/11/18 11:46 13:08 15:42 WBC MCH MCHC Lymph % (Auto) [place] % (Auto) Lymph # [place] # Seg Neutrophils % Seg Neuts % (Manual) Lymphocytes % (Manual) Seg Neutrophils # Man Lymphocytes # (Manual) APTT D-Dimer 624.38 H POC ABG pH POC ABG pO2 Sodium Potassium Chloride BUN Glucose POC Glucose 210 H Lactic Acid 4.00 H* Total Protein Albumin Urine WBC (Auto) 08/11/18 08/11/18 08/11/18 16:38 19:34 21:09 WBC MCH MCHC Lymph % (Auto) [place] % (Auto) Lymph # [place] # Seg Neutrophils % Seg Neuts % (Manual) Lymphocytes % (Manual) Seg Neutrophils # Man Lymphocytes # (Manual) APTT D-Dimer POC ABG pH POC ABG pO2 Sodium Potassium Chloride BUN Glucose POC Glucose 213 H 270 H Lactic Acid 4.70 H* Total Protein Albumin Urine WBC (Auto) 08/11/18 08/11/18 08/12/18 21:56 23:41 05:29 WBC 15.3 H MCH MCHC Lymph % (Auto) [place] % (Auto) Lymph # [place] # Seg Neutrophils % Seg Neuts % (Manual) Lymphocytes % (Manual) Seg Neutrophils # Man Lymphocytes # (Manual) APTT D-Dimer POC ABG pH POC ABG pO2 Sodium Potassium Chloride BUN Glucose POC Glucose Lactic Acid 5.20 H* 4.40 H* Total Protein Albumin Urine WBC (Auto) 08/12/18 08/12/18 08/12/18 05:29 05:29 08:07 WBC MCH MCHC Lymph % (Auto) [place] % (Auto) Lymph # [place] # Seg Neutrophils % Seg Neuts % (Manual) Lymphocytes % (Manual) Seg Neutrophils # Man Lymphocytes # (Manual) APTT D-Dimer POC ABG pH POC ABG pO2 Sodium Potassium 3.3 L Chloride BUN Glucose 178 H POC Glucose 182 H Lactic Acid 2.40 H* Total Protein Albumin Urine WBC (Auto) 08/12/18 08/12/18 08/12/18 09:57 11:34 17:01 WBC MCH MCHC Lymph % (Auto) [place] % (Auto) Lymph # [place] # Seg Neutrophils % Seg Neuts % (Manual) Lymphocytes % (Manual) Seg Neutrophils # Man Lymphocytes # (Manual) APTT D-Dimer POC ABG pH POC ABG pO2 Sodium Potassium Chloride BUN Glucose POC Glucose 191 H 136 H Lactic Acid 2.90 H* Total Protein Albumin Urine WBC (Auto) 08/12/18 08/13/18 08/13/18 21:17 06:13 06:13 WBC 13.1 H MCH 33 H MCHC Lymph % (Auto) [place] % (Auto) Lymph # [place] # Seg Neutrophils % Seg Neuts % (Manual) Lymphocytes % (Manual) Seg Neutrophils # Man Lymphocytes # (Manual) APTT D-Dimer POC ABG pH POC ABG pO2 Sodium Potassium 3.5 L Chloride BUN 20 H Glucose 168 H POC Glucose 175 H Lactic Acid Total Protein Albumin Urine WBC (Auto) 08/13/18 08/13/18 08/13/18 07:32 11:55 16:32 WBC MCH MCHC Lymph % (Auto) [place] % (Auto) Lymph # [place] # Seg Neutrophils % Seg Neuts % (Manual) Lymphocytes % (Manual) Seg Neutrophils # Man Lymphocytes # (Manual) APTT D-Dimer POC ABG pH POC ABG pO2 Sodium Potassium Chloride BUN Glucose POC Glucose 165 H 240 H 183 H Lactic Acid Total Protein Albumin Urine WBC (Auto) 08/13/18 08/14/18 08/14/18 21:31 07:17 11:30 WBC MCH MCHC Lymph % (Auto) [place] % (Auto) Lymph # [place] # Seg Neutrophils % Seg Neuts % (Manual) Lymphocytes % (Manual) Seg Neutrophils # Man Lymphocytes # (Manual) APTT D-Dimer POC ABG pH POC ABG pO2 Sodium Potassium Chloride BUN Glucose POC Glucose 260 H 198 H 234 H Lactic Acid Total Protein Albumin Urine WBC (Auto) Chest x-ray: pending Allied health notes reviewed: nursing
--- NOTE | 2018-08-14 14:11 | Progress Note ---
Assessment and Plan Assessment and plan: Patient is 82 yo lady with a history of Chronic BLE venous leg stasis with lymphedema, Glaucoma, NIDDM, hypothyroidism, hypertension, COPD who presented to [facility] ED after a mechanical fall at home with inability to get up due to generalized weakness. Brother David and sister Juliana helped with the history. * pCXR IMPRESSION: 1. No acute findings. 2. Probable chronic interstitial fibrosis. * Pelvic x-rays FINDINGS: No fracture or dislocation is seen within the pelvis or either hip. Moderate left and advanced right hip degenerative arthrosis is present. * Chest CT without IMPRESSION: Patchy infiltrate in the right lung as described. Correlate for pneumonia. Borderline to mild cardiomegaly. Degenerative changes in the spine. * Head CT and C-spine CT: IMPRESSION: No acute abnormality. Volume loss and chronic ischemic changes in the white matter. * CT CERVICAL SPINE WITHOUT CONTRAST INDICATION: Acute neck pain, trauma, fall today. FINDINGS: Alignment: Spinal alignment is normal. Bones: There is no acute osseous abnormality. Mild multilevel discogenic DJD is present. Minimal diffuse facet arthropathy is appreciated. Mild osteopenia is noted. Soft tissues: No acute or significant incidental soft tissue abnormality, IMPRESSION: No acute abnormality. Mild multilevel cervical spondylosis. Mild osteopenia. * CTA chest Impression: No pulmonary embolus is seen. There is a very small right pleural effusion. Lungs appear similar to the recent chest CT (without contrast). There is some narrowing of the trachea on today's exam suggesting tracheomalacia Acute hypoxic respiratory failure: treat with O2 and pneumonia AE COPD: treat with steroids, abx, nebs Hypokalemia: replete and monitor bmp closely ILD suspected: consulted Pulmonology Acute metabolic encephalopathy, poa: treat the pneumonia RLL Aspiration pneumonia: treat with abx Type 2 diabetes mellitus: SSI, ada Glaucoma: continue eye drops Hypothyroidism: Continue Synthroid Urinary tract infection: Patient on ceftriaxone for pneumonia which should cover the urinary tract infection Hypertension: Continue antihypertensives, Monitor blood pressure every shift Fall: Probably secondary to underlying illness Physical therapy consulted Advanced care planning/counseling discussion DVT prophylaxis: Patient on Lovenox and GI prophylaxis Elevated D-Dimer, CTA chest negative for PE Leukocytosis most likely from steroids. Patient request Dementia workup, patient will be discharge to family member home. d/w brother David and his Karol at bedside. o2 sat was 87% at rest, now 94% on 2 liters urine culture growing e. colacea patient and family declined SNF patient will go home with family member care d/w home once O2 setup History Interval history: Patient was seen and examined. Follow-up on current diagnosis of PNA. No overnight events reported to me. Patient denies any chest pain, shortness breath, nausea/vomiting or severe headaches. Imaging, nursing note, chart, labs and old chart reviewed. Discussed with patient. Brother David and his Karol at bedside. She is on 3 liters O3 with pulse ox of 93% at rest. Hospitalist Physical - Physical exam Narrative exam: Gen: WDWN, NAD, Awake, Alert, Orientated x 2 HEENT: NCAT, EOMI, PERRL, OP Clear Neck: supple, no adenopathy, no thyromegaly, no JVD CVS/Heart: RRR, normal S1S2, pulses present bilaterally Chest/Lungs: improving diminished bs, rhonchi bilaterally, coarse bs on rll, Symmetrical chest expansion, good air entry bilaterally GI/Abdomen: soft, NTND, good bowel sounds, no guarding or rebound /Bladder: no suprapubic tenderness, no CVA or paraspinal tenderness Extermity/Skin: chronic appearing circumferential nontender erythema noted on the bilateral lower extremity is. This is likely venous stasis. Also has encrusted lesions, chronic appearing, with no tenderness MSK: FROM x 4 Neuro: CN 2-12 grossly intact, no new focal deficits Psych: calm - Constitutional Vitals: Temp Pulse Resp BP Pulse Ox 98.4 F 78 16 184/79 95 08/14/18 07:12 08/14/18 13:30 08/14/18 13:30 08/14/18 09:17 08/14/18 08:19 General appearance: Present: well-nourished. Absent: severe distress Results - Labs CBC & Chem 7: 08/13/18 06:13 08/13/18 06:13 Labs: Laboratory Last Values WBC 13.1 K/mm3 (4.5-11.0) H 08/13/18 06:13 RBC 3.95 M/mm3 (3.65-5.03) 08/13/18 06:13 Hgb 12.9 gm/dl (10.1-14.3) 08/13/18 06:13 Hct 37.5 % (30.3-42.9) 08/13/18 06:13 MCV 95 fl (79-97) 08/13/18 06:13 MCH 33 pg (28-32) H 08/13/18 06:13 MCHC 34 % (30-34) 08/13/18 06:13 RDW 13.8 % (13.2-15.2) 08/13/18 06:13 Plt Count 383 K/mm3 (140-440) 08/13/18 06:13 Lymph % (Auto) 10.5 % (13.4-35.0) L 08/10/18 14:20 Stokes % (Auto) 11.0 % (0.0-7.3) H 08/10/18 14:20 Eos % (Auto) 1.4 % (0.0-4.3) 08/10/18 14:20 Baso % (Auto) 0.7 % (0.0-1.8) 08/10/18 14:20 Lymph # 1.0 K/mm3 (1.2-5.4) L 08/10/18 14:20 Stokes # 1.1 K/mm3 (0.0-0.8) H 08/10/18 14:20 Eos # 0.1 K/mm3 (0.0-0.4) 08/10/18 14:20 Baso # 0.1 K/mm3 (0.0-0.1) 08/10/18 14:20 Add Manual Diff Complete 08/11/18 04:09 Total Counted 100 08/11/18 04:09 Seg Neutrophils % 76.4 % (40.0-70.0) H 08/10/18 14:20 Seg Neuts % (Manual) 95.0 % (40.0-70.0) H 08/11/18 04:09 1.0 % 08/11/18 04:09 3.0 % (13.4-35.0) L 08/11/18 04:09 Reactive Lymphs % (Man) 0 % 08/11/18 04:09 0 % (0.0-7.3) 08/11/18 04:09 0 % (0.0-4.3) 08/11/18 04:09 0 % (0.0-1.8) 08/11/18 04:09 1.0 % 08/11/18 04:09 0 % 08/11/18 04:09 0 % 08/11/18 04:09 0 % 08/11/18 04:09 Nucleated RBC % Not Reportable 08/11/18 04:09 Seg Neutrophils # 7.3 K/mm3 (1.8-7.7) 08/10/18 14:20 Seg Neutrophils # Man 8.0 K/mm3 (1.8-7.7) H 08/11/18 04:09 Band Neutrophils # 0.1 K/mm3 08/11/18 04:09 0.3 K/mm3 (1.2-5.4) L 08/11/18 04:09 Abs React Lymphs (Man) 0.0 K/mm3 08/11/18 04:09 0.0 K/mm3 (0.0-0.8) 08/11/18 04:09 0.0 K/mm3 (0.0-0.4) 08/11/18 04:09 0.0 K/mm3 (0.0-0.1) 08/11/18 04:09 0.1 K/mm3 08/11/18 04:09 0.0 K/mm3 08/11/18 04:09 0.0 K/mm3 08/11/18 04:09 Blast Cells # 0.0 K/mm3 08/11/18 04:09 WBC Morphology Not Reportable 08/11/18 04:09 Hypersegmented Neuts Not Reportable 08/11/18 04:09 Hyposegmented Neuts Not Reportable 08/11/18 04:09 Hypogranular Neuts Not Reportable 08/11/18 04:09 Not Reportable 08/11/18 04:09 Not Reportable 08/11/18 04:09 Not Reportable 08/11/18 04:09 Not Reportable 08/11/18 04:09 Not Reportable 08/11/18 04:09 Not Reportable 08/11/18 04:09 Consistent w auto 08/11/18 04:09 Not Reportable 08/11/18 04:09 Plt Clumps, EDTA Not Reportable 08/11/18 04:09 Not Reportable 08/11/18 04:09 Not Reportable 08/11/18 04:09 Not Reportable 08/11/18 04:09 Plt Morphology Comment Not Reportable 08/11/18 04:09 RBC Morphology Not Reportable 08/11/18 04:09 Dimorphic RBCs Not Reportable 08/11/18 04:09 Not Reportable 08/11/18 04:09 Not Reportable 08/11/18 04:09 Not Reportable 08/11/18 04:09 1+ 08/11/18 04:09 Not Reportable 08/11/18 04:09 Not Reportable 08/11/18 04:09 Not Reportable 08/11/18 04:09 Not Reportable 08/11/18 04:09 Not Reportable 08/11/18 04:09 Not Reportable 08/11/18 04:09 Not Reportable 08/11/18 04:09 Not Reportable 08/11/18 04:09 Not Reportable 08/11/18 04:09 Not Reportable 08/11/18 04:09 Not Reportable 08/11/18 04:09 Not Reportable 08/11/18 04:09 Not Reportable 08/11/18 04:09 Not Reportable 08/11/18 04:09 Not Reportable 08/11/18 04:09 Acanthocytes (Spur) Not Reportable 08/11/18 04:09 Rouleaux Not Reportable 08/11/18 04:09 Not Reportable 08/11/18 04:09 Not Reportable 08/11/18 04:09 Not Reportable 08/11/18 04:09 Not Reportable 08/11/18 04:09 Hem Pathologist Commnt No 08/11/18 04:09 APTT 43.6 Sec. (24.2-36.6) H 08/10/18 14:20 624.38 ng/mlDDU (0-234) H 08/11/18 13:08 POC ABG pH 7.483 (7.35-7.45) H 08/10/18 15:06 POC ABG pCO2 38.2 (35-45) 08/10/18 15:06 POC ABG pO2 50 (80-105) L 08/10/18 15:06 POC ABG HCO3 28.6 (22-26 mml/L) 08/10/18 15:06 POC ABG Total CO2 30 (23-27mmol/L) 08/10/18 15:06 POC ABG O2 Sat 88 08/10/18 15:06 POC ABG Base Excess 5 ((-2) - (+3)mmol/L) 08/10/18 15:06 21 % 08/10/18 15:06 Sodium 144 mmol/L (137-145) 08/13/18 06:13 Potassium 3.5 mmol/L (3.6-5.0) L 08/13/18 06:13 Chloride 104.1 mmol/L (98-107) 08/13/18 06:13 Carbon Dioxide 27 mmol/L (22-30) 08/13/18 06:13 16 mmol/L 08/13/18 06:13 BUN 20 mg/dL (7-17) H 08/13/18 06:13 1.0 mg/dL (0.7-1.2) 08/13/18 06:13 Estimated GFR 53 ml/min 08/13/18 06:13 20 % 08/13/18 06:13 Glucose 168 mg/dL (65-100) H 08/13/18 06:13 POC Glucose 234 (70-105) H 08/14/18 11:30 5.9 % (4-6) 08/10/18 20:41 Lactic Acid 2.90 mmol/L (0.7-2.0) H* 08/12/18 09:57 Calcium 8.5 mg/dL (8.4-10.2) 08/13/18 06:13 Magnesium 2.00 mg/dL (1.7-2.3) 08/10/18 14:20 0.60 mg/dL (0.1-1.2) 08/11/18 04:09 AST 17 units/L (5-40) 08/11/18 04:09 ALT 8 units/L (7-56) 08/11/18 04:09 88 units/L (35-129) 08/11/18 04:09 78 units/L (30-135) 08/10/18 14:20 < 0.010 ng/mL (0.00-0.029) 08/10/18 14:20 NT-Pro-B Natriuret Pep 571.8 pg/mL (0-900) 08/10/18 14:30 5.6 g/dL (6.3-8.2) L 08/11/18 04:09 3.1 g/dL (3.9-5) L 08/11/18 04:09 1.2 % 08/11/18 04:09 TSH 1.380 mlU/mL (0.270-4.200) 08/10/18 14:20 Yellow (Yellow) 08/10/18 14:49 Slightly-cloudy (Clear) 08/10/18 14:49 7.0 (5.0-7.0) 08/10/18 14:49 Ur Specific [place] 1.016 (1.003-1.030) 08/10/18 14:49 <15 mg/dl mg/dL (Negative) 08/10/18 14:49 Neg mg/dL (Negative) 08/10/18 14:49 Neg mg/dL (Negative) 08/10/18 14:49 Sm (Negative) 08/10/18 14:49 Pos (Negative) 08/10/18 14:49 Neg (Negative) 08/10/18 14:49 < 2.0 mg/dL (<2.0) 08/10/18 14:49 Ur Leukocyte Esterase Tr (Negative) 08/10/18 14:49 19.0 /HPF (0.0-6.0) H 08/10/18 14:49 4.0 /HPF (0.0-6.0) 08/10/18 14:49 U Epithel Cells (Auto) 3.0 /HPF (0-13.0) 08/10/18 14:49 3+ /HPF (Negative) 08/10/18 14:49 Few /HPF 08/10/18 14:49 Active Medications - Current Medications Current Medications: Generic Name Dose Route Start Last Admin Trade Name Freq PRN Reason Stop Dose Admin Acetaminophen 650 mg 08/10/18 17:42 Tylenol PO Q4H PRN Pain MILD(1-3)/Fever >100.5/BAKER Albuterol 2.5 mg 08/10/18 17:41 Proventil IH Q4HRT PRN Shortness Of Breath Albuterol/Ipratropium 1 ampul 08/10/18 20:00 08/14/18 13:27 Duoneb *Not For Prn Use* IH 1 ampul QIDRT LOVE Administration Amlodipine Besylate 5 mg 08/14/18 11:00 Norvasc PO QDAY LOVE Arformoterol Tartrate 15 mcg 08/11/18 20:00 08/14/18 08:17 Brovana Nebu IH Not Given Q12HRT LOVE Budesonide 0.5 mg 08/11/18 20:00 08/14/18 08:08 Pulmicort IH 0.5 mg Q12HRT LOVE Administration Enoxaparin Sodium 40 mg 08/10/18 22:00 08/13/18 22:58 Lovenox SUB-Q 40 mg QDAY@2200 LOVE Administration Famotidine 20 mg 08/14/18 22:00 Pepcid PO BID LOVE Hydromorphone HCl 0.5 mg 08/10/18 17:42 Dilaudid IV Q3H PRN Pain , Severe (7-10) Hydrophilic Ointment 1 applic 08/13/18 20:00 08/14/18 09:18 Aquaphor TP 1 applic Q12H LOVE Administration Ceftriaxone Sodium 2 gm in 100 mls @ 200 mls/hr 08/10/18 18:00 08/14/18 09:17 Rocephin/Ns 2 Gm/100 Ml IV 200 mls/hr Q24HR LOVE Administration Protocol Azithromycin 500 mg/ Sodium 250 mls @ 250 mls/hr 08/10/18 18:00 08/14/18 09:16 Chloride IV 250 mls/hr Q24HR LOVE Administration Protocol Insulin Human Lispro 0 unit 08/10/18 22:00 08/14/18 12:08 Humalog SUB-Q 3 unit ACHS LOVE Administration Protocol Latanoprost 1 drops 08/10/18 22:00 08/13/18 23:06 Latanoprost 0.005% OU 1 drops HS LOVE Administration Levothyroxine Sodium 112 mcg 08/10/18 18:00 08/14/18 06:03 Synthroid PO 112 mcg DAILY@0600 LOVE Administration Levothyroxine Sodium 25 mcg 08/10/18 18:00 08/14/18 06:03 Synthroid PO 25 mcg DAILY@0600 LOVE Administration Losartan Potassium 50 mg 08/10/18 18:00 08/14/18 09:17 Cozaar PO 50 mg QDAY LOVE Administration Melatonin 5 mg 08/13/18 22:00 08/13/18 23:02 Melatonin PO 5 mg QHS LOVE Administration Methylprednisolone Sodium Succinate 40 mg 08/14/18 14:00 Solu-Medrol IV Q8H LOVE Ondansetron HCl 4 mg 08/10/18 17:42 Zofran IV Q8H PRN Nausea And Vomiting Potassium Chloride 10 meq 08/10/18 18:00 08/14/18 09:18 K-Dur PO 10 meq QDAY LOVE Administration Sodium Chloride 10 ml 08/10/18 22:00 08/14/18 09:18 Sodium Chloride Flush Syringe 10 Ml IV 10 ml BID LOVE Administration Sodium Chloride 10 ml 08/10/18 17:42 Sodium Chloride Flush Syringe 10 Ml IV PRN PRN LINE FLUSH
[2018-08-14] MEDS: NORVASC PO SCH (16:55)
[2018-08-14] MEDS: LATANOPROST 0.005% OU SCH (21:57)
[2018-08-14] MEDS: LOVENOX SUB-Q SCH (21:57)
[2018-08-14] MEDS: MELATONIN PO SCH (21:57)
[2018-08-14] MEDS: PEPCID PO SCH (21:58)
[2018-08-15 04:40] LABS: Hemoglobin 12.7 gm/dl (10.1-14.3); Mean Corpuscular HGB Conc 34 % (30-34); Mean Corpuscular Volume 95 fl (79-97); Platelet Count 335 K/mm3 (140-440); Red Blood Count 3.89 M/mm3 (3.65-5.03); Red Cell Distribution Width 13.9 % (13.2-15.2)
[2018-08-15 05:02] LABS: BUN/Creatinine Ratio 26; Blood Urea Nitrogen 21 mg/dL (7-17); Calcium 8.3 mg/dL (8.4-10.2); Hemolysis Index 9
[2018-08-15] MEDS: SYNTHROID PO SCH ×2 (06:19)
[2018-08-15] MEDS: SOLU-Medrol IV SCH ×2 (06:19→17:20)
[2018-08-15] MEDS ORDERED: K-DUR PO ONE (09:31)
[2018-08-15] MEDS: PEPCID PO SCH ×2 (09:55→22:33)
[2018-08-15] MEDS: NORVASC PO SCH (09:55)
[2018-08-15] MEDS: K-DUR PO SCH (09:55)
[2018-08-15] MEDS: HumaLOG SUB-Q SCH ×4 (09:55→22:35)
[2018-08-15] MEDS: AQUAPHOR TP SCH ×2 (09:56→20:48)
[2018-08-15] MEDS: COZAAR PO SCH (09:56)
[2018-08-15] MEDS: SODIUM CHLORIDE FLUSH SYRINGE 10 ML IV SCH ×2 (10:00→22:36)
--- NOTE | 2018-08-15 13:11 | Progress Note ---
Subjective - Reason for Consult Consult date: 08/15/18 Reason for consult: Psychiatry Follow-up - Chief Complaint Chief complaint: "I will get better" 82 y.o. white female who presented to the ER for generalized weakness. Psychiatry was consulted to see the patient for dementia. Today the patient was calm and cooperative with some confusion during the assessment. Per collateral information the patient's family members who was at the bedside, they stated that the patient felt like she was at her home last night, They stated that she had to be redirected and that was successful. After being redirected, the patient slept per family members. The patient denies SI/HI's and AVH's. No indications of side effects of her medication. Mental Status Exam - Vital signs Last Vital Signs Temp 97.4 F L 08/15/18 08:03 Pulse 83 08/15/18 09:55 Resp 18 08/15/18 08:03 BP 171/93 08/15/18 09:55 Pulse Ox 87 08/15/18 08:26 - Exam Narrative exam: MSE: Appearance: calm, cooperative Behavior: regular eye contact Speech: regular rate and tone Mood: "okay" Affect: congruent to mood Thought Process: confusion Thought Content: denies SI/HI's and AVH's Motor Activity: sitting up in bed Cognition: A/O x 2 Insight: variable to fair Judgment: variable to fair Assessment and Plan Impression: Delirium. Insomnia. Today the patient was calm and cooperative with confusion during the assessment. Medical: PNA, UTI Recommendation/Plan: Continue Melatonin 5 mg PO HS for sleep. Recommend Delirium precautions below: 1. Frequently reorient patient and involve him/her in their care (simple explanations of procedures, tests, medications). 2. Lights on and shades open during daytime hours. 3. Write date and goals of care in a visible place. 4. Try to avoid unnecessary interruptions to sleep during nighttime hours. 5. Obtain glasses, hearing aids from home if patient uses these at baseline. 6. Avoid medications that may exacerbate delirium (especially narcotics, benzodiazepines, barbiturates, ambien, lunesta, and medications with excessive anticholinergic properties. The patient has Dilaudid for pain. Recommend Tylenol or an NSAID if not contraindicated for pain. Dispo: The patient will be given a referral for outpatient psy services if indicated. This information was explained to the patient's brother David, he verbalized understanding. Will staff with Dr Sumi silva.
[2018-08-15] MEDS: DUONEB *Not for PRN Use IH SCH ×4 (13:54→20:40)
[2018-08-15] MEDS: PULMICORT IH SCH ×2 (13:54→20:40)
[2018-08-15] MEDS: BROVANA NEBU IH SCH ×2 (13:55→20:44)
[2018-08-15] MEDS ORDERED: LEVAQUIN PO SCH (17:00)
[2018-08-15] MEDS: ROCEPHIN/NS 2 GM/100 ML 2 GM/100 ML BAG IV SCH (17:19)
[2018-08-15] MEDS: ZITHROMAX 500 MG in NACL 0.9% 250ML 250 ML IV SCH (17:20)
[2018-08-15] MEDS: DELTASONE PO SCH (17:45)
[2018-08-15] MEDS: LATANOPROST 0.005% OU SCH (22:33)
[2018-08-15] MEDS: LOVENOX SUB-Q SCH (22:33)
[2018-08-15] MEDS: MELATONIN PO SCH (22:34)
[2018-08-15] MEDS: HALDOL PO SCH (22:34)
[2018-08-16] MEDS: SYNTHROID PO SCH ×2 (06:30)
[2018-08-16] MEDS: PULMICORT IH SCH (08:15)
[2018-08-16] MEDS: DUONEB *Not for PRN Use IH SCH ×2 (08:15→12:36)
[2018-08-16] MEDS: BROVANA NEBU IH SCH (08:16)
[2018-08-16] MEDS: HumaLOG SUB-Q SCH ×2 (08:49→12:00)
[2018-08-16] MEDS: AQUAPHOR TP SCH (08:51)
[2018-08-16] MEDS: K-DUR PO SCH (10:00)
[2018-08-16] MEDS: DELTASONE PO SCH (10:00)
[2018-08-16] MEDS: COZAAR PO SCH (10:01)
[2018-08-16] MEDS: NORVASC PO SCH (10:01)
[2018-08-16] MEDS: SODIUM CHLORIDE FLUSH SYRINGE 10 ML IV SCH (10:02)
[2018-08-16] MEDS: HALDOL PO SCH (10:02)
[2018-08-16] MEDS: PEPCID PO SCH (10:02)
--- NOTE | 2018-08-16 12:50 | Progress Note ---
Subjective - Reason for Consult Consult date: 08/16/18 Reason for consult: Psychiatry Follow-up - Chief Complaint Chief complaint: "Hi" 82 y.o. white female who presented to the ER for generalized weakness. Psychiatry was consulted to see the patient for dementia. Today the patient was calm and cooperative during the assessment. She stated that she slept better last night. per the notes, no behavioral disturbances overnight. She denies SI/HI's and AVH's. No indications of side effects of her medication. Mental Status Exam - Vital signs Last Vital Signs Temp 98.5 F 08/16/18 07:33 Pulse 77 08/16/18 10:01 Resp 18 08/16/18 10:00 BP 150/83 08/16/18 10:01 Pulse Ox 96 08/16/18 10:00 - Exam Narrative exam: MSE: Appearance: calm, cooperative Behavior: regular eye contact Speech: regular rate and tone Mood: "okay" Affect: congruent to mood Thought Process: more organized Thought Content: denies SI/HI's and AVH's Motor Activity: sitting up in bed Cognition: A/O x 3 Insight: variable to fair Judgment: fair Assessment and Plan Impression: Delirium. Insomnia. Today the patient was calm and cooperative during the assessment. The patient's mental has improved. Medical: PNA, UTI Recommendation/Plan: Continue Melatonin 5 mg PO HS for sleep. Dispo: The patient was given a referral for outpatient psy services if indicated. This information was explained to the patient's brother David, he verbalized understanding. Will staff with Dr Sumi silva.
--- NOTE | 2018-08-16 13:22 | Discharge Summary ---
Providers - Providers Date of Admission: 08/10/18 16:30 Date of discharge: 08/16/18 Attending physician: SWAPNA JAMES 08/10/18 17:42 Consult to Physician [CONS] Routine Comment: called ans. 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 Physical Therapy Evaluation and Treat [CONS] Routine Comment: Reason For Exam: re-evaluate for SNF Primary care physician: KENISHA FITZPATRICK Hospitalization Condition: Fair Hospital course: Patient is 82 yo lady with a history of Chronic BLE venous leg stasis with lymphedema, Glaucoma, NIDDM, hypothyroidism, hypertension, COPD who presented to [facility] after a mechanical fall at home with inability to get up due to generalized weakness. Brother David and sister Juliana helped with the history. * pCXR IMPRESSION: 1. No acute findings. 2. Probable chronic interstitial fibrosis. * Pelvic x-rays FINDINGS: No fracture or dislocation is seen within the pelvis or either hip. Moderate left and advanced right hip degenerative arthrosis is present. * Chest CT without IMPRESSION: Patchy infiltrate in the right lung as described. Correlate for pneumonia. Borderline to mild cardiomegaly. Degenerative changes in the spine. * Head CT and C-spine CT: IMPRESSION: No acute abnormality. Volume loss and chronic ischemic changes in the white matter. * CT CERVICAL SPINE WITHOUT CONTRAST INDICATION: Acute neck pain, trauma, fall today. FINDINGS: Alignment: Spinal alignment is normal. Bones: There is no acute osseous abnormality. Mild multilevel discogenic DJD is present. Minimal diffuse facet arthropathy is appreciated. Mild osteopenia is noted. Soft tissues: No acute or significant incidental soft tissue abnormality, IMPRESSION: No acute abnormality. Mild multilevel cervical spondylosis. Mild osteopenia. * CTA chest Impression: No pulmonary embolus is seen. There is a very small right pleural effusion. Lungs appear similar to the recent chest CT (without contrast). There is some narrowing of the trachea on today's exam suggesting tracheomalacia Acute hypoxic respiratory failure: treat with O2 and pneumonia AE COPD: treat with steroids, abx, nebs Hypokalemia: replete and monitor bmp closely ILD suspected: consulted Pulmonology Acute metabolic encephalopathy, poa: treat the pneumonia Suspect Dementia but must be completely recovered from pneumonia causing acute delirium/encephalopathy to establish diagnosis of Dementia. also Psych recommended melatonin instead , so I stopped the haldol RLL Aspiration pneumonia: treated with abx Type 2 diabetes mellitus: SSI, ada Glaucoma: continue eye drops Hypothyroidism: Continue Synthroid Urinary tract infection: Patient on ceftriaxone for pneumonia which should cover the urinary tract infection Hypertension: Continue antihypertensives, Monitor blood pressure every shift Fall: Probably secondary to underlying illness Physical therapy consulted Advanced care planning/counseling discussion DVT prophylaxis: Patient on Lovenox and GI prophylaxis Elevated D-Dimer, CTA chest negative for PE Leukocytosis most likely from steroids. Patient request Dementia workup, patient will be discharge to family member home. d/w brother David and his Karol at bedside. o2 sat was 84% at rest today, now 93% on 2 liters urine culture growing e. colacea, abx adjusted patient and family declined SNF patient will go home with family member care d/w home once O2 setup Disposition: [id number] HOME UNDER HOME [facility] Time spent for discharge: 35 minutes Core Measure Documentation - Palliative Care Palliative Care/ Comfort Measures: Not Applicable - Core Measures Any of the following diagnoses?: none - VTE Discharge Requirements Deep Vein Thrombosis/Pulmonary Embolism Present on Admission: No Has pt received <5 days of overlap therapy or INR<2.0: No Anticoagulant overlap therapy prescribed at discharge: No Contraindication No Overlap Therapy order at DC: Not Indicated Exam - Physical Exam Narrative exam: Gen: WDWN, NAD, Awake, Alert, Orientated x 2 HEENT: NCAT, EOMI, PERRL, OP Clear Neck: supple, no adenopathy, no thyromegaly, no JVD CVS/Heart: RRR, normal S1S2, pulses present bilaterally Chest/Lungs: improving diminished bs, rhonchi bilaterally, coarse bs on rll, Symmetrical chest expansion, good air entry bilaterally GI/Abdomen: soft, NTND, good bowel sounds, no guarding or rebound /Bladder: no suprapubic tenderness, no CVA or paraspinal tenderness Extermity/Skin: chronic appearing circumferential nontender erythema noted on the bilateral lower extremity is. This is likely venous stasis. Also has encrusted lesions, chronic appearing, with no tenderness MSK: FROM x 4 Neuro: CN 2-12 grossly intact, no new focal deficits Psych: calm - Constitutional Vitals: Temp Pulse Resp BP Pulse Ox 98.5 F 77 18 150/83 96 08/16/18 07:33 08/16/18 10:01 08/16/18 10:00 08/16/18 10:01 08/16/18 10:00 Plan Activity: other (no strenous activity unless cleard by pcp) Diet: low salt, diabetic Special Instructions: record blood sugar diary (3 times a day) Durable Medical Equipment Needed Upon Discharge: Oxygen, Bedside commode -elevated, Nebulizer, other (glucometer) Follow up with: JESSICA WAYNE [Other] - 3-5 Days SIERRA HYMAN MD [Staff Physician] - 7 Days ANGELICA HART MD [Staff Physician] - 7 Days [facility] [Other] - 7 Days Prescriptions: Melatonin [Melatonin 5MG TAB] 5 mg PO QHS #30 tablet predniSONE [Deltasone] 1 dose PO QDAY 20 Days tab metFORMIN XR [Glucophage XR] 500 mg PO BID #30 tablet levoFLOXacin [Levaquin TAB] 750 mg PO Q24H #5 tablet amLODIPine [Norvasc] 5 mg PO QDAY #30 tablet Famotidine [Pepcid] 20 mg PO BID #30 tablet ALBUTEROL NEB's [Proventil 0.083% NEBS] 2.5 mg IH Q4HRT PRN #30 nebu PRN Reason: Shortness Of Breath Budesonide/Formoterol Fumarate [Symbicort 160-4.5 Mcg Inhaler] 2 puff IH BID #1 hfa.aer.ad Levothyroxine Sodium [Synthroid] 137 mcg PO QDAY #30 tablet Telmisartan 40 mg PO QDAY #30 tablet
--- NOTE | 2018-08-16 14:07 | Progress Note ---
Assessment and Plan Patient alert, awake and resting on 2 litres O2. O2 saturation 96%. Denies chest pain, cough or shortness of breath at this time. Patient said she is going home to day. Recommend to come to my office for pulmonary follow up as out patient. - Patient Problems (1) Acute respiratory failure with hypoxemia Status: Acute Plan to address problem: O2 2 litres via nasal canula. Albuterol/atrovent aerosol treatments q 6 hours PRN for shortness of breath. Brovanna/Budesonide aerosol treatments q 12 hours. Continue Levaquin Continue S/C Lovenox. Continue famotidine. PFTs as out patient. (2) Interstitial lung disease Status: Chronic Plan to address problem: O2 2 litres via nasal canula. Recommend RO,Rheumatoid factor, TANIA level and C ANCA. PFTs as Out patient. (3) Right lower lobe pneumonia Status: Acute Qualifiers: Aspiration pneumonia type: unspecified Plan to address problem: Patient is on Levaquin. (4) Hypertension Status: Chronic Qualifiers: Hypertension type: essential hypertension Qualified Code(s): I10 - Essential (primary) hypertension Plan to address problem: Management as per primary care. (5) Hypothyroidism Status: Chronic Qualifiers: Hypothyroidism type: acquired Qualified Code(s): E03.9 - Hypothyroidism, unspecified Plan to address problem: Management as per primary care. (6) Type 2 diabetes mellitus Status: Chronic Qualifiers: Diabetes mellitus senior living insulin use: without ferry terminal agent use Plan to address problem: Management as per primary care. Subjective Date of service: 08/16/18 Principal diagnosis: Ac hypoxemic resp failure; Likely AE-COPD; Pneumonia; DM II; Syncope; UTI. Interval history: Patient alert, awake and resting on 2 litres O2. O2 saturation 96%. Denies chest pain, cough or shortness of breath at this time. Patient said she is going home to day. Recommend to come to my office for pulmonary follow up as out patient. Objective Vital Signs - 12hr 08/16/18 08/16/18 08/16/18 07:33 08:16 08:17 Temperature 98.5 F Pulse Rate 75 Pulse Rate [ 76 77 Posterior Bilateral Throughout] Respiratory 20 Rate Respiratory 17 18 Rate [Posterior Bilateral Throughout] Blood Pressure 150/83 O2 Sat by Pulse 96 96 Oximetry 08/16/18 08/16/18 10:00 10:01 Temperature Pulse Rate 77 Pulse Rate [ Posterior Bilateral Throughout] Respiratory 18 Rate Respiratory Rate [Posterior Bilateral Throughout] Blood Pressure 150/83 O2 Sat by Pulse 96 Oximetry Constitutional: no acute distress, alert, other (elderly looking obese CF, normocephalic and atraumatic with increased respiratory effort at rest) Eyes: non-icteric ENT: oropharynx moist, other (Mallampati 3) Neck: supple, no lymphadenopathy, no JVD, other (large neck circumference) Effort: mildly labored Ascultation: Bilateral: diminished breath sounds, rhonchi Percussion: Bilateral: not dull Cardiovascular: regular rate and rhythm, other (No R/M) Gastrointestinal: normoactive bowel sounds, soft, non-tender, non-distended Integumentary: rash (stasis) Extremities: no cyanosis, pink and warm, pulses normal, no ischemia or petechiae, edema (trace) Neurologic: normal mental status, non-focal exam (grossly), pupils equal and round, motor strength normal and Psychiatric: mood appropriate, affect normal CBC and BMP: 08/15/18 03:31 08/15/18 03:31 ABG, PT/INR, D-dimer: ABG POC ABG pH 7.483 (7.35-7.45) H 08/10/18 15:06 POC ABG pCO2 38.2 (35-45) 08/10/18 15:06 POC ABG pO2 50 (80-105) L 08/10/18 15:06 POC ABG HCO3 28.6 (22-26 mml/L) 08/10/18 15:06 POC ABG Total CO2 30 (23-27mmol/L) 08/10/18 15:06 POC ABG O2 Sat 88 08/10/18 15:06 PT/INR, D-dimer 624.38 ng/mlDDU (0-234) H 08/11/18 13:08 Abnormal lab findings: Abnormal Labs 08/10/18 08/10/18 08/10/18 14:20 14:20 14:20 WBC MCH 33 H MCHC 35 H Lymph % (Auto) 10.5 L [place] % (Auto) 11.0 H Lymph # 1.0 L [place] # 1.1 H Seg Neutrophils % 76.4 H Seg Neuts % (Manual) Lymphocytes % (Manual) Seg Neutrophils # Man Lymphocytes # (Manual) APTT 43.6 H D-Dimer POC ABG pH POC ABG pO2 Sodium Potassium 2.9 L* Chloride BUN Glucose 131 H POC Glucose Lactic Acid Calcium Total Protein Albumin 3.0 L Urine WBC (Auto) 08/10/18 08/10/18 08/10/18 14:49 15:06 20:41 WBC MCH MCHC Lymph % (Auto) [place] % (Auto) Lymph # [place] # Seg Neutrophils % Seg Neuts % (Manual) Lymphocytes % (Manual) Seg Neutrophils # Man Lymphocytes # (Manual) APTT D-Dimer POC ABG pH 7.483 H POC ABG pO2 50 L Sodium Potassium Chloride BUN Glucose POC Glucose Lactic Acid 2.20 H* Calcium Total Protein Albumin Urine WBC (Auto) 19.0 H 08/10/18 08/11/18 08/11/18 21:43 04:09 04:09 WBC MCH 33 H MCHC 35 H Lymph % (Auto) [place] % (Auto) Lymph # [place] # Seg Neutrophils % Seg Neuts % (Manual) 95.0 H Lymphocytes % (Manual) 3.0 L Seg Neutrophils # Man 8.0 H Lymphocytes # (Manual) 0.3 L APTT D-Dimer POC ABG pH POC ABG pO2 Sodium Potassium Chloride BUN Glucose POC Glucose 236 H Lactic Acid 2.10 H* Calcium Total Protein Albumin Urine WBC (Auto) 08/11/18 08/11/18 08/11/18 04:09 08:11 11:32 WBC MCH MCHC Lymph % (Auto) [place] % (Auto) Lymph # [place] # Seg Neutrophils % Seg Neuts % (Manual) Lymphocytes % (Manual) Seg Neutrophils # Man Lymphocytes # (Manual) APTT D-Dimer POC ABG pH POC ABG pO2 Sodium 146 H Potassium Chloride 107.9 H BUN Glucose 152 H POC Glucose 174 H Lactic Acid 2.80 H* Calcium Total Protein 5.6 L Albumin 3.1 L Urine WBC (Auto) 08/11/18 08/11/18 08/11/18 11:46 13:08 15:42 WBC MCH MCHC Lymph % (Auto) [place] % (Auto) Lymph # [place] # Seg Neutrophils % Seg Neuts % (Manual) Lymphocytes % (Manual) Seg Neutrophils # Man Lymphocytes # (Manual) APTT D-Dimer 624.38 H POC ABG pH POC ABG pO2 Sodium Potassium Chloride BUN Glucose POC Glucose 210 H Lactic Acid 4.00 H* Calcium Total Protein Albumin Urine WBC (Auto) 08/11/18 08/11/18 08/11/18 16:38 19:34 21:09 WBC MCH MCHC Lymph % (Auto) [place] % (Auto) Lymph # [place] # Seg Neutrophils % Seg Neuts % (Manual) Lymphocytes % (Manual) Seg Neutrophils # Man Lymphocytes # (Manual) APTT D-Dimer POC ABG pH POC ABG pO2 Sodium Potassium Chloride BUN Glucose POC Glucose 213 H 270 H Lactic Acid 4.70 H* Calcium Total Protein Albumin Urine WBC (Auto) 08/11/18 08/11/18 08/12/18 21:56 23:41 05:29 WBC 15.3 H MCH MCHC Lymph % (Auto) [place] % (Auto) Lymph # [place] # Seg Neutrophils % Seg Neuts % (Manual) Lymphocytes % (Manual) Seg Neutrophils # Man Lymphocytes # (Manual) APTT D-Dimer POC ABG pH POC ABG pO2 Sodium Potassium Chloride BUN Glucose POC Glucose Lactic Acid 5.20 H* 4.40 H* Calcium Total Protein Albumin Urine WBC (Auto) 08/12/18 08/12/18 08/12/18 05:29 05:29 08:07 WBC MCH MCHC Lymph % (Auto) [place] % (Auto) Lymph # [place] # Seg Neutrophils % Seg Neuts % (Manual) Lymphocytes % (Manual) Seg Neutrophils # Man Lymphocytes # (Manual) APTT D-Dimer POC ABG pH POC ABG pO2 Sodium Potassium 3.3 L Chloride BUN Glucose 178 H POC Glucose 182 H Lactic Acid 2.40 H* Calcium Total Protein Albumin Urine WBC (Auto) 08/12/18 08/12/18 08/12/18 09:57 11:34 17:01 WBC MCH MCHC Lymph % (Auto) [place] % (Auto) Lymph # [place] # Seg Neutrophils % Seg Neuts % (Manual) Lymphocytes % (Manual) Seg Neutrophils # Man Lymphocytes # (Manual) APTT D-Dimer POC ABG pH POC ABG pO2 Sodium Potassium Chloride BUN Glucose POC Glucose 191 H 136 H Lactic Acid 2.90 H* Calcium Total Protein Albumin Urine WBC (Auto) 08/12/18 08/13/18 08/13/18 21:17 06:13 06:13 WBC 13.1 H MCH 33 H MCHC Lymph % (Auto) [place] % (Auto) Lymph # [place] # Seg Neutrophils % Seg Neuts % (Manual) Lymphocytes % (Manual) Seg Neutrophils # Man Lymphocytes # (Manual) APTT D-Dimer POC ABG pH POC ABG pO2 Sodium Potassium 3.5 L Chloride BUN 20 H Glucose 168 H POC Glucose 175 H Lactic Acid Calcium Total Protein Albumin Urine WBC (Auto) 08/13/18 08/13/18 08/13/18 07:32 11:55 16:32 WBC MCH MCHC Lymph % (Auto) [place] % (Auto) Lymph # [place] # Seg Neutrophils % Seg Neuts % (Manual) Lymphocytes % (Manual) Seg Neutrophils # Man Lymphocytes # (Manual) APTT D-Dimer POC ABG pH POC ABG pO2 Sodium Potassium Chloride BUN Glucose POC Glucose 165 H 240 H 183 H Lactic Acid Calcium Total Protein Albumin Urine WBC (Auto) 08/13/18 08/14/18 08/14/18 21:31 07:17 11:30 WBC MCH MCHC Lymph % (Auto) [place] % (Auto) Lymph # [place] # Seg Neutrophils % Seg Neuts % (Manual) Lymphocytes % (Manual) Seg Neutrophils # Man Lymphocytes # (Manual) APTT D-Dimer POC ABG pH POC ABG pO2 Sodium Potassium Chloride BUN Glucose POC Glucose 260 H 198 H 234 H Lactic Acid Calcium Total Protein Albumin Urine WBC (Auto) 08/14/18 08/14/18 08/15/18 16:50 21:44 03:31 WBC MCH 33 H MCHC Lymph % (Auto) [place] % (Auto) Lymph # [place] # Seg Neutrophils % Seg Neuts % (Manual) Lymphocytes % (Manual) Seg Neutrophils # Man Lymphocytes # (Manual) APTT D-Dimer POC ABG pH POC ABG pO2 Sodium Potassium Chloride BUN Glucose POC Glucose 198 H 223 H Lactic Acid Calcium Total Protein Albumin Urine WBC (Auto) 08/15/18 08/15/18 08/15/18 03:31 08:12 11:51 WBC MCH MCHC Lymph % (Auto) [place] % (Auto) Lymph # [place] # Seg Neutrophils % Seg Neuts % (Manual) Lymphocytes % (Manual) Seg Neutrophils # Man Lymphocytes # (Manual) APTT D-Dimer POC ABG pH POC ABG pO2 Sodium Potassium 3.3 L Chloride BUN 21 H Glucose 176 H POC Glucose 170 H 178 H Lactic Acid Calcium 8.3 L Total Protein Albumin Urine WBC (Auto) 08/15/18 08/15/18 08/16/18 17:34 21:59 07:39 WBC MCH MCHC Lymph % (Auto) [place] % (Auto) Lymph # [place] # Seg Neutrophils % Seg Neuts % (Manual) Lymphocytes % (Manual) Seg Neutrophils # Man Lymphocytes # (Manual) APTT D-Dimer POC ABG pH POC ABG pO2 Sodium Potassium Chloride BUN Glucose POC Glucose 232 H 177 H 170 H Lactic Acid Calcium Total Protein Albumin Urine WBC (Auto) 08/16/18 11:35 WBC MCH MCHC Lymph % (Auto) [place] % (Auto) Lymph # [place] # Seg Neutrophils % Seg Neuts % (Manual) Lymphocytes % (Manual) Seg Neutrophils # Man Lymphocytes # (Manual) APTT D-Dimer POC ABG pH POC ABG pO2 Sodium Potassium Chloride BUN Glucose POC Glucose 194 H Lactic Acid Calcium Total Protein Albumin Urine WBC (Auto) Chest x-ray: report reviewed (No acute infiltrates. Chronic interstitial changes.), image reviewed CT scan - chest: report reviewed, image reviewed Additional Studies: CT scan dated 08/10/2018 Automatic exposure control was utilized in an attempt to reduce radiation dose. Findings: Pulmonary arteries: The main pulmonary artery and right and left pulmonary artery branches fill satisfactorily with contrast. No pulmonary embolus is seen. Lungs: There is diffuse groundglass opacity appears unchanged. There are patchy bilateral airspace opacities similar to the prior study. Mediastinum: Unchanged Aorta: Normal in diameter. No dissection seen within limits of this exam. There is a very small right pleural effusion. Impression: No pulmonary embolus is seen Allied health notes reviewed: nursing
[2018-08-16 14:49] VITALS: BP 150/69
== END 2018-08-16 15:10 | disposition home health service (06) | DRG 177 ==
LOC: ED 13:44 → 2B-ACE 16:30
PROVIDERS: ADMIT Internal Medicine; ATTEND Internal Medicine
PROC: 4A033R1 Measurement of Arterial Saturation, Peripheral, Percutaneous Approach (ICD-10-PCS; principal; 2018-08-10)
DX: J69.0 Pneumonitis due to inhalation of food and vomit (principal); J96.01 Acute respiratory failure with hypoxia; G93.41 Metabolic encephalopathy; N39.0 Urinary tract infection, site not specified; J44.0 Chronic obstructive pulmonary disease with (acute) lower respiratory infection; F03.91 Unspecified dementia, unspecified severity, with behavioral disturbance; J44.1 Chronic obstructive pulmonary disease with (acute) exacerbation; F05 Delirium due to known physiological condition; E87.6 Hypokalemia; E03.9 Hypothyroidism, unspecified; I87.8 Other specified disorders of veins; I10 Essential (primary) hypertension; T38.0X5A Adverse effect of glucocorticoids and synthetic analogues, initial encounter; E11.9 Type 2 diabetes mellitus without complications; H40.9 Unspecified glaucoma; J84.9 Interstitial pulmonary disease, unspecified; W18.39XA Other fall on same level, initial encounter; D72.829 Elevated white blood cell count, unspecified; R55 Syncope and collapse; Z88.1 Allergy status to other antibiotic agents; Z82.49 Family history of ischemic heart disease and other diseases of the circulatory system; Z79.899 Other long term (current) drug therapy; Y93.89 Activity, other specified; Y99.8 Other external cause status; Z88.2 Allergy status to sulfonamides; Y92.89 Other specified places as the place of occurrence of the external cause
CPT/HCPCS: 36415; 70450; 71045; 71250; 71275; 72125; 72170; 80048; 80053; 81001; 82140; 82550; 82803; 82962; 83036; 83735; 83880; 84443; 84484; 85007; 85025; 85027; 85379; 85730; 87040; 87076; 87086; 87186; 93005; 93010; 93306; 93970; 94640; 94760; G0378; J0456; J0696; J1650; J1815; J1940; J1956; J2920; J2930; J3480; J7030; J7050; J7512; Q9967

== ENCOUNTER 2018-12-20 16:44 | Observation (INO) | payer MEDICARE ==
--- NOTE | 2018-12-20 18:43 | Emergency Department Report ---
HPI - General Chief Complaint: Anxiety Time Seen by Provider: 12/20/18 18:20 - HPI HPI: Room 2 The patient is a 83 y/o female presenting with a cc of SOB. The patient states that approximately 15:00 today she was in her usual state of health sitting on the sofa watching television. The patient states she suddenly became short of breath and this lasted approximately 3 minutes. Patient denied ever having any formal chest pain/tightness, nausea/vomiting or diaphoresis. The patient states that for 3 minutes the symptoms resolved and have not yet returned. The patient admits to a chronic cough and occasional rhinorrhea. When asked how she is fee ling now the patient states she feels "fine." Patient states she's never had a stress test or cardiac catheterization Location: [See above] Duration: [See above] Quality: [See above] Severity: [See above] Timing: [See above] Context: [See above] Modifying factors: [See above] Associated signs and symptoms: [see above] ED Past Medical Hx - Past Medical History Previous Medical History?: Yes Hx Hypertension: Yes Hx Diabetes: Yes - Surgical History Past Surgical History?: Yes Hx Breast Surgery: Yes (RIGHT LUMPECTOMY) - Family History Family history: no significant - Social History Smoking Status: Former Smoker Substance Use Type: None - Medications Home Medications: Home Medications Medication Instructions Recorded Confirmed Last Taken Type Latanoprost 1 drop OU HS 06/19/14 08/10/18 06/21/14 History Potassium Chloride [K-Tab ER] 10 meq PO DAILY 06/19/14 08/10/18 06/21/14 History ALBUTEROL NEB's [Proventil 0.083% 2.5 mg IH Q4HRT PRN #30 nebu 08/16/18 Unknown Rx NEBS] Acetaminophen [Acetaminophen TAB] 2 tab PO Q4H PRN #15 tablet 08/16/18 Unknown Rx Budesonide/Formoterol Fumarate 2 puff IH BID #1 hfa.aer.ad 08/16/18 Unknown Rx [Symbicort 160-4.5 Mcg Inhaler] Famotidine [Pepcid] 20 mg PO BID #30 tablet 08/16/18 Unknown Rx Levothyroxine Sodium [Synthroid] 137 mcg PO QDAY #30 tablet 08/16/18 Unknown Rx Melatonin [Melatonin 5MG TAB] 5 mg PO QHS #30 tablet 08/16/18 Unknown Rx Telmisartan 40 mg PO QDAY #30 tablet 08/16/18 Unknown Rx amLODIPine 5 mg PO QDAY #30 tablet 08/16/18 Unknown Rx levoFLOXacin [Levaquin TAB] 750 mg PO Q24H #5 tablet 08/16/18 Unknown Rx metFORMIN XR [Glucophage XR] 500 mg PO BID #30 tablet 08/16/18 Unknown Rx predniSONE [Deltasone] 1 dose PO QDAY 20 Days tab 08/16/18 Unknown Rx ED Review of Systems ROS: Stated complaint: YEIMY Other details as noted in HPI Constitutional: denies: fever Eyes: denies: eye pain ENT: denies: throat pain Respiratory: shortness of breath Cardiovascular: denies: chest pain Endocrine: no symptoms reported Gastrointestinal: denies: nausea, vomiting Genitourinary: denies: dysuria Musculoskeletal: denies: back pain Neurological: denies: headache Physical Exam - Physical Exam Vital Signs: Vital Signs 12/20/18 17:01 Temperature 98.4 F Pulse Rate 74 Respiratory 12 Rate Blood Pressure 122/47 Blood Pressure 122/47 [Right] O2 Sat by Pulse 100 Oximetry Physical Exam: GENERAL: The patient is well-developed well-nourished female lying on stretcher not appearing to be in acute distress. [] HEENT: Normocephalic. Atraumatic. Extraocular motions are intact. Patient has moist mucous membranes. NECK: Supple. No meningitic signs are noted. There is no adenopathy noted. CHEST/LUNGS: Clear to auscultation. There is no respiratory distress noted. HEART/CARDIOVASCULAR: Regular. There is no tachycardia. There is no gallop rub or murmur. ABDOMEN: Abdomen is soft, nontender. Patient has normal bowel sounds. There is no abdominal distention. SKIN: There is no rash. There is no edema. There is no diaphoresis. NEURO: The patient is awake, alert, and oriented. The patient is cooperative. The patient has normal speech MUSCULOSKELETAL: There is no evidence of acute injury. ED Course Vital Signs 12/20/18 17:01 Temperature 98.4 F Pulse Rate 74 Respiratory 12 Rate Blood Pressure 122/47 Blood Pressure 122/47 [Right] O2 Sat by Pulse 100 Oximetry ED Medical Decision Making - Lab Data Result diagrams: 12/20/18 18:44 12/20/18 18:44 Laboratory Tests 12/20/18 12/20/18 12/20/18 18:44 18:44 18:44 WBC 8.7 RBC 4.12 Hgb 13.6 Hct 39.9 MCV 97 MCH 33 H MCHC 34 RDW 12.6 L Plt Count 222 Lymph % (Auto) 19.1 [place] % (Auto) 9.3 H Eos % (Auto) 4.5 H Baso % (Auto) 0.3 Lymph # 1.7 [place] # 0.8 Eos # 0.4 Baso # 0.0 Seg Neutrophils % 66.8 Seg Neutrophils # 5.8 PT 12.9 INR 0.98 APTT 37.2 H D-Dimer 231.07 VBG pH Sodium 145 Potassium 4.0 Chloride 107.4 H Carbon Dioxide 25 Anion Gap 17 BUN 16 Creatinine 0.9 Estimated GFR > 60 BUN/Creatinine Ratio 18 Glucose 116 H Calcium 9.1 Magnesium 1.90 Total Bilirubin 0.30 AST 16 ALT 8 Alkaline Phosphatase 64 Total Creatine Kinase 24 L CK-MB (CK-2) 1.0 CK-MB (CK-2) Rel Index 4.1 H Troponin T < 0.010 NT-Pro-B Natriuret Pep 155.8 Total Protein 6.2 L Albumin 3.6 L Albumin/Globulin Ratio 1.4 TSH Free T4 Influenza A (Rapid) Influenza B (Rapid) 12/20/18 12/20/18 12/20/18 18:44 18:44 Unknown WBC RBC Hgb Hct MCV MCH MCHC RDW Plt Count Lymph % (Auto) [place] % (Auto) Eos % (Auto) Baso % (Auto) Lymph # [place] # Eos # Baso # Seg Neutrophils % Seg Neutrophils # PT INR APTT D-Dimer VBG pH 7.354 Sodium Potassium Chloride Carbon Dioxide Anion Gap BUN Creatinine Estimated GFR BUN/Creatinine Ratio Glucose Calcium Magnesium Total Bilirubin AST ALT Alkaline Phosphatase Total Creatine Kinase CK-MB (CK-2) CK-MB (CK-2) Rel Index Troponin T NT-Pro-B Natriuret Pep Total Protein Albumin Albumin/Globulin Ratio TSH 0.461 Free T4 1.60 H Influenza A (Rapid) Negative Influenza B (Rapid) Negative - EKG Data -: EKG Interpreted by Id EKG shows normal: sinus rhythm Rate: normal - EKG Data When compared to previous EKG there are: changes noted Interpretation: nonspecific ST-T wave bertha (new T-wave inversions in leads 1 and aVL) - Radiology Data Radiology results: report reviewed (chest x-ray), image reviewed (chest x-ray) interpreted by me: Chest x-ray-no focal infiltrate, no pneumothorax [facility] [address] [place] [address] XRay Report Signed Patient: JUNIOR SADLER MR#: [id number] : 1935 Acct:[id number] Age/Sex: 83 / F ADM Date: 12/20/18 Loc: ED Attending Dr: Ordering Physician: MABEL MAGALLANES MD Date of Service: 12/20/18 Procedure(s): XR chest routine 2V Accession Number(s): [id number] cc: MABEL MAGALLANES MD Fluoro Time In Minutes: CHEST 2 VIEWS INDICATION / CLINICAL INFORMATION: shortness of breath. COMPARISON: 08/10/2018 FINDINGS: SUPPORT DEVICES: None. HEART / MEDIASTINUM: No significant abnormality. LUNGS / PLEURA: No significant pulmonary or pleural abnormality. No pneumothorax. ADDITIONAL FINDINGS: No significant additional findings. IMPRESSION: 1. No acute findings. Signer Name: Aguilar Carter MD Signed: 12/20/2018 8:43 PM Workstation Name: [id number] Transcribed By: TORY Dictated By: Aguilar Carter MD Electronically Authenticated By: Aguilar Carter MD Signed Date/Time: 12/20/182042 DD/ 40 TD/TT: - Differential Diagnosis dysrhythmia, ACS, PE, Critical care attestation.: If time is entered above; I have spent that time in minutes in the direct care of this critically ill patient, excluding procedure time. ED Disposition Clinical Impression: Shortness of breath, T wave inversion in EKG Disposition: OP ADMIT IP TO THIS HOSP Is pt being admited?: Yes Does the pt Need Aspirin: Yes Condition: Stable Time of Disposition: 21:43 (hospitalist notified (Dr Hernandez))
[2018-12-20 18:59] LABS: Basophils % (Auto) 0.3 % (0.0-1.8); Eosinophils # (Auto) 0.4 K/mm3 (0.0-0.4); Eosinophils % (Auto) 4.5 % (0.0-4.3); Hematocrit 39.9 % (30.3-42.9); Hemoglobin 13.6 gm/dl (10.1-14.3); Lymphocytes # (Auto) 1.7 K/mm3 (1.2-5.4); Lymphocytes % (Auto) 19.1 % (13.4-35.0); Mean Corpuscular HGB Conc 34 % (30-34); Mean Corpuscular Volume 97 fl (79-97); Monocytes # (Auto) 0.8 K/mm3 (0.0-0.8); Monocytes % (Auto) 9.3 % (0.0-7.3); Platelet Count 222 K/mm3 (140-440); Red Blood Count 4.12 M/mm3 (3.65-5.03); Red Cell Distribution Width 12.6 % (13.2-15.2)
[2018-12-20 19:10] LABS: INR 0.98 (0.87-1.13)
[2018-12-20 19:11] LABS: Partial Thromboplastin Time 37.2 Sec. (24.2-36.6)
[2018-12-20 19:25] LABS: Alanine Aminotransferase 8 units/L (7-56); Albumin 3.6 g/dL (3.9-5); BUN/Creatinine Ratio 18; Blood Urea Nitrogen 16 mg/dL (7-17); Calcium 9.1 mg/dL (8.4-10.2); Hemolysis Index 17
[2018-12-20 19:32] LABS: Free T4 (Free Thyroxine) 1.6 ng/dL (0.76-1.46)
--- NOTE | 2018-12-20 20:48 | XRay Report ---
CHEST 2 VIEWS INDICATION / CLINICAL INFORMATION: shortness of breath. COMPARISON: 08/10/2018 FINDINGS: SUPPORT DEVICES: None. HEART / MEDIASTINUM: No significant abnormality. LUNGS / PLEURA: No significant pulmonary or pleural abnormality. No pneumothorax. ADDITIONAL FINDINGS: No significant additional findings. IMPRESSION: 1. No acute findings. Signer Name: Aguilar Carter MD Signed: 12/20/2018 8:43 PM Workstation Name: [id number]
[2018-12-20] MEDS ORDERED: ASPIRIN 325 MG TAB PO ONE (21:43)
[2018-12-20] MEDS ORDERED: NITROGLYCERIN 0.4 MG TAB SUBL SL PRN (22:12)
[2018-12-20] MEDS ORDERED: DEXTROSE 50% IN WATER (25GM) 50 ML SYRINGE IV PRN (22:12)
[2018-12-20] MEDS ORDERED: MAGNESIUM HYDROXIDE (MOM) ORAL LIQD UDC PO PRN (22:12)
[2018-12-20] MEDS ORDERED: hydrALAZINE 20 MG/1 ML INJ IV PRN (22:12)
[2018-12-20] MEDS ORDERED: ACETAMINOPHEN 325 MG TAB PO PRN (22:12)
[2018-12-20] MEDS ORDERED: ONDANSETRON 4 MG/2 ML INJ IV PRN (22:12)
[2018-12-20] MEDS ORDERED: MORPHINE 2 MG/1 ML INJ IV PRN (22:12)
[2018-12-20] MEDS ORDERED: ASPIRIN 325 MG TAB ONE (22:36)
[2018-12-20 23:49] LABS: Basophils % (Auto) 0.6 % (0.0-1.8); Eosinophils # (Auto) 0.3 K/mm3 (0.0-0.4); Eosinophils % (Auto) 4.4 % (0.0-4.3); Lymphocytes # (Auto) 2.5 K/mm3 (1.2-5.4); Lymphocytes % (Auto) 31.8 % (13.4-35.0); Mean Corpuscular HGB Conc 36 % (30-34); Mean Corpuscular Volume 95 fl (79-97); Monocytes # (Auto) 0.8 K/mm3 (0.0-0.8); Monocytes % (Auto) 10.7 % (0.0-7.3); Platelet Count 208 K/mm3 (140-440); Red Blood Count 3.82 M/mm3 (3.65-5.03); Red Cell Distribution Width 13.2 % (13.2-15.2)
[2018-12-21 00:02] LABS: Hematocrit 36.4 % (30.3-42.9); Hemoglobin 13.2 gm/dl (10.1-14.3)
[2018-12-21 00:08] LABS: BUN/Creatinine Ratio 19; Blood Urea Nitrogen 15 mg/dL (7-17); Calcium 8.7 mg/dL (8.4-10.2); Hemolysis Index 9
--- NOTE | 2018-12-21 01:35 | History and Physical Report ---
History of Present Illness Date of examination: 12/20/18 Date of admission: 12/20/18 22:13 Chief complaint: Difficulty breathing History of present illness: 83-year-old female with known history of hypertension diabetes mellitus presenting to the emergency room complaining of shortness of breath. Shortness of breath has been ongoing on and off in the last 24 hours. She denies any chest pain. She denies any nausea vomiting. She indicates she was sitting down at home when she suddenly started having difficulty breathing. Past History Past Medical History: diabetes, hypertension Past Surgical History: hysterectomy, mastectomy Social history: no significant social history Family history: CAD Medications and Allergies Allergies Allergy/AdvReac Type Severity Reaction Status Date / Time cefaclor [From Ceclor] Allergy Hives Verified 06/19/14 11:51 ciprofloxacin [From Cipro] Allergy Unknown Verified 08/10/18 16:56 levofloxacin [From Levaquin] Allergy Unknown Verified 08/10/18 16:56 Sulfa (Sulfonamide Allergy Unknown Verified 08/10/18 16:56 Antibiotics) lisinopril AdvReac Unknown Verified 08/10/18 16:56 usinadol Allergy Unknown Uncoded 08/10/18 16:56 BLOOD PRESSURE MED AdvReac Itching Uncoded 06/19/14 11:51 Home Medications Medication Instructions Recorded Confirmed Last Taken Type Latanoprost 1 drop OU HS 06/19/14 12/20/18 06/21/14 History Famotidine [Pepcid] 20 mg PO BID #30 tablet 08/16/18 12/20/18 Unknown Rx Levothyroxine Sodium [Synthroid] 137 mcg PO QDAY #30 tablet 08/16/18 12/20/18 Unknown Rx Melatonin [Melatonin 5MG TAB] 5 mg PO QHS #30 tablet 08/16/18 12/20/18 Unknown Rx Telmisartan 40 mg PO QDAY #30 tablet 08/16/18 12/20/18 Unknown Rx amLODIPine 5 mg PO QDAY #30 tablet 08/16/18 12/20/18 Unknown Rx metFORMIN XR [Glucophage XR] 500 mg PO BID #30 tablet 08/16/18 12/20/18 Unknown Rx Brimonidine/Timolol 0.2-0.5% 1 drops OU Q12H 12/20/18 12/20/18 Unknown History [Combigan 0.2-0.5%] Cholecalciferol (Vitamin D3) 5,000 unit PO DAILY 12/20/18 12/20/18 Unknown History [Vitamin D3] Oxybutynin Chloride [Ditropan Xl] 10 mg PO QDAY 12/20/18 12/20/18 Unknown History Active Meds: Active Medications Acetaminophen (Tylenol) 650 mg PO Q4H PRN PRN Reason: Pain MILD(1-3)/Fever >100.5/BAKER Aspirin (Ecotrin) 325 mg PO QDAY LOVE Dextrose (D50w (25gm) Syringe) 50 ml IV Q30MIN PRN; Protocol PRN Reason: Hypoglycemia Hydralazine HCl (Apresoline) 10 mg IV Q6HR PRN PRN Reason: FOR SBP > target Insulin Human Regular (Humulin R) 0 units SUB-Q ACHS LOVE; Protocol Magnesium Hydroxide (Milk Of Magnesia) 30 ml PO Q4H PRN PRN Reason: Constipation Morphine Sulfate (Morphine) 2 mg IV Q4H PRN PRN Reason: Pain, Moderate (4-6) Nitroglycerin (Nitrostat) 0.4 mg SL Q5M PRN PRN Reason: Chest Pain Ondansetron HCl (Zofran) 4 mg IV Q8H PRN PRN Reason: Nausea And Vomiting Sodium Chloride (Sodium Chloride Flush Syringe 10 Ml) 10 ml IV BID LOVE Sodium Chloride (Sodium Chloride Flush Syringe 10 Ml) 10 ml IV PRN PRN PRN Reason: LINE FLUSH Review of Systems Respiratory: shortness of breath Exam - Constitutional Vitals: Temp Pulse Resp BP Pulse Ox 97.9 F 62 18 138/61 0 L 12/20/18 23:45 12/20/18 23:45 12/21/18 00:46 12/20/18 23:45 12/20/18 23:45 General appearance: Present: no acute distress, mild distress - EENT Eyes: Present: PERRL, EOM intact ENT: hearing intact, clear oral mucosa, dentition normal - Neck Neck: Present: supple, normal ROM - Respiratory Respiratory effort: normal Respiratory: bilateral: CTA - Cardiovascular Rhythm: regular Heart Sounds: Present: S1 & S2 - Extremities Extremities: no ischemia, pulses intact Extremity abnormal: edema (Trace bilateral ankle edema, dry scaly skin over the lower extremities.), erythema Peripheral Pulses: within normal limits - Abdominal General gastrointestinal: Present: soft, non-tender, tender, non-distended - Integumentary Integumentary: Present: clear, warm, dry - Musculoskeletal Musculoskeletal: strength equal bilaterally - Psychiatric Psychiatric: appropriate mood/affect, intact judgment & insight - Neurologic Neurologic: CNII-XII intact Results - Labs CBC & Chem 7: 12/20/18 23:18 12/20/18 23:18 Labs: Abnormal lab results 12/20/18 12/20/18 12/20/18 Range/Units 18:44 18:44 18:44 MCH 33 H (28-32) pg MCHC (30-34) % RDW 12.6 L (13.2-15.2) % [place] % (Auto) 9.3 H (0.0-7.3) % Eos % (Auto) 4.5 H (0.0-4.3) % APTT 37.2 H (24.2-36.6) Sec. Chloride 107.4 H (98-107) mmol/L Glucose 116 H (65-100) mg/dL Total Creatine Kinase 24 L (30-135) units/L CK-MB (CK-2) Rel Index 4.1 H (0-4) Total Protein 6.2 L (6.3-8.2) g/dL Albumin 3.6 L (3.9-5) g/dL Free T4 (0.76-1.46) ng/dL 12/20/18 12/20/18 Range/Units 18:44 23:18 MCH 35 H (28-32) pg MCHC 36 H (30-34) % RDW (13.2-15.2) % [place] % (Auto) 10.7 H (0.0-7.3) % Eos % (Auto) 4.4 H (0.0-4.3) % APTT (24.2-36.6) Sec. Chloride (98-107) mmol/L Glucose (65-100) mg/dL Total Creatine Kinase (30-135) units/L CK-MB (CK-2) Rel Index (0-4) Total Protein (6.3-8.2) g/dL Albumin (3.9-5) g/dL Free T4 1.60 H (0.76-1.46) ng/dL Assessment and Plan - Patient Problems (1) Shortness of breath Current Visit: Yes Status: Acute Plan to address problem: Probably angina equivalent. Patient admitted and placed on telemetry. We will check serial cardiac enzymes. We will also monitor EKG. Cardiology has been consulted for further evaluation. (2) T wave inversion in EKG Current Visit: Yes Status: Acute Plan to address problem: Patient denies any chest pain. Continue to monitor EKG and will await cardiology evaluation (3) DVT prophylaxis Current Visit: No Status: Acute Plan to address problem: Subacute heparin (4) Type 2 diabetes mellitus Current Visit: No Status: Chronic Qualifiers: Diabetes mellitus residential insulin use: without residential use (5) Hypertension Current Visit: No Status: Chronic Qualifiers: Hypertension type: essential hypertension Qualified Code(s): I10 - Essential (primary) hypertension (6) Hypothyroidism Current Visit: No Status: Chronic Qualifiers: Hypothyroidism type: acquired Qualified Code(s): E03.9 - Hypothyroidism, unspecified Plan to address problem: Will resume routine home medications and monitor TSH (7) Full code status Current Visit: Yes Status: Acute
[2018-12-21 05:38] LABS: Basophils # (Auto) 0.1 K/mm3 (0.0-0.1); Basophils % (Auto) 0.8 % (0.0-1.8); Eosinophils # (Auto) 0.4 K/mm3 (0.0-0.4); Eosinophils % (Auto) 5.9 % (0.0-4.3); Hematocrit 38.2 % (30.3-42.9); Hemoglobin 13.2 gm/dl (10.1-14.3); Lymphocytes # (Auto) 2.7 K/mm3 (1.2-5.4); Lymphocytes % (Auto) 36.4 % (13.4-35.0); Mean Corpuscular HGB Conc 35 % (30-34); Mean Corpuscular Volume 95 fl (79-97); Monocytes # (Auto) 0.9 K/mm3 (0.0-0.8); Monocytes % (Auto) 12.1 % (0.0-7.3); Platelet Count 222 K/mm3 (140-440); Red Blood Count 4.01 M/mm3 (3.65-5.03); Red Cell Distribution Width 12.7 % (13.2-15.2)
[2018-12-21 05:49] LABS: INR 1.01 (0.87-1.13)
[2018-12-21 05:59] LABS: BUN/Creatinine Ratio 20; Blood Urea Nitrogen 16 mg/dL (7-17); Calcium 8.8 mg/dL (8.4-10.2); Hemolysis Index 10
[2018-12-21] MEDS: INSULIN REGULAR, HUMAN 100 UNITS/1 ML SUB-Q SCH ×3 (08:47→17:41)
[2018-12-21] MEDS ORDERED: ASPIRIN EC 325 MG TAB PO SCH (10:00)
--- NOTE | 2018-12-21 10:39 | Consultation ---
History of Present Illness Consult date: 12/21/18 Consult reason: shortness of breath History of present illness: This is an 83-year old woman who presented with reports of acute onset of shortness of breath. This was witnessed by a family member. Patient reports while sitting, she suddenly became short of breath, lasting only a few minutes. There were no chest pain, diaphoresis or palpitations reported. A chest x-ray was negative and her ECG is benign. Patient denies a prior cardiac history. Her latest cardiac workup with an echocardiogram done in August, reports a normal left ventricular systolic function, ejection fraction 55-60%. Past History Past Surgical History: hysterectomy, mastectomy Family history: CAD Medications and Allergies Allergies Allergy/AdvReac Type Severity Reaction Status Date / Time cefaclor [From Ceclor] Allergy Hives Verified 06/19/14 11:51 ciprofloxacin [From Cipro] Allergy Unknown Verified 08/10/18 16:56 levofloxacin [From Levaquin] Allergy Unknown Verified 08/10/18 16:56 Sulfa (Sulfonamide Allergy Unknown Verified 08/10/18 16:56 Antibiotics) lisinopril AdvReac Unknown Verified 08/10/18 16:56 usinadol Allergy Unknown Uncoded 08/10/18 16:56 BLOOD PRESSURE MED AdvReac Itching Uncoded 06/19/14 11:51 Home Medications Medication Instructions Recorded Confirmed Last Taken Type Latanoprost 1 drop OU HS 06/19/14 12/20/18 06/21/14 History Famotidine [Pepcid] 20 mg PO BID #30 tablet 08/16/18 12/20/18 Unknown Rx Levothyroxine Sodium [Synthroid] 137 mcg PO QDAY #30 tablet 08/16/18 12/20/18 Unknown Rx Melatonin [Melatonin 5MG TAB] 5 mg PO QHS #30 tablet 08/16/18 12/20/18 Unknown Rx Telmisartan 40 mg PO QDAY #30 tablet 08/16/18 12/20/18 Unknown Rx amLODIPine 5 mg PO QDAY #30 tablet 08/16/18 12/20/18 Unknown Rx metFORMIN XR [Glucophage XR] 500 mg PO BID #30 tablet 08/16/18 12/20/18 Unknown Rx Brimonidine/Timolol 0.2-0.5% 1 drops OU Q12H 12/20/18 12/20/18 Unknown History [Combigan 0.2-0.5%] Cholecalciferol (Vitamin D3) 5,000 unit PO DAILY 12/20/18 12/20/18 Unknown History [Vitamin D3] Oxybutynin Chloride [Ditropan Xl] 10 mg PO QDAY 12/20/18 12/20/18 Unknown History Active Meds: Active Medications Acetaminophen (Tylenol) 650 mg PO Q4H PRN PRN Reason: Pain MILD(1-3)/Fever >100.5/BAKER Aspirin (Ecotrin) 325 mg PO QDAY [facility] Last Admin: 12/21/18 09:54 Dose: 325 mg Documented by: Dextrose (D50w (25gm) Syringe) 50 ml IV Q30MIN PRN; Protocol PRN Reason: Hypoglycemia Hydralazine HCl (Apresoline) 10 mg IV Q6HR PRN PRN Reason: FOR SBP > 160 Insulin Human Regular (Humulin R) 0 units SUB-Q ACHS [facility]; Protocol Last Admin: 12/21/18 08:47 Dose: Not Given Documented by: Magnesium Hydroxide (Milk Of Magnesia) 30 ml PO Q4H PRN PRN Reason: Constipation Morphine Sulfate (Morphine) 2 mg IV Q4H PRN PRN Reason: Pain, Moderate (4-6) Nitroglycerin (Nitrostat) 0.4 mg SL Q5M PRN PRN Reason: Chest Pain Ondansetron HCl (Zofran) 4 mg IV Q8H PRN PRN Reason: Nausea And Vomiting Sodium Chloride (Sodium Chloride Flush Syringe 10 Ml) 10 ml IV BID [facility] Last Admin: 12/21/18 09:54 Dose: 10 ml Documented by: Sodium Chloride (Sodium Chloride Flush Syringe 10 Ml) 10 ml IV PRN PRN PRN Reason: LINE FLUSH Physical Examination Vital Signs Pulse Resp Pulse Ox 72 12 97 12/20/18 16:56 12/20/18 16:56 12/20/18 16:56 General appearance: no acute distress HEENT: Positive: PERRL Neck: Positive: trachea midline Cardiac: Positive: Reg Rate and Rhythm Lungs: Positive: Decreased Breath Sounds Neuro: Positive: Grossly Intact, Weakness Extremities: Absent: edema Results 12/21/18 05:08 12/21/18 05:08 Cardiac Enzymes 12/20/18 Range/Units 18:44 AST 16 (5-40) units/L CK-MB (CK-2) 1.0 (0.0-4.0) ng/mL Coagulation 12/20/18 12/21/18 Range/Units 18:44 05:08 PT 12.9 13.2 (12.2-14.9) Sec. INR 0.98 1.01 (0.87-1.13) APTT 37.2 H (24.2-36.6) Sec. CBC 12/20/18 12/20/18 12/21/18 Range/Units 18:44 23:18 05:08 WBC 8.7 7.7 7.3 (4.5-11.0) K/mm3 RBC 4.12 3.82 4.01 (3.65-5.03) M/mm3 Hgb 13.6 13.2 13.2 (10.1-14.3) gm/dl Hct 39.9 36.4 38.2 (30.3-42.9) % Plt Count 222 208 222 (140-440) K/mm3 Lymph # 1.7 2.5 2.7 (1.2-5.4) K/mm3 [place] # 0.8 0.8 0.9 H (0.0-0.8) K/mm3 Eos # 0.4 0.3 0.4 (0.0-0.4) K/mm3 Baso # 0.0 0.0 0.1 (0.0-0.1) K/mm3 Comprehensive Metabolic Panel 12/20/18 12/20/18 12/21/18 Range/Units 18:44 23:18 05:08 Sodium 145 143 144 (137-145) mmol/L Potassium 4.0 3.9 3.6 (3.6-5.0) mmol/L Chloride 107.4 H 106.3 108.5 H (98-107) mmol/L Carbon Dioxide 25 25 23 (22-30) mmol/L BUN 16 15 16 (7-17) mg/dL Creatinine 0.9 0.8 0.8 (0.7-1.2) mg/dL Glucose 116 H 92 88 (65-100) mg/dL Calcium 9.1 8.7 8.8 (8.4-10.2) mg/dL AST 16 (5-40) units/L ALT 8 (7-56) units/L Alkaline Phosphatase 64 (35-129) units/L Total Protein 6.2 L (6.3-8.2) g/dL Albumin 3.6 L (3.9-5) g/dL Assessment and Plan - Patient Problems (1) Shortness of breath Current Visit: Yes Status: Acute
--- NOTE | 2018-12-21 11:20 | Progress Note ---
Assessment and Plan Assessment and plan: (1) Shortness of breath Current Visit: Yes Status: Acute Plan to address problem: Probably angina equivalent. Patient admitted and placed on telemetry. We will check serial cardiac enzymes. We will also monitor EKG. Cardiology has been consulted for further evaluation. (2) T wave inversion in EKG Current Visit: Yes Status: Acute Plan to address problem: Patient denies any chest pain. 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: without middle or intermediate school principal use (5) Hypertension Current Visit: No Status: Chronic Qualifiers: Hypertension type: essential hypertension Qualified Code(s): I10 - Essential (primary) hypertension (6) Hypothyroidism Current Visit: No Status: Chronic Qualifiers: Hypothyroidism type: acquired Qualified Code(s): E03.9 - Hypothyroidism, unspecified Plan to address problem: Will resume routine home medications and monitor TSH (7) Full code status Current Visit: Yes Status: Acute Hospitalist Physical - Constitutional Vitals: Temp Pulse Resp BP Pulse Ox 98.0 F 71 71 H 149/60 93 12/21/18 07:51 12/21/18 10:00 12/21/18 10:00 12/21/18 07:51 12/21/18 10:00 General appearance: Present: no acute distress Results - Labs CBC & Chem 7: 12/21/18 05:08 12/21/18 05:08 Labs: Laboratory Last Values WBC 7.3 K/mm3 (4.5-11.0) 12/21/18 05:08 RBC 4.01 M/mm3 (3.65-5.03) 12/21/18 05:08 Hgb 13.2 gm/dl (10.1-14.3) 12/21/18 05:08 Hct 38.2 % (30.3-42.9) 12/21/18 05:08 MCV 95 fl (79-97) 12/21/18 05:08 MCH 33 pg (28-32) H 12/21/18 05:08 MCHC 35 % (30-34) H 12/21/18 05:08 RDW 12.7 % (13.2-15.2) L 12/21/18 05:08 Plt Count 222 K/mm3 (140-440) 12/21/18 05:08 Lymph % (Auto) 36.4 % (13.4-35.0) H 12/21/18 05:08 [place] % (Auto) 12.1 % (0.0-7.3) H 12/21/18 05:08 Eos % (Auto) 5.9 % (0.0-4.3) H 12/21/18 05:08 Baso % (Auto) 0.8 % (0.0-1.8) 12/21/18 05:08 Lymph # 2.7 K/mm3 (1.2-5.4) 12/21/18 05:08 [place] # 0.9 K/mm3 (0.0-0.8) H 12/21/18 05:08 Eos # 0.4 K/mm3 (0.0-0.4) 12/21/18 05:08 Baso # 0.1 K/mm3 (0.0-0.1) 12/21/18 05:08 Seg Neutrophils % 44.8 % (40.0-70.0) 12/21/18 05:08 Seg Neutrophils # 3.3 K/mm3 (1.8-7.7) 12/21/18 05:08 PT 13.2 Sec. (12.2-14.9) 12/21/18 05:08 INR 1.01 (0.87-1.13) 12/21/18 05:08 APTT 37.2 Sec. (24.2-36.6) H 12/20/18 18:44 D-Dimer 231.07 ng/mlDDU (0-234) 12/20/18 18:44 VBG pH 7.354 (7.320-7.420) 12/20/18 18:44 Sodium 144 mmol/L (137-145) 12/21/18 05:08 Potassium 3.6 mmol/L (3.6-5.0) 12/21/18 05:08 Chloride 108.5 mmol/L (98-107) H 12/21/18 05:08 Carbon Dioxide 23 mmol/L (22-30) 12/21/18 05:08 Anion Gap 16 mmol/L 12/21/18 05:08 BUN 16 mg/dL (7-17) 12/21/18 05:08 Creatinine 0.8 mg/dL (0.7-1.2) 12/21/18 05:08 Estimated GFR > 60 ml/min 12/21/18 05:08 BUN/Creatinine Ratio 20 % 12/21/18 05:08 Glucose 88 mg/dL (65-100) 12/21/18 05:08 POC Glucose 85 (70-105) 12/21/18 08:42 Calcium 8.8 mg/dL (8.4-10.2) 12/21/18 05:08 Magnesium 1.90 mg/dL (1.7-2.3) 12/20/18 18:44 Total Bilirubin 0.30 mg/dL (0.1-1.2) 12/20/18 18:44 AST 16 units/L (5-40) 12/20/18 18:44 ALT 8 units/L (7-56) 12/20/18 18:44 Alkaline Phosphatase 64 units/L (35-129) 12/20/18 18:44 Total Creatine Kinase 24 units/L (30-135) L 12/20/18 18:44 CK-MB (CK-2) 1.0 ng/mL (0.0-4.0) 12/20/18 18:44 CK-MB (CK-2) Rel Index 4.1 (0-4) H 12/20/18 18:44 Troponin T < 0.010 ng/mL (0.00-0.029) 12/21/18 05:08 NT-Pro-B Natriuret Pep 155.8 pg/mL (0-900) 12/20/18 18:44 Total Protein 6.2 g/dL (6.3-8.2) L 12/20/18 18:44 Albumin 3.6 g/dL (3.9-5) L 12/20/18 18:44 Albumin/Globulin Ratio 1.4 % 12/20/18 18:44 TSH 0.461 mlU/mL (0.270-4.200) 12/20/18 18:44 Free T4 1.60 ng/dL (0.76-1.46) H 12/20/18 18:44 Influenza A (Rapid) Negative (Negative) 12/20/18 Unknown Influenza B (Rapid) Negative (Negative) 12/20/18 Unknown Active Medications - Current Medications Current Medications: Generic Name Dose Route Start Last Admin Trade Name Freq PRN Reason Stop Dose Admin Acetaminophen 650 mg 12/20/18 22:12 Tylenol PO Q4H PRN Pain MILD(1-3)/Fever >100.5/BAKER Aspirin 325 mg 12/21/18 10:00 12/21/18 09:54 Ecotrin PO 325 mg QDAY LOVE Administration Dextrose 50 ml 12/20/18 22:12 D50w (25gm) Syringe IV Q30MIN PRN Hypoglycemia Protocol Hydralazine HCl 10 mg 12/20/18 22:12 Apresoline IV Q6HR PRN FOR SBP > 160 Insulin Human Regular 0 units 12/21/18 07:30 12/21/18 08:47 Humulin R SUB-Q Not Given ACHS [facility] Protocol Magnesium Hydroxide 30 ml 12/20/18 22:12 Milk Of Magnesia PO Q4H PRN Constipation Morphine Sulfate 2 mg 12/20/18 22:12 Morphine IV Q4H PRN Pain, Moderate (4-6) Nitroglycerin 0.4 mg 12/20/18 22:12 Nitrostat SL Q5M PRN Chest Pain Ondansetron HCl 4 mg 12/20/18 22:12 Zofran IV Q8H PRN Nausea And Vomiting Sodium Chloride 10 ml 12/21/18 10:00 12/21/18 09:54 Sodium Chloride Flush Syringe 10 Ml IV 10 ml BID LOVE Administration Sodium Chloride 10 ml 12/20/18 22:12 Sodium Chloride Flush Syringe 10 Ml IV PRN PRN LINE FLUSH
--- NOTE | 2018-12-21 13:12 | Cat Scan Report ---
CTA CHEST WITH IV CONTRAST INDICATION: Shortness of breath, chest pain. TECHNIQUE: Axial CT images were obtained through the chest after injection of 100 cc Omnipaque 300 IV contrast. 3 plane MIP reconstructions were produced. All CT scans at this location are performed using CT dose reduction for ALARA by means of automated exposure control. COMPARISON: CTA chest 08/12/2018. FINDINGS: Pulmonary Arteries: No pulmonary emboli. Thoracic Aorta: No acute abnormality. Heart: Left atrial enlargement is again noted. Is mild coronary artery calcification. Lungs: There are a few tiny intraparenchymal blebs within both lungs. Previously seen groundglass and interstitial opacities have essentially resolved. No consolidation is seen. Pleura: No pleural effusion. No pneumothorax. Lymph Nodes: No significant adenopathy. Additional Findings: None. Upper Abdomen: No acute findings. Cholelithiasis is again noted. Left adrenal nodularity is stable. Skeletal Structures: No significant osseous abnormality. IMPRESSION: 1. No CT evidence for pulmonary embolism. 2. No acute findings. 3. Incidental findings, as above. Signer Name: Mikey Johnson MD Signed: 12/21/2018 1:08 PM Workstation Name: [id number]
--- NOTE | 2018-12-21 15:12 | Discharge Summary ---
Providers - Providers Date of Admission: 12/20/18 22:13 Attending physician: TOM ACOSTA MD 12/20/18 Consult to Cardiac Rehabilitation [CONS] Routine Reason For Exam: Phase I 12/20/18 22:12 Consult to Physician [CONS] Routine Comment: Consulting Provider: ELIUD BYRD Physician Instructions: Reason For Exam: cardiology Primary care physician: [facility] MD AYDE Hospitalization Condition: Stable Hospital course: 83-year-old woman who presents to the hospital with shortness of breath,denies chest pain. CT angiogram chest no acute findings Case discussed with cardiology, she is had a recent cardiac tests that were normal. Will need to follow-up with cardiology for outpatient event monitor Preventative health counseling performed for 17 minutes PFTs showed mild obstruction, but her clinical condition was not consistent with obstructive lung disease Type 2 diabetes, continue sliding scale Hypothyroidism, TSH is normal Diagnosis Transient shortness of breath NOS Disposition: TO HOME OR SELFCARE Time spent for discharge: 33 mins Core Measure Documentation - Palliative Care Palliative Care/ Comfort Measures: Not Applicable - Core Measures Any of the following diagnoses?: none Exam - Constitutional Vitals: Temp Pulse Resp BP Pulse Ox 98.1 F 66 18 144/60 92 12/21/18 11:54 12/21/18 11:54 12/21/18 11:54 12/21/18 11:54 12/21/18 11:54 General appearance: Present: no acute distress, well-nourished - EENT Eyes: Present: PERRL ENT: hearing intact, clear oral mucosa - Neck Neck: Present: supple, normal ROM - Respiratory Respiratory effort: normal Respiratory: bilateral: CTA - Cardiovascular Heart Sounds: Present: S1 & S2. Absent: rub, click - Extremities Extremities: pulses symmetrical, No edema Peripheral Pulses: within normal limits - Abdominal General gastrointestinal: Present: soft, non-tender, non-distended, normal bowel sounds Female genitourinary: Present: normal - Integumentary Integumentary: Present: clear, warm, dry - Musculoskeletal Musculoskeletal: gait normal, strength equal bilaterally - Psychiatric Psychiatric: appropriate mood/affect, intact judgment & insight - Neurologic Neurologic: CNII-XII intact, moves all extremities Plan Follow up with: BOB GERARDO MD [Primary Care Provider] - 7 Days MARLON MOODY MD [Staff Physician] - 7 Days Prescriptions: Ipratropium/Albuter (Nf) [Combivent (Nf)] 2 puff IH QID PRN #1 inha PRN Reason: Shortness Of Breath
[2018-12-21 15:54] VITALS: BP 147/64
== END 2018-12-21 17:42 | disposition home or self-care (01) ==
LOC: ED 16:44 → 4A 22:13
PROVIDERS: ADMIT Internal Medicine Geriatric Medicine; ATTEND Internal Medicine
DX: R06.02 Shortness of breath (principal); I10 Essential (primary) hypertension; E11.9 Type 2 diabetes mellitus without complications; E03.9 Hypothyroidism, unspecified; Z87.891 Personal history of nicotine dependence
CPT/HCPCS: 36415; 71046; 71275; 80048; 80053; 82550; 82553; 82805; 82962; 83735; 83880; 84439; 84443; 84484; 85025; 85379; 85610; 85730; 87116; 87400; 93005; 93010; 94010; 99284; G0378; Q9967; 96361; J1815

== ENCOUNTER 2019-12-10 03:44 | Emergency (ER) | payer MEDICARE ==
--- NOTE | 2019-12-10 08:23 | Emergency Department Report ---
HPI - General Chief Complaint: Wound/Laceration Time Seen by Provider: 12/10/19 08:02 - HPI HPI: This is an 84-year-old female presents to the emergency department from home with complaint of "a hole in my leg" with some clear discharge. The patient says that she had her right lower leg on a car door yesterday causing what appears to be a circular skin avulsion to the lateral side. She says that "it stopped bleeding, but this morning clear fluid has been coming out." The patient has a past medical history of hypertension, diabetes, bilateral lower extremity lymphedema. She has not taken anything for her symptoms prior to presentation. She has a primary care physician, Dr. Green, but has not seen them regarding the symptoms. ED Past Medical Hx - Past Medical History Previous Medical History?: Yes Hx Hypertension: Yes Hx CVA: No Hx Heart Attack/AMI: No Hx Congestive Heart Failure: No Hx Diabetes: Yes Hx Deep Vein Thrombosis: No Hx Pulmonary Embolism: No Hx GERD: No Hx Liver Disease: No Hx Renal Disease: No Hx Sickle Cell Disease: No Hx Arthritis: No Hx Headaches / Migraines: No Hx Seizures: No Hx Kidney Stones: Yes Hx Psychiatric Treatment: No Hx Asthma: No Hx COPD: No Hx Tuberculosis: No Hx Dementia: No Hx HIV: No Additional medical history: Lymphadema (Bilateral legs) - Surgical History Past Surgical History?: Yes Hx Coronary Stent: No Hx Open Heart Surgery: No Hx Pacemaker: No Hx Internal Defibrillator: No Hx Cholecystectomy: No Hx Appendectomy: No Hx Breast Surgery: Yes (RIGHT LUMPECTOMY) - Social History Smoking Status: Never Smoker Substance Use Type: None - Medications Home Medications: Home Medications Medication Instructions Recorded Confirmed Last Taken Type Latanoprost 1 drop OU HS 06/19/14 12/20/18 06/21/14 History Famotidine [Pepcid] 20 mg PO BID #30 tablet 08/16/18 12/20/18 Unknown Rx Levothyroxine Sodium [Synthroid] 137 mcg PO QDAY #30 tablet 08/16/18 12/20/18 Unknown Rx Melatonin [Melatonin 5MG TAB] 5 mg PO QHS #30 tablet 08/16/18 12/20/18 Unknown Rx Telmisartan 40 mg PO QDAY #30 tablet 08/16/18 12/20/18 Unknown Rx amLODIPine 5 mg PO QDAY #30 tablet 08/16/18 12/20/18 Unknown Rx metFORMIN XR [Glucophage XR] 500 mg PO BID #30 tablet 08/16/18 12/20/18 Unknown Rx Brimonidine/Timolol 0.2-0.5% 1 drops OU Q12H 12/20/18 12/20/18 Unknown History [Combigan 0.2-0.5%] Cholecalciferol (Vitamin D3) 5,000 unit PO DAILY 12/20/18 12/20/18 Unknown History [Vitamin D3] Oxybutynin Chloride [Ditropan Xl] 10 mg PO QDAY 12/20/18 12/20/18 Unknown History Ipratropium/Albuter (Nf) 2 puff IH QID PRN #1 inha 12/21/18 Unknown Rx [Combivent (Nf)] ED Review of Systems ROS: Stated complaint: RT LEG ISSUES Other details as noted in HPI Comment: All other systems reviewed and negative Constitutional: denies: chills, fever Eyes: denies: eye pain, vision change ENT: denies: ear pain, throat pain Respiratory: denies: cough, shortness of breath Cardiovascular: denies: chest pain, palpitations Gastrointestinal: denies: abdominal pain, vomiting Genitourinary: denies: dysuria, discharge Musculoskeletal: arthralgia, myalgia. denies: back pain Skin: lesions (skin avulsion). denies: rash Neurological: denies: numbness, paresthesias Physical Exam - Physical Exam Vital Signs: Vital Signs 12/10/19 04:12 Temperature 97.8 F Pulse Rate 68 Respiratory 18 Rate Blood Pressure 164/90 [Left] O2 Sat by Pulse 96 Oximetry Physical Exam: GENERAL: The patient is well-developed well-nourished. HENT: Normocephalic. Atraumatic. Patient has moist mucous membranes. EYES: Extraocular motions are intact. NECK: Supple. Trachea is midline. CHEST/LUNGS: Clear to auscultation. There is no respiratory distress noted. HEART/CARDIOVASCULAR: Regular. There is no tachycardia. ABDOMEN: Abdomen is soft, nontender. Patient has normal bowel sounds. SKIN: Skin is warm and dry. Bilateral lower extremity lymphedema from the mid tib-fib distally. There is a circular skin avulsion, about the size of a quarter, to the right lateral mid lower leg. No current bleeding. No surrounding erythema. NEURO: The patient is awake, alert, and oriented. The patient is cooperative. The patient has no focal neurologic deficits. Normal speech. MUSCULOSKELETAL: There is no tenderness. ED Course Vital Signs 12/10/19 04:12 Temperature 97.8 F Pulse Rate 68 Respiratory 18 Rate Blood Pressure 164/90 [Left] O2 Sat by Pulse 96 Oximetry ED Medical Decision Making - Lab Data Result diagrams: 12/10/19 08:26 12/10/19 08:26 - Radiology Data Radiology results: image reviewed interpreted by me: X-ray of the right tib-fib did not show any fracture, dislocation, or any acute process. - Medical Decision Making The patient hit her right leg on a car door causing a circular skin avulsion about the size of a quarter. Initially the patient had some bleeding but she comes in complaining that it is draining some clear fluid. The patient has moderate bilateral distal lower extremity lymphedema which may be the reason for some of the clear drainage. No surrounding erythema, warmth for concern of cellulitis. Patient's labs have been mostly unremarkable except for mild renal insufficiency with a GFR of 53, but a normal creatinine. Her vital signs have been reassuring throughout her ED course including being afebrile. Patient has been instructed to follow-up with her primary care physician and return to the emergency department with any worsening of her symptoms or with any acute distress. She was given instructions about acute wound care and was given a referral for the wound care clinic. Critical Care Time: No Critical care attestation.: If time is entered above; I have spent that time in minutes in the direct care of this critically ill patient, excluding procedure time. ED Disposition Clinical Impression: Mild renal insufficiency Avulsion of skin of right lower leg Qualifiers: Encounter type: initial encounter Qualified Code(s): S81.801A - Unspecified open wound, right lower leg, initial encounter Hypertension Qualifiers: Hypertension type: essential hypertension Qualified Code(s): I10 - Essential (primary) hypertension Lymphedema of leg Qualifiers: Laterality: right Qualified Code(s): I89.0 - Lymphedema, not elsewhere class ified Disposition: DC-01 TO HOME OR SELFCARE Is pt being admited?: No Condition: Stable Instructions: Acute Wound Care (ED), Skin Avulsion (ED), Hypertension (ED) Additional Instructions: Clean the area with soap and water and then make sure it remains dry. Please follow-up with your primary care physician in the next few days. I have also given you a referral for the local wound care clinic. Return to the emergency department with any worsening of your symptoms, new or concerning symptoms not addressed during this current emergency department visit, or with any acute distress. Referrals: [facility] [Other] - 2-3 Days [facility] [Outside] - 2-3 Days Time of Disposition: 09:23
[2019-12-10 08:34] LABS: Basophils # (Auto) 0.1 K/mm3 (0.0-0.1); Basophils % (Auto) 0.7 % (0.0-1.8); Eosinophils # (Auto) 0.5 K/mm3 (0.0-0.4); Eosinophils % (Auto) 5.7 % (0.0-4.3); Hematocrit 40.1 % (30.3-42.9); Hemoglobin 14.2 gm/dl (10.1-14.3); Lymphocytes # (Auto) 2.3 K/mm3 (1.2-5.4); Lymphocytes % (Auto) 24.7 % (13.4-35.0); Mean Corpuscular HGB Conc 35 % (30-34); Mean Corpuscular Volume 96 fl (79-97); Platelet Count 231 K/mm3 (140-440); Red Blood Count 4.18 M/mm3 (3.65-5.03); Red Cell Distribution Width 13.1 % (13.2-15.2)
[2019-12-10 08:48] LABS: Calcium 9.1 mg/dL (8.4-10.2)
--- NOTE | 2019-12-10 09:07 | XRay Report ---
RIGHT TIBIA-FIBULA 3 VIEW(S) INDICATION / CLINICAL INFORMATION: right lower leg injury COMPARISON: None available. FINDINGS: BONES / JOINT(S): No acute fracture or subluxation. 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 SOFT TISSUES: Diffuse lower extremity edema. ADDITIONAL FINDINGS: None. Signer Name: Juan David Buchanan MD Signed: 12/10/2019 9:02 AM Workstation Name: [id number]
[2019-12-10 10:13] VITALS: BP 174/76
== END 2019-12-10 10:11 | disposition home or self-care (01) ==
LOC: ED 03:44
DX: S81.801A Unspecified open wound, right lower leg, initial encounter (principal); I89.0 Lymphedema, not elsewhere classified; I10 Essential (primary) hypertension; N28.9 Disorder of kidney and ureter, unspecified; E11.9 Type 2 diabetes mellitus without complications; Z87.442 Personal history of urinary calculi; Z98.890 Other specified postprocedural states; Z79.84 Long term (current) use of oral hypoglycemic drugs; Z79.899 Other long term (current) drug therapy; Z88.1 Allergy status to other antibiotic agents; Z88.8 Allergy status to other drugs, medicaments and biological substances; X58.XXXA Exposure to other specified factors, initial encounter; Y93.89 Activity, other specified; Y92.89 Other specified places as the place of occurrence of the external cause; Y99.8 Other external cause status
CPT/HCPCS: 36415; 80048; 85025